=== PATIENT | female | born 1970 ===

== ENCOUNTER 2024-08-18 07:14 | Emergency (ER) | payer BC, SELFPAY ==
--- NOTE | ~2024-08-18 | CT_ITS ---
EXAMINATION: CT ABDOMEN AND PELVIS WITHOUT CONTRAST CLINICAL INFORMATION: Left flank pain COMPARISON: None available. TECHNIQUE: Multidetector volumetric imaging was performed from the superior aspect of the liver through the pubic symphysis. Sagittal and coronal reformatted images were obtained on the technologist's workstation. This CT examination was performed using dose optimization techniques as appropriate, variously including the following: *Automated exposure control *Adjustment of mA and/or kV according to patient size (this includes techniques or standardized protocols for targeted exams where dose is matched to indication/reason for exam; i.e. extremities or head) *Use of iterative reconstruction technique DLP: 535 mGy-cm FINDINGS: LUNG BASES: There is a minor infiltrate, at the left lung base, anterior left lower lobe near the inferior major fissure. It could be inflammatory. No pleural effusion. LIVER, GALLBLADDER, AND BILIARY TREE: There are a few too small to characterize foci scattered throughout the liver likely tiny cysts. IV contrast was not utilized. No suspicious masses of the liver. No intrahepatic biliary dilatation. 1 tiny gallstone in the gallbladder. No adjacent inflammatory change. PANCREAS: Unremarkable. SPLEEN: Unremarkable. ADRENAL GLANDS: Unremarkable. KIDNEYS AND URETERS: There is a 2 mm stone in the proximal left ureter causing mild left pelviectasis and hydronephrosis. There is an amalgamation of calcium in the dependent left renal pelvis at 8 mm. 1 mm stone right kidney without hydronephrosis. No suspicious mass or perinephric collection. BLADDER: Unremarkable. GASTROINTESTINAL TRACT: The small and large bowel are unremarkable. The appendix is unremarkable. ABDOMINAL WALL: Small fat-containing umbilical hernia. LYMPH NODES: Normal. VASCULAR: Unremarkable. PELVIC VISCERA: Uterus absent. No ascites or adnexal masses. OSSEOUS STRUCTURES: Unremarkable. CT/CT abdomen pelvis wo IV con IMPRESSION: Small stone proximal left ureter with resultant mild left hydronephrosis. Fleischner guidelines were followed. Electronically signed by: Tarik Liang MD 08/18/2024 10:09 AM EDT
[2024-08-18 07:18] VITALS: BP 132/32; PULSE 78; RESP 19; TEMP 36.6; O2SAT 98; BMI 26.6
[2024-08-18 07:34] LABS: MANUAL DIFF FLAG NO
[2024-08-18 07:36] LABS: Basophils Percent Auto 0.3 % (0-2); Eosinophils Absolute Auto 0.1 X10*3/uL (0.0-0.4); Eosinophils Percent Auto 0.3 % (0-4); Hematocrit 46.4 % (37.0-47.0); Hemoglobin 16.1 g/dl (12.0-16.0); Imm Gran Abs Auto 0.08 X10*3/uL (0.00-0.03); Imm Gran Pct Auto 0.5 % (0.0-0.4); Lymphocytes Absolute Auto 1.6 X10*3/uL (1.2-4.9); Lymphocytes Percent Auto 10.1 % (20-40); Mean Corpuscular HGB Conc 34.7 g/dl (31.0-35.0); Mean Corpuscular Hemoglobin 31.7 pg (27.0-33.0); Mean Corpuscular Volume 91.3 fL (80.0-98.0); Mean Platelet Volume 9.1 fL (9.4-12.3); Monocytes Absolute Auto 0.7 X10*3/uL (0.1-1.2); Monocytes Percent Auto 4.5 % (2-11); Neutrophils Absolute Auto 13.4 x10*3/uL (2.0-8.3); Neutrophils Percent Auto 84.3 % (45-73); Platelet Count 374 X10*3/uL (160-400); Red Blood Count 5.08 X10*6/uL (4.20-5.50); Red Cell Distribution Width 12.6 % (11.0-16.0); White Blood Count 15.9 X10*3/uL (4.8-10.8)
[2024-08-18 07:37] LABS: Appearance Urine Clear; Color Urine Yellow; Glucose Urine UA Negative (Negative); Leukocyte Esterase Urine Large (3+) (Negative); Nitrite Urine Positive (Negative); UMIC TRIGGER UACC YES; Urine Blood Small (1+) (Negative); Urine Ketones Negative (Negative); Urine Protein Negative (Neg-Trace)
[2024-08-18 07:39] LABS: UPreg QC Valid YES; Urine Pregnancy NEGATIVE (NEGATIVE)
[2024-08-18 07:47] LABS: Bacteria Urine 2+ (None Seen); Hyaline Casts Urine 0-2 /LPF (0-2); Squamous Epithelial Cell Urine 0-2 /HPF (0-2); UACC Culture Trigger YES; WBC Urine >50 /HPF (0-5)
[2024-08-18 07:54] LABS: Alanine Aminotransferase 13 U/L (0-31); Albumin Level 4.3 g/dL (3.5-5.0); Alkaline Phosphatase 104 U/L (39-117); Anion Gap 14 (12-20); Aspartate Amino Transferase 16 U/L (5-31); Bilirubin Direct 0.1 mg/dL (0.0-0.5); Bilirubin Total 0.5 mg/dL (0.0-1.0); Blood Urea Nitrogen 10 mg/dL (9-16); Calcium 9.8 mg/dL (8.4-10.2); Carbon Dioxide 27 mmol/L (22-29); Chloride 103 mmol/L (96-108); Creatinine Clr Calc Pharmacy 72.6; Estimated Glomerular Filt Rate > 60; Glucose Random 118 mg/dL (60-115); Lipase 21 U/L (8-78); Potassium 3.9 mmol/L (3.3-5.1); Sodium 140 mmol/L (135-145); Total Protein 7.7 g/dL (6.5-8.0)
--- NOTE | 2024-08-18 07:54 | ED.FEMALEGU ---
HPI - Female Genitourinary General Chief complaint: Urogenital-Female Stated complaint: nausea-abd pain Time Seen by Provider: 08/18/24 07:53 Source: patient and RN notes reviewed Mode of arrival: ambulatory Limitations: no limitations History of Present Illness ED Provider: Lexy Serna PA-C HPI Narrative: This is a 54-year-old female who presents emergency department with complaints of left-sided flank pain. Patient states that she has had ongoing intermittent problems on the left since December, has been seen by Urology, and was told that she needs a CT scan however patient reports that they did not order one. She endorses nausea, pain with urination, urinary frequency and urgency. She states that this pain is much different than previous. She is visibly uncomfortable and does not want to answer any other questions. Upon re-evaluation after receiving pain medication in the emergency department today, patient states that she has had ongoing left flank pain/problems since December 2023. She states she has had intermittent left-sided flank pain. She states that she has followed up with her primary care physician, where she would have urinalysis performed without any acute signs of infection. She states that there was a time that she had hematuria, as well as microscopic blood in her urine and was given referral to a urologist. Urologist had performed an ultrasound which revealed a kidney stone. The urologist who she saw on Friday through [facility] wanted to order a CT scan however they needed a prior authorization prior to performing this CT scan. She states that yesterday she went to the [facility], where she had one beer and shortly afterwards she developed severe left-sided flank pain. She states that the pain was sharp in nature and radiated into her right flank. She endorses some nausea and vomiting. She states that this pain is the same pain she has been experiencing for months however much worse. She reports that she has had a hysterectomy, no other belly surgeries. She also reports dysuria, urinary frequency and urgency. No fevers or chills. No chest pain. MD elicited complaint: dysuria, flank pain, urinary incontinence and difficulty urinating Pertinent past history: hysterectomy Onset (ago): month(s) Severity: severe Female Urogenital Radiation: L Flank Severity scale (1-10): >10 Quality of pain: cramping and sharp Consistency: constant and progressively worsening Vaginal discharge: none Vaginal bleeding: none Urinary symptoms: Dysuria, Urgency and Frequency Associated symptoms: denies other symptoms Treatment prior to arrival: none Patient : No Related Data Previous Rx's ?Medication ?Instructions ?Recorded cefpodoxime 200 mg tablet 200 mg PO Q12H 10 days #20 tabs 08/18/24 ketorolac 10 mg tablet 10 mg PO Q6H 3 days #12 tabs 08/18/24 ondansetron 4 mg disintegrating 4 mg PO Q6-8H PRN nausea and 08/18/24 tablet vomiting #12 tabs oxycodone 5 mg tablet 5 mg PO Q6H PRN pain #7 tabs 08/18/24 tamsulosin 0.4 mg capsule (Flomax) 0.4 mg PO DAILY 2 weeks #14 caps 08/18/24 Allergies Allergy/AdvReac Type Severity Reaction Status Date / Time erythromycin base Allergy Chest Pain Verified 08/18/24 07:20 Review of Systems Review of Systems: Yes all other systems are reviewed and are negative Constitutional: Constitutional: Reports as per [facility] Social History Social History Advance Directives: No Advance Directives Information Provided: No Do you have a plan to hurt others: No Plan Physical Exam Vital Signs: Vital Signs: Last Vital Signs Temp 98.5 F 08/18/24 13:51 Pulse 71 08/18/24 13:51 Resp 16 08/18/24 13:51 BP 98/49 L 08/18/24 13:51 Pulse Ox 97 08/18/24 13:51 O2 Del Method Room Air 08/18/24 13:51 BMI result Body Mass Index 26.6 Const: Other: Patient appears to be uncomfortable, grabbing at left flank General: cooperative Orientation/consciousness: patient oriented x3 Limitations: no limitations HEENT: Head: Yes normal to inspection, Yes normocephalic and Yes atraumatic Ears: hearing grossly normal bilaterally General nose exam: Normal external nose present Face and sinus: Yes normal facial exam Mouth: Normal oral and palatal mucosa present, oropharynx normal and moist mucous membranes Throat: Yes posterior oropharynx normal Eyes: General: appearance normal, both eyes and all related structures Eyelids: Yes eyelids normal Conjunctivae: conjunctivae normal Sclerae: sclerae normal Pupils: Equal, round and reactive pupils present EOM: EOMs intact bilaterally Neck: Neck: Yes normal visual inspection, Yes full ROM and Yes no lymphadenopathy Lymphatic: no lymphadenopathy noted Chest: Chest palpation & inspection: normal inspection of the chest Resp: Effort & Inspection: normal respiratory effort and able to speak in complete sentences Auscultation: clear to auscultation bilaterally, no crackles, no rales, no rhonchi and no wheezes Cardio: Rate: regular rate Rhythm: regular rhythm Heart sounds: S1 normal heart sound present and S2 normal heart sound present GI: Other: Abdomen is soft, with tenderness palpation in the left flank, no rebound or guarding. Inspection: Yes normal to inspection : Other: Positive CVA tenderness on the left Skin: General skin exam: no rashes or lesions noted Trauma: no lacerations or abrasions Wounds: no wounds Neuro: General: patient oriented x3 and moves all extremities Cranial nerves: Yes Equal, round and reactive pupils present Extrem: General: Yes normal to inspection Right upper extremity: normal to inspection Left upper extremity: normal to inspection Right lower extremity: normal to inspection Left lower extremity: normal to inspection Course Reevaluation(s) Reevaluation #1: Patient re-evaluated, feeling much better, nausea has since improved. Awaiting CT scan Time: 09:22 Reevaluation #2: CT scan returns, she does have a small stone proximal left ureter with resultant mild left hydronephrosis. There is also a malgamation of calcium in the dependent left renal pelvis at 8 mm. 1 mm stone right kidney without hydronephrosis. Spoke to Dr. Mohamud, who will review patient's case. Patient reporting worsening pain and nausea. Will medicate with Reglan, Benadryl, as well as start treatment for pyelonephritis with ceftriaxone [address] Mohamud recommendations. Time: 11:25 Reevaluation #3: Patient feeling much better after receiving medications. She would like to be discharged home. Dr. Mohamud recommending to treat for pyelonephritis with antibiotics and Flomax. Dr. Mohamud states that the nurse will triage Friday for symptoms. Discussed overall workup with patient and at bedside. Patient will be discharged on cefpodoxime 200 mg twice a day for 10 days. Also given Zofran, Toradol, Flomax, and oxycodone use for severe pain only. Stressed the urgency of returning if any new or worsening symptoms occur. She understands and agrees with plan. Patient stable for discharge. Time: 13:58 Medications Administered Discontinued Medications Generic Name Dose Route Start Last Admin Trade Name Neo PRN Reason Stop Dose Admin Acetaminophen 975 mg 08/18/24 10:58 08/18/24 13:47 Acetaminophen 325 Mg Tablet PO 08/18/24 10:59 Not Given ONCE ONE Diphenhydramine HCl 25 mg 08/18/24 11:23 08/18/24 12:26 Diphenhydramine Hcl 50 Mg/Ml Vial IVPUSH 08/18/24 11:24 25 mg ONCE ONE Administration Sodium Chloride 1,000 mls @ 999 mls/hr 08/18/24 08:03 08/18/24 09:37 Ns IV 08/18/24 09:03 Infused .Q1H1M ONE Infusion Sodium Chloride 1,000 mls @ 999 mls/hr 08/18/24 10:58 08/18/24 12:32 Ns IV 08/18/24 11:58 Infused .Q1H1M ONE Infusion Ceftriaxone Sodium 1 gm/ 50 mls @ 100 mls/hr 08/18/24 10:58 08/18/24 12:27 Sodium Chloride IV 08/18/24 11:27 Infused ONCE ONE Infusion Ketorolac Tromethamine 30 mg 08/18/24 08:03 08/18/24 08:25 Ketorolac Tromethamine 30 Mg/Ml Vial IVPUSH 08/18/24 08:04 30 mg ONCE ONE Administration Metoclopramide HCl 10 mg 08/18/24 11:23 08/18/24 12:26 Metoclopramide Hcl 10 Mg/2 Ml Vial IVPUSH 08/18/24 11:24 10 mg ONCE ONE Administration Ondansetron HCl 4 mg 08/18/24 08:02 08/18/24 08:25 Ondansetron Hcl 4 Mg/2 Ml Vial IVPUSH 08/18/24 08:03 4 mg ONCE ONE Administration Medical Decision Making Medical Decision Making MDM Narrative: This is a 54-year-old female who presents emergency department with complaints of left-sided flank pain which started several months ago and worsened last night. Endorsing nausea pain radiates into her left flank. Patient refusing to answer many questions, at bedside. She appears to be uncomfortable, grabbing at her left flank. The only information she had provided me was she has had problems since December, worsening since last night with urinary symptoms. Plan: Labs, UA, CT abdomen, IV fluids, Zofran, Toradol Differential Diagnosis Differential Diagnoses: The differential diagnosis associated with the presentation includes Obstructive uropathy, UTI, cystitis, pyelonephritis Admission/Observation Consideration of admission/observation: Escalation of care including admission/observation considered Consult Healthcare Provider Management of the patient was discussed with: Equipment Service Associate Dr. Mohamud Lab Data MDM Lab Attestation statement: I reviewed the patient's lab results. Labs revealing leukocytosis at 15.9, chemistry within normal limits, urine appears to be infected. 08/18/24 07:29 08/18/24 07:29 Labs: Lab Results 08/18/24 Range/Units 07:29 WBC 15.9 H (4.8-10.8) X10*3/uL RBC 5.08 (4.20-5.50) X10*6/uL Hgb 16.1 H (12.0-16.0) g/dl Hct 46.4 (37.0-47.0) % MCV 91.3 (80.0-98.0) fL MCH 31.7 (27.0-33.0) pg MCHC 34.7 (31.0-35.0) g/dl RDW 12.6 (11.0-16.0) % Plt Count 374 (160-400) X10*3/uL MPV 9.1 L (9.4-12.3) fL Immature Gran % (Auto) 0.5 H (0.0-0.4) % Neut % (Auto) 84.3 H (45-73) % Lymph % (Auto) 10.1 L (20-40) % [place] % (Auto) 4.5 (2-11) % Eos % (Auto) 0.3 (0-4) % Baso % (Auto) 0.3 (0-2) % Lymph # (Auto) 1.6 (1.2-4.9) X10*3/uL [place] # (Auto) 0.7 (0.1-1.2) X10*3/uL Eos # (Auto) 0.1 (0.0-0.4) X10*3/uL Baso # (Auto) 0.0 (0.0-0.2) X10*3/uL Abs Immat Gran (auto) 0.08 H (0.00-0.03) X10*3/uL Absolute Neuts (auto) 13.4 H (2.0-8.3) x10*3/uL Absolute Nucleated RBC 0.000 (0.0-0.012) X10*3/uL Nucleated RBC % (auto) 0.0 (0.0-0.2) /100WBC Sodium 140 (135-145) mmol/L Potassium 3.9 (3.3-5.1) mmol/L Chloride 103 (96-108) mmol/L Carbon Dioxide 27 (22-29) mmol/L Anion Gap 14 (12-20) BUN 10 (9-16) mg/dL Creatinine 0.82 (0.5-1.4) mg/dL Estim Creat Clear Calc 72.6 Estimated GFR > 60 Random Glucose 118 H (60-115) mg/dL Calcium 9.8 (8.4-10.2) mg/dL Total Bilirubin 0.5 (0.0-1.0) mg/dL Direct Bilirubin 0.1 (0.0-0.5) mg/dL AST 16 (5-31) U/L ALT 13 (0-31) U/L Alkaline Phosphatase 104 (39-117) U/L Total Protein 7.7 (6.5-8.0) g/dL Albumin 4.3 (3.5-5.0) g/dL Lipase 21 (8-78) U/L Urine Color Yellow Urine Appearance Clear Urine pH 7.0 (5.0-9.0) Ur Specific [place] 1.010 (1.005-1.025) Urine Protein Negative (Neg-Trace) mg/dL Urine Glucose (UA) Negative (Negative) mg/dL Urine Ketones Negative (Negative) mg/dL Urine Blood Small (1+) H (Negative) Urine Nitrite Positive H (Negative) Ur Leukocyte Esterase Large (3+) H (Negative) Urine RBC 3-5 H (0-2) /HPF Urine WBC >50 H (0-5) /HPF Ur Squamous Epith Cells 0-2 (0-2) /HPF Urine Bacteria 2+ (None Seen) Hyaline Casts 0-2 (0-2) /LPF Urine Test NEGATIVE (NEGATIVE) Radiology Impression Discussion of test interpretation with radiology: I have reviewed the radiologist's reading. Radiologist Impression: EXAMINATION: CT ABDOMEN AND PELVIS WITHOUT CONTRAST CLINICAL INFORMATION: Left flank pain COMPARISON: None available. TECHNIQUE: Multidetector volumetric imaging was performed from the superior aspect of the liver through the pubic symphysis. Sagittal and coronal reformatted images were obtained on the technologist's workstation. This CT examination was performed using dose optimization techniques as appropriate, variously including the following: *Automated exposure control *Adjustment of mA and/or kV according to patient size (this includes techniques or standardized protocols for targeted exams where dose is matched to indication/reason for exam; i.e. extremities or head) *Use of iterative reconstruction technique DLP: 535 mGy-cm FINDINGS: LUNG BASES: There is a minor infiltrate, at the left lung base, anterior left lower lobe near the inferior major fissure. It could be inflammatory. No pleural effusion. LIVER, GALLBLADDER, AND BILIARY TREE: There are a few too small to characterize foci scattered throughout the liver likely tiny cysts. IV contrast was not utilized. No suspicious masses of the liver. No intrahepatic biliary dilatation. 1 tiny gallstone in the gallbladder. No adjacent inflammatory change. PANCREAS: Unremarkable. SPLEEN: Unremarkable. ADRENAL GLANDS: Unremarkable. KIDNEYS AND URETERS: There is a 2 mm stone in the proximal left ureter causing mild left pelviectasis and hydronephrosis. There is an amalgamation of calcium in the dependent left renal pelvis at 8 mm. 1 mm stone right kidney without hydronephrosis. No suspicious mass or perinephric collection. BLADDER: Unremarkable. GASTROINTESTINAL TRACT: The small and large bowel are unremarkable. The appendix is unremarkable. ABDOMINAL WALL: Small fat-containing umbilical hernia. LYMPH NODES: Normal. VASCULAR: Unremarkable. PELVIC VISCERA: Uterus absent. No ascites or adnexal masses. OSSEOUS STRUCTURES: Unremarkable. CT/CT abdomen pelvis wo IV con IMPRESSION: Small stone proximal left ureter with resultant mild left hydronephrosis. Fleischner guidelines were followed. Electronically signed by: Tarik Liang MD 08/18/2024 10:09 AM EDT Dictated By: Tarik Liang MD Critical Care Time Critical Care Time Critical Care Time: Yes Total Critical Care Time: 35 Attestation: I have personally provided critical care time exclusive of time spent on separately billable procedures. Time includes review of lab data, radiology results, discussion with consultants, and monitoring for potential decompensation. Intervention performed as documented. Discharge Plan Discharge Clinical Impression: Pyelonephritis, Kidney stone Patient Disposition: Home, Self-Care Instructions: Kidney Infection (ED) Additional Instructions: You were seen in the emergency department today. You were found to have a kidney infection also known as pyelonephritis. You also have evidence of a kidney stone. Please take prescribed antibiotic and medications as directed. Cefpodoxime is a antibiotic, please start this tomorrow as you already received a dose today. Zofran (ondansetron) is a antinausea medication. Take this only as needed. Flomax is a medication that helps to pass a kidney stone. Take this once a day. Start this tomorrow Take Toradol as needed for pain. Do not mix any other NSAID medications if you are taking this medication. You may take Tylenol as needed. You may also take oxycodone, this is a narcotic pain medication, please only take as prescribed for severe pain only. Please be advised that this can cause drowsiness. This is also addictive medication therefore it is very important that you only take as needed for severe pain only. Drink plenty of fluids get plenty of rest. Follow-up with the urologist. The triage nurse should call you on Friday however you may call the office to set this up. See referral number. If any new or worsening symptoms occur including but not limited to worsening pain, fevers, chills, vomiting, please return for re-evaluation. Prescriptions: New cefpodoxime 200 mg tablet 200 mg PO Q12H 10 Days Qty: 20 0RF Rx Instructions: must administer with a meal/food tamsulosin [Flomax] 0.4 mg capsule 0.4 mg PO DAILY 14 Days Qty: 14 0RF ondansetron 4 mg tablet,disintegrating 4 mg PO Q6-8H PRN (Reason: nausea and vomiting) Qty: 12 0RF oxycodone 5 mg tablet 5 mg PO Q6H PRN (Reason: pain) Qty: 7 0RF Rx Instructions: Partial Fill upon patient request. ketorolac 10 mg tablet 10 mg PO Q6H 3 Days Qty: 12 0RF Referrals: [facility] [place] [facility] Services [Provider Group] Stand Alone Forms: Work/School Release Print Language: Bruneian
[2024-08-18] MEDS: ondansetron HCL 4 MG/2 ML VIAL IVPUSH (08:25)
[2024-08-18] MEDS: Ketorolac Tromethamine 30 MG/ML VIAL IVPUSH (08:25)
[2024-08-18] MEDS: 0.9 % Sodium Chloride 1,000 ML 999 ML IV ×2 (08:30→11:32)
--- NOTE | 2024-08-18 09:17 | PC.NURSE ---
IV established, medicated per the MAR. continues to ambulate independently to bathroom. reports some improvement in pain s/p medication administration. awaiting results from ct scan at this time.
[2024-08-18] MEDS: cefTRIAXone sodium 1 GM in 0.9 % Sodium Chloride 50 ML IV (11:33)
[2024-08-18] MEDS: diphenhydrAMINE HCL 50 MG/ML VIAL 25 MG IVPUSH (12:26)
[2024-08-18] MEDS: Metoclopramide HCl 10 MG/2 ML VIAL IVPUSH (12:26)
[2024-08-18 13:51] VITALS: BP 98/49; PULSE 71; RESP 16; TEMP 36.9; O2SAT 97
[2024-08-18] MEDS: Tamsulosin HCL 0.4 MG CAPSULE PO (14:08)
[2024-08-18 14:24] VITALS: BP 98/49; PULSE 71; RESP 16; TEMP 36.9; O2SAT 97
== END 2024-08-18 14:24 | disposition home or self-care (01) ==
PROVIDERS: Emergency Provider Student in an Organized Health Care Education/Training Program
DX: N20.2 Calculus of kidney with calculus of ureter (principal)
CPT/HCPCS: 36415; 74176; 80048; 80076; 81001; 81025; 83690; 85025; 87040; 87086; 87088; 87186; 96361; 96374; 96375; 99285; J0696; J1200; J1885; J2405; J2765

== ENCOUNTER 2024-08-26 10:07 | Outpatient (AMB) | payer BC, SELFPAY ==
--- NOTE | 2024-08-26 10:26 | A.OFFVIS_ITS ---
Intake Visit Reasons: ER follow up/ureteral stone Intake Note: Patient is present for ER F/U URETERAL STONE Urology Medication:TAMSULOSIN Antibiotic Allergy:NONE Blood Thinner:NONE Microphone Operator Required: No Allergies erythromycin base Allergy (Verified 08/26/24 10:27) Chest Pain HPI Comments Details: Maria D is a pleasant female patient. She is a patient of . She is seen for the following urologic conditions - nephrolithiasis Has been having intermittent pain left side Went to emergency room last week CT imaging shows proximal ureteric stone and cluster within left kidney No prior stone episode Does say she has had a prior episode proximally 6 months ago that was also painful to pass Continues with pain and discomfort in his had difficulty sleeping Laboratories with WBC 15.9, urine with positive nitrites This did respond to antibiotics as treatment for UTI Offered ureteroscopy next week She says could we please try and get this done this week as it has been causing her a great deal of pain and discomfort Review of Systems Const Denies chills and Denies fever(s) Card Reports no additional complaints and Denies syncope Resp Denies cough GI Denies abdominal pain and Denies heartburn Reports as per HPI and Denies change in libido Neuro Denies syncope Psych Denies change in libido Endo Denies change in libido Physical Exam Const General: cooperative, healthy appearing, comfortable and no acute distress Orientation/consciousness: patient oriented x3 HEENT Face and sinus: Yes normal facial exam Mouth: moist mucous membranes Neck Neck: Yes normal visual inspection, Yes full ROM and Yes trachea midline Chest Chest palpation & inspection: normal inspection of the chest Resp Effort & Inspection: normal respiratory effort, able to speak in complete sentences and no respiratory distress GI Inspection: Yes normal to inspection Back/Spine/Pelvis Cervical Spine: normal cervical lordosis Thoracic/Lumbar Spine: thoracic and lumbar spine normal to inspection Skin General skin exam: no rashes or lesions noted Neuro General: patient oriented x3, gait normal, tone normal and moves all extremities Extrem General: Yes normal to inspection and Yes capillary refill normal Assessment & Plan Assessment & Plan (1) Kidney stone: Code(s): N20.0 - Calculus of kidney Category: Medical Plan Ureteroscopy We discussed the nature of the decision and reasonable alternatives for performing ureteroscopy. Options such as medical therapy were discussed. Interventions include chemical dissolution, ESWL, ureteroscopy with laser lithotripsy and stent placement, PCNL. The relative uncertainties and benefits related to each alternate procedure were adequately discussed. General surgical risks including, but not limited to - pain, bleeding, infection, myocardial infarction, pulmonary embolus, deep vein thrombosis and cerebrovascular accident which may result in further hospitalization were discussed. Full disclosure of the procedure as well as all major risks, benefits and complications were discussed including but not limited to damage to the urethra, bladder and kidney infection, damage to the ureter, stent migration or malposition, scarring to the renal pelvis, remnant stone fragments, subsequent stone passage with need for secondary procedures. The overall secondary procedure rate is approximately 10-15%. The overall clearance rate is approximately 90-95%. Success of the procedure in the short-term does not necessarily guarantee that long-term success will be maintained. Suitable follow up will need to be maintained. The patient showed understanding of discussion and wishes to proceed with - cystoscopy, retrograde, ureteroscopy, possible lithotripsy/stone basketing and stent on the left side Patient Instructions: Imaging studies, laboratory and physical exam results were discussed and reviewed in detail. No major barriers to patient understanding were identified. An opportunity to ask questions regarding the treatment plan was provided. All questions were answered. The patient expressed understanding and agreement with the above treatment plan. The patient is aware they should contact our office by phone for worsening of their current condition or the appearance of new urologic symptoms. Compliance is encouraged with any medications and followup testing that is ordered. It is a privilege to participate in the urologic care of your patient. If you have any questions or concerns regarding treatment for the above conditions, or other urologic issues, please do not hesitate to contact me. The office telephone contact is [phone]. This note is constructed using voice recognition software. While every effort has been made to ensure accuracy technologist development errors may have been included. Yours sincerely, Dr Edwar Mohamud MD, [facility] - Urology Providers of Expert, Compassionate Care for the Genitourinary System Coding Level of Care Code New Pt Level 4 (94371) Diagnoses Kidney stone N20.0
== END 2024-08-26 10:58 | disposition home or self-care (01) ==
PROVIDERS: PCP Internal Medicine; Visit Provider Urology
DX: N20.0 Calculus of kidney (principal)
CPT/HCPCS: 99204

== ENCOUNTER → 2024-08-26 10:07 | Outpatient (BNVA) | payer BC, SELFPAY | PROVIDERS: PCP Internal Medicine; Visit Provider Urology ==

== ENCOUNTER 2024-08-27 13:46 | Day surgery (SDC) | payer BC, SELFPAY ==
[2024-08-27] VITALS (8 sets, daily range): BP systolic 115–130; BP diastolic 59–73; PULSE 62–68; RESP 14–16; TEMP 36.1–36.7; O2SAT 94–96; BMI 27.5
--- NOTE | 2024-08-27 13:54 | P.CONAN_ITS ---
FORMERLY [facility] Past Medical History Medical History (Updated 08/27/24 @ 14:14 by Ananya Vick RN) Seasonal allergies Family History Family History (Updated 08/27/24 @ 14:10 by Ananya Vick RN) Other Hx of breast reduction, elective Family history of problems with anesthesia: No Surgical History Surgical History (Updated 08/27/24 @ 14:09 by Ananya Vick RN) H/O: hysterectomy History of Problems with Anesthesia: No Social History Social History Are you a primary human services care specialist to a significant other at home: No Do you presently have visiting nurse or other home services: No Patient Tobacco Use Status: Current everyday Tobacco user Tobacco use type: Cigarette Cigarette Packs Per Day: 10 Cigarettes Per Day: 200.0 Meds Allergies Allergy/AdvReac Type Severity Reaction Status Date / Time erythromycin base Allergy Chest Pain Verified 08/27/24 14:01 Home Medications ?Medication ?Instructions ?Recorded ?Confirmed ?Last Taken ?Type estradiol 0.05 mg/24 hr semiweekly 1 patch topical 2XW 08/27/24 08/27/24 Unknown History transdermal patch (Lyllana) fluticasone propionate 50 intranasal 08/27/24 08/27/24 Unknown History mcg/actuation nasal spray,suspension Exam Airway Mallampati Class: II (top right cap) TM Dist: >3cm Neck ROM: Full Heart: rrr Lungs: cta Assessment and Plan Assessment Anesthesia Assessment: Anesthesia Plan Discussed and Chart Reviewed Final Anesthetic Review Family History of Problems with Anesthesia: No History of Problems with Anesthesia: No NPO: Yes ASA Class: II Final Preanesthetic Review: No Changes in Pt Med Stat, Meds/Allgs Chart Reviewed and Consent Obtained/Reviewed Patient Risk: Low Procedure Risk: Low Anesthetic Plan Anesthetic Plan: GA Disposition: Standard PACU
[2024-08-27] MEDS: Lactated Ringers 1,000 ML 50 ML IVCONT (14:39)
--- NOTE | 2024-08-27 16:26 | MHC.SHP ---
Pre-Procedural Eval Section A - 24 Hr Update-Section A only Date of Service: 08/27/24 The patient is an INPATIENT: No Changes since office visit: No Cold of Flu in the past 2 weeks, No New Medical Problems, No Changes in Medication and No Patient answered all questions The patient has been examined within 24 hours of the surgical procedure. The History & Physical has been completed within 30 days and I have reviewed it.: Yes Section B - Complete if H&P > 30 days Chief Complaint: Calculus of ureter Allergies: Allergies Allergy/AdvReac Type Severity Reaction Status Date / Time erythromycin base Allergy Chest Pain Verified 08/27/24 14:01 Plan Diagnosis/Plan: Unchanged (left ureteric stone procedure) I have reviewed the history and physical and performed a pertinent physical examination on my patient. No changes have occurred unless specified. Time Spent With Patient Time: Total time managing care of this patient today ____ minutes.
--- NOTE | 2024-08-27 17:12 | W.PM.OPN ---
Operative Note Operative Note Date of Service: 08/27/24 Narrative: PreOperative Diagnosis: Left proximal ureteric stone, left renal stones Post Operative Diagnosis: same Procedure: - cystoscopy, left retrograde - left dilatation of ureteric orifice under fluoroscopy - left ureteroscopy, laser lithotripsy of multiple stones, stone basketing - stones greater than 1.5 cm in length - left stent placement Surgeon: Dr Edwar Mohamud Anesthesia: General Indications for procedure: Recent presentation to emergency room. Left proximal ureteric stone, conglomerate of stones in left upper renal pelvis. She presents with persistent pain through the office. Recommendation for intervention. Procedure: After informed consent was verified patient was brought to the operating placed in supine position. Anesthesia was administered per protocol. Patient was placed in modified dorsal lithotomy position and prepped and draped in a sterile fashion. Safety pause time-out and side of surgery confirmed. Antibiotics confirmed. 22 Senegalese cystoscope was inserted per urethra. Bladder was normal in its entirety. Both ureteric orifices were in normal position. The Left ureteric orifice was cannulated and a retrograde examination was performed. filling defects seen at proximal left ureter. A Sensor guidewire was placed up to the level of the renal pelvis under fluoroscopy. The rigid cystoscope was removed and the inner cannula of ureteric access sheath was used under fluoroscopy to dilate the ureteric orifice. The ureteric access sheath was placed and the inner cannula with access wire removed. The digital flexible ureteral scope was placed. stone encountered in left proximal ureter. Using the 272 holmium laser fiber the stone was broken into small pieces. The scope was advanced into the renal pelvis. The scope was then advanced into the upper pole which was the location of the stones seen on imaging. Proximally 1.5 cm conglomeration of stones was found. Using the 272 laser this conglomeration was broken into small pieces using combination of hammer and dusting technique. The area was then irrigated. Using the open-ended catheter the area was irrigated. Using a 1.9 Senegalese ZeroTip basket stone fragments were removed. At the completion of the stone procedure a Sensor wire was placed back into the renal pelvis. A 6 Sen[place]alese by 22 cm double-J stent was placed into the renal pelvis and bladder under a combination of fluoroscopy and direct visualization. The symphisis pubis was used as a radiographic marker to release the stent and good coil was seen within the bladder confirming position The bladder was emptied. The patient tolerated the procedure well and was extubated in the operating room, and transferred in stable condition to the recovery area. Pathology: Stones Drains: stent as described
[2024-08-27] MEDS: Phenazopyridine HCL 100 MG TABLET PO (17:46)
[2024-08-27] MEDS: Ketorolac Tromethamine 15 MG/ML VIAL IVPUSH (17:46)
[2024-08-27] MEDS: Haloperidol Lactate 5 MG/ML VIAL 1 MG IVPUSH (17:50)
[2024-08-27] MEDS: droPERidol 5 MG/2 ML VIAL 0.625 MG IVPUSH (18:14)
[2024-09-03 04:18] LABS: Stone Source KIDNEY
== END 2024-08-27 18:43 | disposition home or self-care (01) ==
PROVIDERS: Visit Provider Urology
PROC: (CPT 52356; principal; 2024-08-27 16:00)
DX: N20.1 Calculus of ureter (principal); N20.0 Calculus of kidney; J30.2 Other seasonal allergic rhinitis; Z79.51 Long term (current) use of inhaled steroids; Z79.899 Other long term (current) drug therapy; Z88.1 Allergy status to other antibiotic agents; F17.210 Nicotine dependence, cigarettes, uncomplicated
CPT/HCPCS: 52356; 52352; 82365; 88300; C1758; C1769; C1894; C2617; J0131; J1100; J1630; J1790; J1885; J1956; J2003; J2250; J2405; J2704; J3010; Q9967

== ENCOUNTER → 2024-08-27 13:46 | Outpatient (BNV) | payer BC, SELFPAY | PROVIDERS: Visit Provider Urology | DX: N20.1 Calculus of ureter (principal); N20.0 Calculus of kidney | CPT/HCPCS: 52332; 52352; 74420 ==

== ENCOUNTER 2024-09-16 12:44 | Outpatient (AMB) | payer BC, SELFPAY ==
--- NOTE | 2024-09-16 13:08 | MHC.OFFVIS ---
Intake Visit Reasons: Stent removal Intake Note: Patient is present for Cystoscopy/Stent Removal Urology Med: Tamsulosin Antibiotic Allergy: Erythromycin Base Blood Thinner: None URO G Cystoscope Lot:[id number] EXP:03/04/2027 Allergies erythromycin base Allergy (Verified 08/27/24 14:01) Chest Pain HPI Comments Details: Maria D is a pleasant female patient. She is a patient of . She is seen for the following urologic conditions - nephrolithiasis Here for stent removal Mixed calcium stones Recommend decreased salt and increased water - was taking excess salt secondary to low blood pressure Six-month follow-up nurse-practitioner She really would like to avoid recurrence Start vitamin B6 50 mg Nephrolithiasis Prior left renal stones 09/12/2024 CT imaging shows proximal ureteric stone and cluster within left kidney Stone composition - 09/16 Calcium Oxalate Dihydrate (Weddellite) 15% Calcium Oxalate Monohydrate (Whewellite) 70% Carbonate Apatite (Dahllite) 15% PFSH Medical History (Updated 09/16/24 @ 13:57 by Edwar Mohamud MD) Seasonal allergies Surgical History (Updated 08/27/24 @ 14:09 by Ananya Vick RN) H/O: hysterectomy Family History (Updated 08/27/24 @ 14:10 by Ananya Vick RN) Other Hx of breast reduction, elective Social History Are you a primary caregivers non medical to a significant other at home: No Do you presently have visiting nurse or other home services: No Patient Tobacco Use Status: Current everyday Tobacco user Tobacco use type: Cigarette Review of Systems Const Denies chills and Denies fever(s) Card Reports no additional complaints and Denies syncope Resp Denies cough GI Denies abdominal pain and Denies heartburn Reports as per HPI and Denies change in libido Neuro Denies syncope Psych Denies change in libido Endo Denies change in libido Physical Exam Const General: cooperative, healthy appearing, comfortable and no acute distress Orientation/consciousness: patient oriented x3 HEENT Face and sinus: Yes normal facial exam Mouth: moist mucous membranes Neck Neck: Yes normal visual inspection, Yes full ROM and Yes trachea midline Chest Chest palpation & inspection: normal inspection of the chest Resp Effort & Inspection: normal respiratory effort, able to speak in complete sentences and no respiratory distress GI Inspection: Yes normal to inspection Back/Spine/Pelvis Cervical Spine: normal cervical lordosis Thoracic/Lumbar Spine: thoracic and lumbar spine normal to inspection Skin General skin exam: no rashes or lesions noted Neuro General: patient oriented x3, gait normal, tone normal and moves all extremities Extrem General: Yes normal to inspection and Yes capillary refill normal Office Procedures Cystoscopy Consent Discussed risk and benefit or proposed procedure with the patient. Information consent for procedure given to the patient. Discussed technical aspects, risks, benefits and alternatives in full. Addressed all of the patient's questions and concerns regarding the procedure. The patient demonstrated knowledge and understanding. They wish to proceed with this procedure. Preparation The patient was prepped in the usual manner. A bench assembler operator was present and in the room. Genitalia was prepped with betadine solution in a sterile manner. Lidocaine Jelly 2% was placed into the urethra and 16Fr flexible Olympus cystoscope was inserted into the meatus after adequate lubrication. Procedure A well lubricated 16 Tamazight cystoscope was placed No abnormality noted of urethra during placement Indwelling stent seen within bladder emerging from left ureteric orifices The stent was grasped with a 3 prong grasper and removed without difficulty The patient tolerated the procedure well [id number] with stent removal DISPOSABLE SCOPE URO-G FLEXIBLE SCOPE Procedure code (CPT) selection complete Office Meds lidocaine HCl 2 % mucosal jelly in applicator Performing Provider: Edwar Mohamud MD Performing Location: [facility] Administered by: Erich Pinon RN on 09/16/24 13:25 Dose Route Admin Location Dispensed Lot Number Expiration Date NDC Senior Clinical Sas Programmer 10 mL intra-urethral 10 mL nitrofurantoin monohydrate/macrocrystals 100 mg capsule Performing Provider: Edwar Mohamud MD Performing Location: [facility] Administered by: Erich Pinon RN on 09/16/24 13:25 Dose Route Admin Location Dispensed Lot Number Expiration Date NDC Senior Clinical Sas Programmer 100 mg PO 1 cap naproxen 500 mg tablet Performing Provider: Edwar Mohamud MD Performing Location: [facility] Administered by: Erich Pinon RN on 09/16/24 13:25 Dose Route Admin Location Dispensed Lot Number Expiration Date NDC Senior Clinical Sas Programmer 500 mg PO 1 tab Results AMB Urinalysis, Automated UA Leukoctes 0 Bisi/uL Last Edit by ANDREINA Khoury on 09/16/24 13:18 UA Nitrite Negative Last Edit by Gwendolyn Whiting, RMA on 09/16/24 13:18 UA Urobilinogen 0.2 mg/dL Last Edit by Gwendolyn Whiting, RMA on 09/16/24 13:18 UA Protein 0 mg/dL Last Edit by Gwendolyn Whiting, RMA on 09/16/24 13:18 UA pH 6.5 Last Edit by Gwendolyn Whiting, RMA on 09/16/24 13:18 UA Blood 200 Serge/uL Last Edit by Gwendolyn Whiting, RMA on 09/16/24 13:18 UA Specific [place] 1.010 Last Edit by Gwendolyn Whiting, RMA on 09/16/24 13:18 UA Ketone Negative Last Edit by Gwendolyn Whiting, RMA on 09/16/24 13:18 UA Bilirubin 0 mg/dL Last Edit by Gwendolyn Whiting, RMA on 09/16/24 13:18 UA Glucose 0 mg/dL Last Edit by Gwendolyn Whiting, RMA on 09/16/24 13:18 Results Reviewed Results Reviewed: Laboratory Last Values Urine pH (Auto) 6.5 09/16/24 13:10 Specific [place] (Auto) 1.010 09/16/24 13:10 Urine Protein (Auto) 0 mg/dL 09/16/24 13:10 Glucose (UA)(Auto) 0 mg/dL 09/16/24 13:10 Urine Ketones (Auto) Negative 09/16/24 13:10 Urine Blood (Auto) 200 Serge/uL 09/16/24 13:10 Urine Nitrite (Auto) Negative 09/16/24 13:10 Urine Bilirubin (Auto) 0 mg/dL 09/16/24 13:10 Urine Urobilinogen (Auto) 0.2 mg/dL 09/16/24 13:10 Leukocyte Esterase (Auto) 0 Bisi/uL 09/16/24 13:10 Assessment & Plan Assessment & Plan (1) Kidney stone: Code(s): N20.0 - Calculus of kidney Category: Medical Plan Three-month follow-up renal ultrasound Orders: Orders AMB Urinalysis Automated Today Z13.9 - Encounter for screening, unspecified AMB Cystoscopy Today N20.0 - Calculus of kidney Medications: New pyridoxine (vitamin B6) 50 mg PO DAILY 90 days 90 tabs 1RF N20.0 - Calculus of kidney Patient Instructions: Imaging studies, laboratory and physical exam results were discussed and reviewed in detail. No major barriers to patient understanding were identified. An opportunity to ask questions regarding the treatment plan was provided. All questions were answered. The patient expressed understanding and agreement with the above treatment plan. The patient is aware they should contact our office by phone for worsening of their current condition or the appearance of new urologic symptoms. Compliance is encouraged with any medications and followup testing that is ordered. It is a privilege to participate in the urologic care of your patient. If you have any questions or concerns regarding treatment for the above conditions, or other urologic issues, please do not hesitate to contact me. The office telephone contact is [phone]. This note is constructed using voice recognition software. While every effort has been made to ensure accuracy aws solution architect errors may have been included. Yours sincerely, Dr Edwar Mohamud MD, [facility] - Urology Providers of Expert, Compassionate Care for the Genitourinary System Coding Level of Care Code Est Pt Level 4 (46713) Diagnoses Kidney stone N20.0 CPT Codes Cystoscopy - CPT: 78745-[id number] with stent removal ([id number])
== END 2024-09-16 14:01 | disposition home or self-care (01) ==
PROVIDERS: Visit Provider Urology
DX: N20.0 Calculus of kidney (principal); Z96.0 Presence of urogenital implants
CPT/HCPCS: 52310; 99214

== ENCOUNTER → 2024-09-16 12:44 | Outpatient (BNVA) | payer BC, SELFPAY | PROVIDERS: Visit Provider Urology | DX: N20.0 Calculus of kidney (principal); Z96.0 Presence of urogenital implants | CPT/HCPCS: 52310; 81003 ==

== ENCOUNTER 2024-12-03 15:23 | Outpatient (REF) | payer BC, SELFPAY ==
--- NOTE | ~2024-12-03 | US_ITS ---
EXAMINATION: US KIDNEY BILATERAL HISTORY: N20.0 - Calculus of kidney TECHNIQUE: Real-time grayscale ultrasound imaging of the kidneys was performed and images were reviewed. COMPARISON: Correlation is made with a CT of the abdomen and pelvis without contrast dated 08/18/2024. FINDINGS: Right kidney: The right kidney measures 12.1 x 3.7 x 6.6 cm. Renal parenchymal echotexture and thickness are normal. There are no masses. There is no hydronephrosis or renal calculi. Left Kidney: The left kidney measures 10.5 x 5.8 x 5.2 cm. Renal parenchymal echotexture and thickness are normal. There are no masses. There is an 8 mm nonobstructing calculus at the lower pole. There is no hydronephrosis. US/US renal BI IMPRESSION: 8 mm nonobstructing left renal calculus. Otherwise unremarkable renal ultrasound. Electronically signed by: Mil Barreto MD 12/07/2024 07:24 AM MARTÍNEZ
--- OUTSIDE RECORDS SUMMARY | 2024-12-03 15:25 | XMS_ITS | Continuity of Care Document ---
Author Organization [place] [facility],, FLORENCIA VARGAS MD Address [address] [facility] [address] [place] [address] Care Team Providers Care Customer Service Trainer Name Role Phone MARGOT CHARLES Primary Care Provide r Assessment No assessment recorded. Plan of Treatment Reminders Order Date Submit Date Provider Last Modified By Organization Details Last Modified Time Details Appointments ANNUAL EXAM 2025 08:00A M Florencia Vargas MD Not available Not available Not available Lab cytology report, thin prep, smear or scraping, cervical or vaginal 2024 025 ELYSIAN FIELDS [facility], [address] [place], [address], 11/29/2024 08:47:26 hemoglobi n, gastroint estinal, stool 2024 025 [email or web address] 1 In-Office Order, Internal Use Only DO Not Attach Compendium DO Not Attach Compendium, Do Not Delete/merge, [id number] 11/29/2024 08:47:16 Referral None recorded. Procedures None recorded. Surgeries None recorded. Imaging MAMMO, screening , digital, bilateral - Breast Aspiratio n and/or Biopsy if needed 2024 025 [facility], [address], [address], [place], [address], 11/29/2024 16:17:40 Medication Orders estradiol 0.05 mg/24 hr weekly transderm al patch 2024 025 ELYSIAN FIELDS [id number], [address] [place], [address], 11/29/2024 08:47:18 Patient TargetsNo targets recorded. Patient Instructions Encounter Date Encounter Id Patient Instructions Last Modified By Organization Details Last Modified Time 11/29/2024 [id number] learning about healthy weight [email or web address] Not available 11/29/2024 08:47:16 She is here as a new patient for annual exam. She had a hysterectomy in 2008 and then a BSO with lysis of adhesions on 2009. She has been on the patch ever since. She has no reason to be on twice a week patch, she would prefer weekly as she forgets to change it. She has been off her patch for 2 weeks as she ran out, and she is having hot flashes and night sweats and would like to restart. She appears to be doing well. We discussed having her continue to take hormone replacement therapy. We discussed the need to take a progestin if a uterus is present, and the rationale behind that. We discussed the stated risks of one in 10,000 of development of a blood clot/DVT/PE that could be life threatening. We discussed the Women's Health Initiative study and the findings. We discused the PEPPI study as well. She is aware that there are conflicting reports in the medical literature concerning the risks and benefits of HRT. We disussed that women are advised by ACOG to take HRT in the lowest dose necessary, and for the shortest time necessary, to control their symptoms. After a long discussion of the potential risks and benefits of HRT she elects to continue HRT. All questions were answered. Rx for HRT is called in to the pharmacy. Call if any vaginal bleeding occurs upon initiation of HRT, or at any time postmenopausally. Not available 11/29/2024 09:33:11 Reason for Referral None Reported. Results Created Date Observation Date Name Description Value Unit Range Abnormal Flag Note LastModifiedBy Organization Detail LastModifiedTime 11/29/1911/29/2024 hemog lobin , gastr ointe jaspreet l, stool Occult Blood negati ve Not Available In-Office Order Internal Use Only DO Not Attach Compendium DO Not Attach Compendium, Do Not Delete/merge, [id number] 11/29/2024 08:28:20 11/29/19 25 11/29/2024 MAMMO , scree aguila, digit al, bilat eral No observ ation record ed. [facility] [address] [place], [address], 11/30/2024 08:00:36 Result Notes None recorded. Problems Name Problem SNOMED Code Status Onset Date Resolution Date Notes Provider Name and Address Organization Details Recorded Time Menopausal syndrome 180259031 Active 025 Florencia Vargas MD [address], [place], [address], [place] - [facility], 08:45:38 Problem Notes None recorded. Procedures Surgical History Date Name Laterality Status Provider Name and Address Organization Details Recorded Time 08/24/20 24 kidney stone analysis completed Iris Stern in [facility], 11/29/2024 08:23:16 07/25/20 10 laparoscopic bilateral salpingo-oophore ctomy completed Florencia Vargas MD [address], [place], [address], [place] [facility], 11/29/2024 08:07:25 10/24/20 09 hysterectomy completed Floerncia Vargas MD [address], [place], [address], [place] [facility], 11/29/2024 08:08:46 11/24/19 09 Breast Implants completed Iris Stern in [facility], 11/29/2024 08:24:25 Imaging Results None recorded. Procedure Notes None recorded. Medical Equipment None Reported. Allergies Allergen ID Allergen Name Allergen Category Reaction Reaction Severity Criticality Documentation Date Start Date Code Code System Note Provider Name and Address Organization Details Recorded Time 51557 Bactrim medicatio n rash Not available Not available 11/29/2024 82898 9 RxNorm Iris GabriellayTRISH smith in [facility], 08:52:12 [address]3875 erythromy willam medicatio n rash Not available Not available 11/29/2024 4053 RxNorm Iris MeczywTRISH branch in [facility], 08:52:33 Medications Name Sig Start Date Stop Date Status Note LastModified by Organization Details LastModified Time amoxicillin 500 mg capsule TAKE ONE CAPSULE BY MOUTH EVERY 8 HOURS UNTIL FINISHED 11/29 completed Not Available Not Available Not Available cefpodoxime 200 mg tablet TAKE ONE TABLET BY MOUTH EVERY 12 HOURS FOR 10 DAYS MUST ADMINISTE R WITH A MEAL /FOOD 11/29 completed Not Available Not Available Not Available fluconazole 150 mg tablet TAKE ONE TABLET BY MOUTH EVERY DAY FOR 1 DOSE 11/29 completed Not Available Not Available Not Available sulfamethox azole 400 mg-trimetho prim 80 mg tablet TAKE ONE TABLET BY MOUTH EVERY DAY active Not Available Not Available No t Available metronidazo le 0.75 % (37.5 mg/5 gram) vaginal gel INSERT 1 APPLICATO RFUL VAGINALLY ONCE DAILY AT BEDTIME FOR 5 DAYS 11/29 completed Not Available Not Available Not Available prednisone 20 mg tablet TAKE ONE TABLET BY MOUTH EVERY DAY FOR 5 DAYS 11/29 completed Not Available Not Available Not Available estradiol 0.05 mg/24 hr weekly transdermal patch Apply 1 patch every week by transderm al route for 84 days. 2024 active Not Available Not Available Not Avai lable ciprofloxac in 250 mg tablet TAKE 1 TABLET BY MOUTH ONCE EVERY 12 HOURS 11/29 completed Not Available Not Available Not Available tramadol 50 mg tablet TAKE ONE TABLET BY MOUTH EVERY 6 HOURS NEEDED FOR PAIN FOR UP TO 7 DAYS 11/29 completed Not Available Not Available Not Available ketorolac 10 mg tablet TAKE ONE TABLET BY MOUTH EVERY 6 HOURS FOR 3 DAYS 11/29 completed Not Available Not Available Not Available lorazepam 0.5 mg tablet TAKE ONE TABLET BY MOUTH EVERY DAY AT BEDTIME NEEDED FOR FOR ANXIETY active Not Available Not Available No t Available tamsulosin 0.4 mg capsule TAKE ONE CAPSULE BY MOUTH EVERY DAY 11/29 completed Not Available Not Available Not Available phenazopyri dine 100 mg tablet TAKE ONE TABLET BY MOUTH THREE TIMES A DAY NEEDED FOR SPASM FOR 4 DAYS 11/29 completed Not Available Not Available Not Available benzonatate 100 mg capsule TAKE TWO CAPSULES BY MOUTH THREE TIMES A DAY NEEDED FOR COUGH FOR 7 DAYS 11/29 completed Not Available Not Available Not Available Tobrex 0.3 % eye ointment INSTILL THIN RIBBON IN THE LEFT EYE THREE TIMES A DAY active Not Available Not Available No t Available pyridoxine (vitamin B6) 50 mg tablet TAKE ONE TABLET BY MOUTH EVERY DAY 11/29 completed Not Available Not Available Not Available clindamycin 2 % vaginal cream INSERT ONE APPLICATO RFUL VAGINALLY DAILY AT BEDTIME FOR 7 DAYS 11/29 completed Not Available Not Available Not Available clobetasol 0.05 % topical ointment APPLY A THIN LAYER TO AFFECTED AREA S) TWO TIMES A DAY FOR NO LONGER THAN 14 DAYS 11/29 completed Not Available Not Available Not Available ondansetron 4 mg disintegrat ing tablet DISSOLVE ONE TABLET BY MOUTH EVERY 6-8 HOURS NEEDED FOR NAUSEA AND VOMITING 11/29 completed Not Available Not Available Not Available fluticasone propionate 50 mcg/actuati on nasal spray,suspe nsion INSTILL 2 SPRAYS IN EACH NOSTRIL EVERY DAY FOR 14 DAYS active Not Available Not Available No t Available naproxen 500 mg tablet TAKE ONE TABLET BY MOUTH TWICE A DAY NEEDED FOR PAIN FOR 7 DAYS active Not Available Not Available No t Available amoxicillin 875 mg-potassiu m clavulanate 125 mg tablet TAKE ONE TABLET BY MOUTH TWICE A DAY FOR 10 DAYS 11/29 completed Not Available Not Available Not Available oxycodone 5 mg tablet TAKE ONE TABLET BY MOUTH EVERY 8 HOURS NEEDED FOR PAIN 11/29 completed Not Available Not Available Not Available nitrofurant oin monohydrate /macrocryst als 100 mg capsule TAKE ONE CAPSULE BY MOUTH EVERY 12 HOURS WITH FOOD FOR 5 DAYS 11/29 completed Not Available Not Available Not Available Lyllana 0.05 mg/24 hr transdermal patch APPLY 1 PATCH TO SKIN TWICE WEEKLY active Not Available Not Available No t Available Vitals Date Recorded Body height Body mass index (BMI) Body weight Body temperature Heart rate Systolic blood pressure Diastolic blood pressure Provider Name and Address Organization Details Last Updated DateTime 5 160.02 cm 27.1 kg/m2 47249.3 5 g 98.1 [degF] 76 /min 119 mm[Hg] 66 mm[Hg] Iris Draper [place] - [facility], 5 08:15:13 Social History Question Answer Notes LastModified by Organizat ion Details LastModified Time Tobacco Smoking Status Current Every Day Smoker Iris milton [place] - [facility], 11/29/2024 08:21:31 What Is Your Level Of Alcohol Consumption? Occasional Rare Information not available 11/29/2024 How Many Years Have You Consumed Alcohol? 34 Information not available 11/29/2024 What Is Your Level Of Caffeine Consumption? Moderate Information not available 11/29/2024 In The 14 Days Before Symptom Onset, Have You Had Close Contact With A Laboratory-confir med COVID-19 While That Case Was Ill? No Information not available 11/29/2024 In The 14 Days Before Symptom Onset, Have You Had Close Contact With A Person Who Is Under Investigation For COVID-19 While That Person Was Ill? No Information not available 11/29/2024 Have You Been To An Area Known To Be High Risk For COVID-19? No Information not available 11/29/2024 Are You Currently Employed? Yes Information not available 11/29/2024 What Is The Highest Grade Or Level Of School You Have Completed Or The Highest Degree You Have Received? [id number] Information not available 11/29/2024 Who Is Your Employer? 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 Information not available 11/29/2024 Are There Any Guns Present In Your Home? Yes Information not available 11/29/2024 To Which Gender Do You Self-identify? Female Information not available 11/29/2024 What Was The Date Of Your Most Recent Tobacco Screening? 11/29/2024 Information not available 11/29/2024 What Is Your Relationship Status? Information not available 11/29/2024 Are You Sexually Active? No Information not available 11/29/2024 At What Age Did You Start Smoking Tobacco? 20 Information not available 11/29/2024 How Much Tobacco Do You Smoke? 0.5 PPD Information not available 11/29/2024 Do You Feel Stressed (tense, Restless, Nervous, Or Anxious, Or Unable To Sleep At Night)? [id number] Information not available 11/29/2024 Do You Use Any Illicit Or Recreational Drugs? No Information not available 11/29/2024 How Many Years Have You Smoked Tobacco? 30 Information not available 11/29/2024 Do You Or Have You Ever Used Any Other Forms Of Tobacco Or Nicotine? No Information not available 11/29/2024 How Many Days In The Past Year Have You Consumed 4 Or More Drinks? 0 Information no t available 11/29/2024 Sex: Female Functional Status Question Answer Note LastModified by Organization D etails LastModified Time What is your exercise level? Moderate Information not available 11/29/2024 Mental Status None recorded. Family History Relationship Description Onset Age of this Age Resolved Age Notes LastModified by Organization Details LastModified Time Father Heart disease [email or web address] Not available 2024 08:19:13 Mother Malignant tumor of lung [email or web address] Not available 2024 08:19:24 Sister Problem stones ... [email or web address] Not available 11/29/2024 08:19:44 Medical History Condition Response Anesthesia complications N High Blood Pressure N Candidate for MyRisk panel N Autoimmune Condition N Kidney or Bladder Problems Y Thyroid Problems N Depression N Lung Disease N GI Problems N Defects or Inherited Disease N Anemia N History of Ovarian Cancer N History of Breast Cancer N LOWELL exposure N BRCA testing in past N Osteopenia N Psychiatric Illness N Anxiety Disorder Y Diabetes N Arthritis N Headaches or Migraines N Infertility N Asthma N History of Cancer N Endometriosis N Hepatitis N Heart Disease N Hypertension N Osteoporosis N Gynecological History Statement/Question Response If Post Menopausal, Age at Menopause 37 Age at Menarche 13 Most Recent Mammogram Age at First Child 19 Most Recent Bone Density Obstetrics History GPAL:G 2 P 1 0 1 1 Type Value Full Term 1 Induced 1 Living 1 Total 2 Immunizations Vaccine Type Date Status Note Provider Nam e and Address Organization Details Recorded Time Influenza, split virus, quadrivalent, preservative 9 completed Iris Meczywor null, [place] - [facility], 11/29/2024 08:15:45 COVID-19, mRNA, LNP-S, PF, 30 mcg/0.3 mL dose 1 completed Iris Meczywor null, [place] - [facility], 11/29/2024 08:15:45 COVID-19, mRNA, LNP-S, PF, 30 mcg/0.3 mL dose 1 completed Iris Meczywor null, [place] - [facility], 11/29/2024 08:15:45 COVID-19, mRNA, LNP-S, PF, 30 mcg/0.3 mL dose 1 completed Iris Meczywor null, [place] - [facility], 11/29/2024 08:15:45 Tdap 1 completed Iris Meczywor null, [place] - [facility], 11/29/2024 08:15:45 Influenza, split virus, quadrivalent, PF 0 completed Iris Meczywor null, [place] [facility], 11/29/2024 08:15:45 Influenza, split virus, quadrivalent, PF 1 completed Iris Meczywor null, [place] - [facility], 11/29/2024 08:15:45 Past Encounters Encounter ID Performer Location Encounter Start Date Encounter Closed Date Diagnosis/Indication Diagnosis SNOMED-CT Code Diagnosis ICD10 Code Diagnosis Note [id number] MD FLORENCIA Woodall MD [address] [facility] [address] [place] [address] 11/29/2024 08:08:24 11/29/2024 15:38:53 Specialized medical examination 55625351 Z01.419 Screening for malignant neoplasm of rectum 669900456 Z12.12 Screening mammography 24 410794 Z12.31 Menopausal syndrome 1237 10970 N95.1 Health Concerns Section Related Observation LastModified by Organization Detai ls LastModified Time None Recorded Concern Status LastModified by Organization Details LastModified Time None Recorded Payers Encounter Date Sequence Insurance Name Policy Number Policy Cao Covered Member ID Cao Member ID Guarantor Name 11/29/2024 1 [facility] [id number] Maria D Gusman [id number] Maria D Gusman Notes Date Note Type Note Provider Name and Address Organization Details Recorded Time 11/29/2024 text/html She is here as a new patient for annual exam. She had a hysterectomy in 2008 and then a BSO with lysis of adhesions on 2009. She has been on the patch ever since. She has no reason to be on twice a week patch, she would prefer weekly as she forgets to change it. She has been off her patch for 2 weeks as she ran out, and she is having hot flashes and night sweats and would like to restart. Florencia Vargas MD [address] [place] [address],[address], [place], [address], [place] - [facility], 11/29/2024 09:33:32 OBGyn Episode No OBEpisode recorded.
== END 2024-12-03 15:24 | disposition home or self-care (01) ==
LOC: HO.US 15:23
PROVIDERS: PCP Registered Nurse; Visit Provider Urology
DX: N20.0 Calculus of kidney (principal)
CPT/HCPCS: 76775

== ENCOUNTER → 2024-12-03 15:24 | Outpatient (BNV) | payer BC, SELFPAY | PROVIDERS: PCP Registered Nurse; Visit Provider Radiology Diagnostic Radiology | DX: N20.0 Calculus of kidney (principal) | CPT/HCPCS: 76775 ==

== ENCOUNTER 2024-12-16 15:48 | Outpatient (AMB) | payer BC, SELFPAY ==
--- NOTE | 2024-12-16 15:49 | A.OFFVIS_ITS ---
Intake Visit Reasons: Three-month follow-up renal ultrasound Intake Note: Patient presents today for follow up on: kidney stone and ultrasound results * Imaging Completed: 12/03/24 Urology Medication:none Antibiotic Allergy:none Blood Thinner:none Force Variation Equipment Tender Required: No Allergies erythromycin base Allergy (Verified 12/16/24 16:28) Chest Pain Medication List - Last Reconciled 12/16/24 by VISHNU Vázquez estradiol (Lyllana) 1 patch topical 2XW fluticasone propionate 50 mcg/actuation intranasal pyridoxine (vitamin B6) 50 mg PO DAILY 90 days HPI Comments Details: Maria D is a pleasant 54 year old female patient of Dr.Hayfron- [place]. She has a past medical history of seasonal allergies. She presents to the office today for follow-up of her nephrolithiasis. In discussion with the patient today she reports noting ongoing left-sided flank pain. Recent renal imaging results reviewed with the patient today. 12/18 bilateral kidney with no hydronephrosis. Right kidney with an 8 mm nonobstructing calculus at the lower pole. Otherwise unremarkable renal ultrasound. We discussed at length further intervention to include lithotripsy verses surveillance monitoring risks and benefits of these interventions were discussed. She otherwise denies urinary urgency, urinary frequency, incontinence, nocturia, hematuria, dysuria, foul smelling urine, changes to urinary stream, fever, and or chills. She is happy with her current voiding parameters. Of note patient underwent surgical procedure with Dr. Mohamud cystoscopy, left retrograde, left dilatation of ureteric orifice under fluoroscopy, left ureteroscopy, laser lithotripsy of multiple stones, stone basketing, stones greater than 1.5 cm in length, left stent placement 09/16. Followed by an in office cystoscopy with left ureteral stent removal 09/16. Stone analysis noted mixed calcium stones. We discussed recommendation to decrease salt and increase water intake. She reports compliance with vitamin B6 as prescribed. She discusses having significantly decreased her consumption of soda. She otherwise offers no other issues or concerns at this time. Previous office note: Nephrolithiasis Prior left renal stones 09/12/2024 CT imaging shows proximal ureteric stone and cluster within left kidney Stone composition - 09/16 Calcium Oxalate Dihydrate (Weddellite) 15% Calcium Oxalate Monohydrate (Whewellite) 70% Carbonate Apatite (Dahllite) 15% PFSH Medical History Seasonal allergies Surgical History (Updated 08/27/24 @ 14:09 by Ananya Vick RN) H/O: hysterectomy Family History (Updated 08/27/24 @ 14:10 by Ananya Vick RN) Other Hx of breast reduction, elective Social History Are you a primary restorative care technician to a significant other at home: No Do you presently have visiting nurse or other home services: No Patient Tobacco Use Status: Current everyday Tobacco user Tobacco use type: Cigarette Review of Systems Const All systems reviewed & are unremarkable except as noted in HPI and below Physical Exam Const General: cooperative, healthy appearing, comfortable, no acute distress, well developed, alert and awake Orientation/consciousness: patient oriented x3 Limitations: no limitations HEENT Head: Yes normal to inspection, Yes normocephalic and Yes atraumatic Ears: hearing grossly normal bilaterally Eyes General: appearance normal, both eyes and all related structures Neck Neck: Yes normal visual inspection and Yes trachea midline Chest Chest palpation & inspection: normal inspection of the chest Resp Effort & Inspection: normal respiratory effort and able to speak in complete sen tences Cardio Rate: regular rate GI Inspection: Yes normal to inspection General: Yes no CVA tenderness Back/Spine/Pelvis Back: no CVA tenderness Skin General skin exam: no rashes or lesions noted Neuro General: patient oriented x3 Extrem General: Yes normal to inspection Psych Appearance: grossly normal and well kempt Mental Status: mental status grossly normal Speech and movement: Normal speech and movement present and Clear speech present Affect: normal affect Attitude: cooperative Thought process: Normal thought process present Thought content: Normal thought content present Insight: Fair insight present (Psych) Judgement: Fair judgement present (Psych) Results AMB Urinalysis, Automated UA Leukoctes 0 Bisi/uL Last Edit by Valentine Sommers on 12/16/24 16:30 UA Nitrite Negative Last Edit by Valentine Sommers on 12/16/24 16:30 UA Urobilinogen 0.2 mg/dL Last Edit by Valentine Sommers on 12/16/24 16:30 UA Protein 0 mg/dL Last Edit by Valentine Sommers on 12/16/24 16:30 UA pH 6.0 Last Edit by Valentine Sommers on 12/16/24 16:30 UA Blood 80 Serge/uL Last Edit by Valentine Sommers on 12/16/24 16:30 UA Specific [place] 1.010 Last Edit by Valentine Sommers on 12/16/24 16:30 UA Ketone Negative Last Edit by Valentine Sommers on 12/16/24 16:30 UA Bilirubin 0 mg/dL Last Edit by Valentine Sommers on 12/16/24 16:30 UA Glucose 0 mg/dL Last Edit by Valentine Sommers on 12/16/24 16:30 Results Reviewed Results Reviewed: Date of Service: 12/03/24 Procedure(s): US renal BI FINDINGS: Right kidney: The right kidney measures 12.1 x 3.7 x 6.6 cm. Renal parenchymal echotexture and thickness are normal. There are no masses. There is no hydronephrosis or renal calculi. Left Kidney: The left kidney measures 10.5 x 5.8 x 5.2 cm. Renal parenchymal echotexture and thickness are normal. There are no masses. There is an 8 mm nonobstructing calculus at the lower pole. There is no hydronephrosis. IMPRESSION: 8 mm nonobstructing left renal calculus. Otherwise unremarkable renal ultrasound. Assessment & Plan Assessment & Plan (1) Kidney stone: Code(s): N20.0 - Calculus of kidney Category: Medical (2) Flank pain: Code(s): R10.9 - Unspecified abdominal pain Category: Medical Plan: Plan Extracorporeal Shock Wave Lithotripsy We discussed the nature of the decision and reasonable alternatives for performing the above surgery. Interventions include chemical dissolution, ESWL, ureteroscopy with laser lithotripsy and stent placement, PCNL. ? Options such as medical therapy were discussed. The relative uncertainties and benefits related to each alternate procedure were adequately discussed. General surgical risks including, but not limited to, pain, bleeding, infection, myocardial infarction, pulmonary embolus, deep vein thrombosis and cerebrovascular accident which may result in further hospitalization were discussed.? Full disclosure of the procedure as well as all major risks, benefits and complications were discussed including but not limited to risks of bleeding, injury to the kidney with hematoma or armaan-hematoma, failure to fragments stone, potential for ureteric obstruction from stone passage and need for secondary procedures.? There is a small long-term risk of hypertension and a question danae of diabetes.? Success rate of fragmentation and passage is approximately 70- 75%.? This is compared to the risks and benefits for ureteroscopy which has a higher success rate but is a more invasive procedure. The success rate of the procedure was discussed. Success of the procedure in the short-term does not necessarily guarantee that long-term success will be maintained. Suitable follow up will need to be maintained. The patient showed understanding of the discussion as well as the typical recovery time, and the outpatient nature of this procedure. Opportunity was given for questions. Repeat-back protocol used to confirm understanding. They wish to proceed with left ESWL Plan In office urinalysis results reviewed with the patient today; as noted above; will send for urine culture. Recent renal imaging results with the patient today; as noted above. We discussed at length potential causes of nephrolithiasis. Continue vitamin B6. We discussed further intervention to include lithotripsy versus surveillance monitoring; risks and benefits of these interventions were discussed. All questions were answered. Will schedule for left-sided ESWL Follow-up per doctor's orders; or sooner with any issues, questions and or concerns. Orders: Orders Urine Culture Today Z13.9 - Encounter for screening, unspecified AMB Urinalysis Automated Today Z13.9 - Encounter for screening, unspecified Patient Instructions: The patient had an opportunity to ask questions regarding the treatment plan. All questions were answered. Physical exam, labs, and imaging were discussed and reviewed in detail. As well as risks, benefits, and discussion of treatment choices. No major barriers to understanding were identified. The patient expressed understanding and agreement with the above treatment plan. The patient was made aware they should contact our office by phone for worsening of their current condition, the appearance of new symptoms, or with any questions or concerns. Compliance is encouraged with any medications and follow up testing that is ordered. It is a privilege to be allowed the opportunity to participate in? your urological care.? Again, if you have any questions or concerns If you have any questions or concerns please do not hesitate to contact me. The office is [phone]. This note is constructed using voice recognition software. While every effort has been made to ensure accuracy journeyman apprentice electricians errors may have been included. Yours sincerely, VISHNU Vázquez Coding Level of Care Code Est Pt Level 4 (59037) Diagnoses Kidney stone N20.0 Flank pain R10.9
--- OUTSIDE RECORDS SUMMARY | 2024-12-16 18:41 | XMS_ITS | Continuity of Care Document ---
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 Plan of Treatment Reminders Order Date Submit Date Provider Last Modified By Organization Details Last Modified Time Details Appointments SPECIAL PROCEDURE 2024 10:00A Nishi Vargas MD Not available Not available Not available ANNUAL EXAM 2025 08:00A M Florencia Vargas MD Not available Not available Not available Lab cytology report, thin prep, smear or scraping, cervical or vaginal 2024 025 [place] [facility], [address], [place], [address], 12/04/2024 20:19:49 hemoglobi n, gastroint estinal, stool 2024 025 [email or web address] 1 In-Office Order, Internal Use Only DO Not Attach Compendium DO Not Attach Compendium, Do Not Delete/merge, [id number] 11/29/2024 08:47:16 Referral None recorded. Procedures None recorded. Surgeries None recorded. Imaging MAMMO, screening , digital, bilateral - Breast Aspiratio n and/or Biopsy if needed 2024 025 [facility], [address], [address], [place], [address], 11/29/2024 16:17:40 Medication Orders estradiol 0.05 mg/24 hr weekly transderm al patch 2024 025 [place] [id number], [address] [place], [address], 11/29/2024 08:47:18 Patient TargetsNo targets recorded. Patient Instructions Encounter Date Encounter Id Patient Instructions Last Modified By Organization Details Last Modified Time 11/29/2024 [id number] learning about healthy weight [email or web address] Not available 11/29/2024 08:47:16 She is here [...] Note LastModifiedBy Organization Detail LastModifiedTime 11/29/1911/29/2024 hemog lobpartha , parul johnstone jaspreet l, stool Occult Blood negati ve Not Available In-Office Order Internal Use Only DO Not Attach Compendium DO Not Attach Compendium, Do Not Delete/merge, [id number] 11/29/2024 08:28:20 11/29/1911/29/2024 MAMMO , scree aguila, digit al, bilat eral No observ ation record ed. [facility] [place], [address], 11/30/2024 08:00:36 Result Notes None recorded. Problems Name Problem SNOMED Code Status Onset Date Resolution Date Notes Provider Name and Address Organization Details Recorded Time Menopausal syndrome 506542234 Active 025 Florencia Vargas MD [address], [place], [address], [place] [facility], 08:45:38 Problem Notes None recorded. Procedures Surgical History Date Name Laterality Status Provider Name and Address Organization Details Recorded Time 08/24/20 24 kidney stone analysis completed Iris Draper [place] - [facility], 11/29/2024 08:23:16 07/25/20 10 laparoscopic bilateral salpingo-oophore ctomy completed Florencia Vargas MD [address], [place], [address], [place] [facility], 11/29/2024 08:07:25 10/24/20 09 hysterectomy completed Florencia Vargas MD [address], [place], [address], [place] [facility], 11/29/2024 08:08:46 11/24/19 09 Breast Implants completed Iris Draper [place] - [facility], 11/29/2024 08:24:25 Imaging Results None recorded. Procedure Notes None recorded. Medical Equipment None Reported. Allergies Allergen ID Allergen Name Allergen Category Reaction Reaction Severity Criticality Documentation Date Start Date Code Code System Note Provider Name and Address Organization Details Recorded Time 18242 Bactrim medicatio n rash Not available Not available 11/29/2024 50197 9 RxNorm Iris Bonny milton [place] - [facility], 08:52:12 39246 erythromy willam medicatio n rash Not available Not available 11/29/2024 4053 RxNorm Iris Bonny milton [place] [facility], 5 08:52:33 Medications Name Sig Start Date Stop [...] estradiol 0.05 mg/24 hr weekly transdermal patch APPLY ONE PATCH TO SKIN EVERY WEEK active Not Available Not Available No t Available ciprofloxac in 250 mg tablet TAKE 1 [...] Updated DateTime 5 160.02 cm 27.1 kg/m2 03606.3 5 g 98.1 [degF] 76 /min 119 [...] Or The Highest Degree You Have Received? [id number] Information not available 11/29/2024 Who Is Your [...] Anxious, Or Unable To Sleep At Night)? [id number] Information not available 11/29/2024 Do You Use [...] Iris Meczywor null, [place] - [facility], 11/29/2024 08:15:45 COVID-19, mRNA, LNP-S, PF, 30 mcg/0.3 mL dose 1 completed Iris Meczywor null, [place] [facility], 11/29/2024 08:15:45 COVID-19, mRNA, LNP-S, PF, 30 mcg/0.3 mL dose 1 completed Iris Meczywor null, [place] [facility], 11/29/2024 08:15:45 COVID-19, mRNA, LNP-S, PF, 30 mcg/0.3 mL dose 1 completed Iris Meczywor null, [place] [facility], 11/29/2024 08:15:45 Tdap 1 completed Iris Meczywor null, [place] [facility], 11/29/2024 08:15:45 Influenza, split virus, quadrivalent, PF 0 completed Iris Meczywor null, [place] [facility], 11/29/2024 08:15:45 Influenza, split virus, quadrivalent, PF 1 completed Iris Meczywor null, [place] [facility], 11/29/2024 08:15:45 Past Encounters Encounter ID Performer Location Encounter Start Date Encounter Closed Date Diagnosis/Indication Diagnosis SNOMED-CT Code Diagnosis ICD10 Code Diagnosis Note [id number] MD FLORENCIA Woodall MD [address] [facility], [address] [place] [address] 11/29/2024 08:08:24 11/29/2024 15:38:53 Specialized medical examination 73009433 Z01.419 Screening for malignant neoplasm of rectum 292034810 Z12.12 Screening mammography 24 583360 Z12.31 Menopausal syndrome 1237 73910 N95.1 Health Concerns Section Related Observation LastModified by Organization Detai ls LastModified Time None Recorded Concern Status LastModified by Organization Details LastModified Time None Recorded Payers Encounter Date Sequence Insurance Name Policy Number Policy Cao Covered Member ID Cao Member ID Guarantor Name 11/29/2024 1 LISA-TRISH: O [facility] [id number] Maria D Gusman [id number] Maria D Gusman Notes Date Note [...] would like to restart. Florencia Vargas MD [address] [place] [address],[address], [facility] [address], [place] [facility], 11/29/2024 09:33:32 OBGyn Episode No OBEpisode recorded.
== END 2024-12-16 16:25 | disposition home or self-care (01) ==
PROVIDERS: Visit Provider Nurse Practitioner Family
DX: N20.0 Calculus of kidney (principal); R10.9 Unspecified abdominal pain; Z13.9 Encounter for screening, unspecified
CPT/HCPCS: 99214

== ENCOUNTER 2024-12-16 15:48 | Outpatient (REF) | payer BC, SELFPAY ==
--- OUTSIDE RECORDS SUMMARY | 2024-12-16 19:00 | XMS_ITS | Data Portability ---
Author Organization [place] - [facility],, FLORENCIA VARGAS MD Address [address] [address] Care Team Providers Care Vp Respiratory Name Role Phone ТАТЬЯНАJUSTUS MARGOT Primary Care Provide r Assessment No [...] or scraping, cervical or vaginal 2024 025 KILLEEN [facility], [address], [place], [address], 12/04/2024 20:19:49 hemoglobi n, gastroint estinal, stool 2024 025 smacmillan 1 In-Office Order, Internal Use Only DO Not Attach Compendium DO Not Attach Compendium, Do Not Delete/merge, [id number] 11/29/2024 08:47:16 Referral None recorded. Procedures None recorded. Surgeries None recorded. Imaging MAMMO, screening , digital, bilateral - Breast Aspiratio n and/or Biopsy if needed 2024 025 [facility], [address], [address], [place], [address], 11/29/2024 16:17:40 Medication Orders estradiol 0.05 mg/24 hr weekly transderm al patch 2024 025 KILLEEN [facility], [address] [place], [address], 11/29/2024 08:47:18 Patient TargetsNo targets recorded. Patient Instructions Encounter Date Encounter Id Patient Instructions Last Modified By Organization Details Last Modified Time 11/29/2024 [id number] learning about healthy weight [email or web address] Not available [...] Abnormal Flag Note LastModifiedBy Organization Detail LastModifiedTime 11/29/1912/04/2024 IGP, RFX APTIM A HPV ASCU diagnosis: Commen t abnormal EPITH ELIAL CELL ABNOR MALIT Y. LOW GRADE SQUAM OUS INTRA EPITH ELIAL LESIO N (LSIL ). Not Available [address], [address], 12/04/2024 20:19:49 11/29/19 25 12/04/2024 IGP, RFX APTIM A HPV ASCU specimen adequacy: Deja winkler Satis facto ry for evalu ation . Not Available [address], [address], 12/04/2024 20:19:49 11/29/19 25 12/04/2024 IGP, RFX APTIM A HPV ASCU clinician provided ICD10: Deja winkler Z01.4 19 Not Available [address], [address], 12/04/2024 20:19:49 11/29/19 25 12/04/2024 IGP, RFX APTIM A HPV ASCU performed by: Deja Skelton , Cytot echmarion winkler (ASCP ) Not Available [address], [address], 12/04/2024 20:19:49 11/29/19 25 12/04/2024 IGP, RFX APTIM A HPV ASCU electronical ly signed by: Deja Heredia MD, Patho logis t Not Available [address], [address], 12/04/2024 20:19:49 11/29/19 25 12/04/2024 IGP, RFX APTIM A HPV ASCU . . Not Available [address], [address], 12/04/2024 20:19:49 11/29/19 25 12/04/2024 IGP, RFX APTIM A HPV ASCU pathologist provided ICD10: Deja winkler R87.6 12 Not Available [address], [address], 12/04/2024 20:19:49 11/29/19 25 12/04/2024 IGP, RFX APTIM A HPV ASCU note: Commen t The Pap smear is a scree aguila test desig clayton to aid in the detec tion of josefina ligna nt and malig nant condi tions of the uteri ne cervi x. It is not a diagn ostic proce dure and shoul d not be used as the sole means of detec ting cervi eneida cance r. Both false -posi tive and false -nega tive repor ts do occur . Not Available [address], [address], 12/04/2024 20:19:49 11/29/19 25 12/04/2024 IGP, RFX APTIM A HPV ASCU test methodology: Commen t This liqui d based ThinP rep(R ) pap test was scree clayton with the use of an image guide kaden figueredo. Not Available [address], [address], 12/04/2024 20:19:49 11/29/19 25 12/04/2024 IGP, RFX APTIM A HPV ASCU . Commen t The HPV DNA refle x crite thi were not met with this speci men resul t there fore, no HPV testi ng was perfo rmed. Not Available [address], [address], 12/04/2024 20:19:49 11/29/19 25 11/29/2024 hemog lobin , gastr ointe jaspreet l, stool Occult Blood negati ve Not Available In-Office Order Internal Use Only DO Not Attach Compendium DO Not Attach Compendium, Do Not Delete/merge, [id number] 11/29/2024 08:28:20 11/29/19 25 11/29/2024 MAMMO , scree aguila, digit al, bilat eral No observ ation record ed. [facility] [address] [place], [address], 11/30/2024 08:00:36 Result Notes None recorded. Problems Name Problem SNOMED Code Status Onset Date Resolution Date Notes Provider Name and Address Organization Details Recorded Time Menopausal syndrome 265051017 Active 025 Florencia Vargas MD [address], [place], [address], [place] [facility], 08:45:38 Problem Notes None recorded. Procedures Surgical History Date Name Laterality Status Provider Name and Address Organization Details Recorded Time 08/24/20 24 kidney stone analysis completed Iris Stren in [facility], 11/29/2024 08:23:16 07/25/20 10 laparoscopic bilateral salpingo-oophore ctomy completed Florencia Vargas MD [address], [place], [address], [place] [facility], 11/29/2024 08:07:25 10/24/20 09 hysterectomy completed Florencia Vargas MD [address] [facility],[address], [place], [address], [place] [facility], 11/29/2024 08:08:46 11/24/19 09 Breast Implants completed Iris Stern in [facility], 11/29/2024 08:24:25 Imaging Results Imaging Date Name Status LastModified by Organiz ation Details LastModified Time 11/29/2024 MAMMO, screening, digital, bilateral completed [facility] [address], [place], [address], 11/30/2024 08:00:36 Procedure Notes None recorded. Medical Equipment None Reported. Allergies Allergen ID Allergen Name Allergen Category Reaction Reaction Severity Criticality Documentation Date Start Date Code Code System Note Provider Name and Address Organization Details Recorded Time 35744 Bactrim medicatio n rash Not available Not available 11/29/2024 22592 9 RxNorm [place] in [facility], 08:52:12 [address]328 erythromy willam medicatio n rash Not available Not available 11/29/2024 4053 RxNorm Iris Meczywor null, [place] [facility], 08:52:33 Medications Name Sig Start Date Stop [...] Updated DateTime 5 160.02 cm 27.1 kg/m2 68663.3 5 g 98.1 [degF] 76 /min 119 [...] Or The Highest Degree You Have Received? [id number] Information not available 11/29/2024 Who Is Your [...] Anxious, Or Unable To Sleep At Night)? [id number] Information not available 11/29/2024 Do You Use [...] for MyRisk panel N Autoimmune Condition N Thyroid Problems N Kidney or Bladder Problems Y GI Problems N Lung Disease N Depression N Defects or Inherited Disease N History of Ovarian Cancer N Anemia N History of Breast Cancer N LOWELL [...] Iris Meczywor null, [place] [facility], 11/29/2024 08:15:45 COVID-19, mRNA, LNP-S, PF, 30 mcg/0.3 mL dose 1 completed Iris Meczywor null, [place] [facility], 11/29/2024 08:15:45 COVID-19, mRNA, LNP-S, PF, 30 mcg/0.3 mL dose 1 completed Iris Meczywor null, [place] [facility], 11/29/2024 08:15:45 COVID-19, mRNA, LNP-S, PF, 30 mcg/0.3 mL dose 1 completed Iris Meczywor null, [place] [facility], 11/29/2024 08:15:45 Tdap 1 completed Iris Meczywor null, [place] [facility], 11/29/2024 08:15:45 Influenza, split virus, quadrivalent, PF 0 completed Iris Meczywor null, [place] [facility], 11/29/2024 08:15:45 Influenza, split virus, quadrivalent, PF 1 completed Iris Meczywor null, [place] [facility], 11/29/2024 08:15:45 Past Encounters Encounter ID Performer Location Encounter Start Date Encounter Closed Date Diagnosis/Indication Diagnosis SNOMED-CT Code Diagnosis ICD10 Code Diagnosis Note [id number] MD FLORENCIA Woodall MD [address] [facility] [place] [address] [place] [address] 11/29/2024 08:08:24 11/29/2024 15:38:53 Specialized medical examination 29464200 Z01.419 Screening for malignant neoplasm of rectum 456781913 Z12.12 Screening mammography 24 812862 Z12.31 Menopausal syndrome 1237 67079 N95.1 Health Concerns Section Related Observation LastModified by Organization Detai ls LastModified Time None Recorded Concern Status LastModified by Organization Details LastModified Time None Recorded Advance Directives Directive None Recorded Payers Encounter Date Sequence Insurance Name Policy Number Policy Cao Covered Member ID Cao Member ID Guarantor Name 11/29/2024 1 [facility] [place] [id number] Maria D Gusman [id number] Maria D Gusman Notes Date Note [...] would like to restart. Florencia Vargas MD [address] [place] [address],[address], [place] [address], [place] [facility], 11/29/2024 09:33:32 OBGyn Episode No OBEpisode recorded.
== END 2024-12-16 15:49 | disposition home or self-care (01) ==
LOC: HO.LNP 15:48
PROVIDERS: Visit Provider Nurse Practitioner Family
DX: Z13.9 Encounter for screening, unspecified (principal); N20.0 Calculus of kidney; R10.9 Unspecified abdominal pain
CPT/HCPCS: 81003; 87086

== ENCOUNTER 2025-01-12 06:30 | Day surgery (SDC) | payer BC, SELFPAY ==
[2025-01-07 09:06] VITALS: BMI 27.5
--- NOTE | ~2025-01-12 | XR_ITS ---
CLINICAL HISTORY: left kidney stone 1 view abdomen Comparison: None Findings: No pneumoperitoneum or pneumatosis. Multiple pelvic phleboliths. No discrete stones overlie the kidneys or expected course of the ureters. No acute fractures. IMPRESSION: No discrete renal stone identified. Numerous pelvic phleboliths. If there is concern for renal colic or obstructive uropathy consider CT. This document has been electronically signed by: Eugenie Hubbard MD on 01/12/2025 07:31:07
[2025-01-12 06:59] VITALS: BP 109/57; PULSE 69; RESP 15; TEMP 36.5; O2SAT 95
[2025-01-12] MEDS: Lactated Ringers 1,000 ML 50 ML IVCONT (07:08)
--- NOTE | 2025-01-12 07:24 | P.HPSUR_ITS ---
Pre-Procedural Eval Section A - 24 Hr Update-Section A only Date of Service: 01/12/25 The patient is an INPATIENT: No Changes since office visit: No Cold of Flu in the past 2 weeks, No New Medical Problems, No Changes in Medication and No Patient answered all questions The patient has been examined within 24 hours of the surgical procedure. The History & Physical has been completed within 30 days and I have reviewed it.: No Section B - Complete if H&P > 30 days Chief Complaint: Calculus of kidney Details of Present Illness: 8mm left stone Relevant Social History: Tobacco Use Present Medications: see Short Stay Collaborative assessment Medical History: No relevant PMH History of Previous Operations: Relevant previous surgery/procedure and date(s) Allergies: Allergies Allergy/AdvReac Type Severity Reaction Status Date / Time erythromycin base Allergy Chest Pain Verified 01/12/25 06:47 Review of Systems Sugical H&P ROS: Negative: Constitution, Cardiovascular, Respiratory, Neur ological, Psychiatric, Hem-Onc, Allergic/Immunologic, Gastrointestinal, Genitourinary, Musculoskeletal, Integumentary, Endocrine and Eyes/Ears/Nose/Throat Exam Surgical H&P Exam: Normal: HEENT, Normal: Heart, Normal: Lungs, Normal: Extremities, Normal: Abdomen, Normal: Skin and Normal: Neurological Plan Diagnosis/Plan: Unchanged (left eswl) I have reviewed the history and physical and performed a pertinent physical examination on my patient. No changes have occurred unless specified. Time Spent With Patient Time: Total time managing care of this patient today ____ minutes.
[2025-01-12] MEDS: Scopolamine 1.5 MG PATCH.TD.3 EAR-BEHIND (07:28)
[2025-01-12] MEDS: Acetaminophen 1,000 MG/100 ML PIGGYBACK 400 MG IV (07:30)
--- NOTE | 2025-01-12 08:18 | HO.ANESPROP2 ---
HPI - Anesthesia Eval Consult details Narrative: for left ESWL PMFSH Active Problems Active Problems: All Active Problems Flank pain (Acute) Kidney stone (Chronic) Past Medical History Medical History (Updated 01/12/25 @ 06:48 by Yeimi ePdraza RN) Drug-induced nausea and vomiting Seasonal allergies Family History Family History (Updated 08/27/24 @ 14:10 by Ananya Vick RN) Other Hx of breast reduction, elective Family history of problems with anesthesia: No Surgical History Surgical History (Updated 01/12/25 @ 06:53 by Yeimi Pedraza RN) Hx of cystoscopy Hx of breast implants, bilateral Hx of bilateral breast reduction surgery H/O: hysterectomy History of Problems with Anesthesia: No Social History Social History Are you a primary career discovery teacher to a significant other at home: No Do you presently have visiting nurse or other home services: No Patient Tobacco Use Status: Current everyday Tobacco user Tobacco use type: Cigarette Cigarettes Per Day: 10 Use of substances other than those prescribed or required for medical reasons: No Are you DNR?: No Advance Directives: No Advance Directives Information Provided: Yes Meds Allergies Allergy/AdvReac Type Severity Reaction Status Date / Time erythromycin base Allergy Chest Pain Verified 01/12/25 06:47 Active Medications: Current Medications Lactated Ringer's (Lr) 1,000 mls @ 50 mls/hr IVCONT .Q20H [facility] Last Admin: 01/12/25 07:08 Dose: 50 mls/hr Lactated Ringer's (Lr) 1,000 mls @ 999 mls/hr IV .Q1H1M [facility] Stop: 01/12/25 08:30 Home Medications ?Medication ?Instructions ?Recorded ?Confirmed ?Last Taken ?Type estradiol 0.05 mg/24 hr semiweekly 1 patch topical 2XW 08/27/24 08/27/24 Unknown History transdermal patch (Lyllana) fluticasone propionate 50 intranasal 08/27/24 08/27/24 Unknown History mcg/actuation nasal spray,suspension psyllium husk 0.4 gram capsule 0.4 g PO DAILY 01/12/25 01/12/25 Unknown History (Metamucil) Exam Height,Weight and Vital Signs: Height 5 ft 3 in Weight 70.3 kg Last Vital Signs Temp 97.7 F 01/12/25 06:59 Pulse 69 01/12/25 06:59 Resp 15 01/12/25 06:59 BP 109/57 L 01/12/25 06:59 Pulse Ox 95 01/12/25 06:59 O2 Del Method Room Air 01/12/25 06:59 Airway Mallampati Class: I TM Dist: >3cm Neck ROM: Full Loose/Missing/Broken Teeth: No Heart: ok Lungs: ok Assessment and Plan Assessment Anesthesia Assessment: Anesthesia Plan Discussed and Chart Reviewed Final Anesthetic Review Family History of Problems with Anesthesia: No History of Problems with Anesthesia: No NPO: Yes ASA Class: II Final Preanesthetic Review: No Changes in Pt Med Stat, Meds/Allgs Chart Reviewed, Consent Obtained/Reviewed and Anes Risks/Benef Reviewed Patient Risk: Low Procedure Risk: Low Anesthetic Plan Anesthetic Plan: Agree w/ Assess. and Plan and TIVA Disposition: Standard PACU
--- NOTE | 2025-01-12 08:34 | P.OP_ITS ---
Operative Note Operative Note Date of Service: 01/12/25 Narrative: PreOperative Diagnosis: left Renal stones Post Operative Diagnosis: left Renal stones Procedure: left ESWL - at [facility] Surgeon: Dr Edwar Mohamud Anesthesia: mac/sedation Indications for procedure: The patient understands ESWL may be a staged procedure and subsequent interve ntion may be required based on imaging after ESWL. Quoted stone clearance rates for a solitary procedure are in the 70-80% range based primarily on stone location. They also understand there is a risk of bleeding to the kidney, infection, damage to adjacent organs, and stone migration following the procedure. - Imaging - left 8mm renal stone Procedure optimization has been performed with IV acetaminophen given in the holding area and 1 L of lactated Ringer's to be given in order to optimize the fluid-stone interface. 20 mg of IV Lasix will be given in the last 5 minutes of the procedure to optimize stone clearance. Procedure: After informed consent was verified the patient was brought to the operating room and placed in a supine position. Anesthesia was performed per protocol. Safety pause time-out was performed. Imaging was displayed in the room and laterality confirmed. ESWL was performed. The 1st 500 shocks were performed at 60 hertz. These were performed with increasing power. Once maximum power was reached the rate was increased to 180 hertz. A total of 2500 shocks were given. Targeted imaging with ultrasound/fluoroscopy showed stone smudging suggestive of disintegration. The patient tolerated the procedure well and was transferred to the recovery area upon completion. Post procedure imaging will be organized. There was no evidence for flank discoloration.
[2025-01-12 08:56] VITALS: BP 125/74; PULSE 70; RESP 16; TEMP 36.6; O2SAT 91
[2025-01-12 09:01] VITALS: BP 109/43; PULSE 56; RESP 16; O2SAT 92
[2025-01-12 09:06] VITALS: BP 110/63; PULSE 54; RESP 16; O2SAT 92
[2025-01-12 09:11] VITALS: BP 110/68; PULSE 58; RESP 16; O2SAT 92
[2025-01-12] MEDS: Ketorolac Tromethamine 15 MG/ML VIAL IVPUSH (09:20)
[2025-01-12 09:26] VITALS: BP 124/73; PULSE 60; RESP 16; TEMP 36.3; O2SAT 95
== END 2025-01-12 09:48 | disposition home or self-care (01) ==
PROVIDERS: PCP Registered Nurse; Visit Provider Urology
PROC: (CPT 50590; principal; 2025-01-12 08:20)
DX: N20.0 Calculus of kidney (principal); R10.9 Unspecified abdominal pain; Z87.442 Personal history of urinary calculi; J30.2 Other seasonal allergic rhinitis; Z79.51 Long term (current) use of inhaled steroids; Z79.899 Other long term (current) drug therapy; Z88.1 Allergy status to other antibiotic agents; F17.210 Nicotine dependence, cigarettes, uncomplicated; Z98.890 Other specified postprocedural states
CPT/HCPCS: 50590; 74018; J0131; J1885; J2003; J2250; J2405; J2704; J3010

== ENCOUNTER → 2025-01-12 06:30 | Outpatient (BNV) | payer BC, SELFPAY | PROVIDERS: PCP Registered Nurse; Visit Provider Urology | DX: N20.0 Calculus of kidney (principal) | CPT/HCPCS: 50590 ==

== ENCOUNTER → 2025-01-12 06:33 | Outpatient (BNV) | payer BC, SELFPAY | PROVIDERS: PCP Registered Nurse; Visit Provider Radiology Diagnostic Radiology | DX: I86.2 Pelvic varices (principal) | CPT/HCPCS: 74018 ==

== ENCOUNTER 2025-02-01 15:01 | Outpatient (REF) | payer BC, SELFPAY ==
--- NOTE | ~2025-02-01 | US_ITS ---
EXAMINATION: US KIDNEY BILATERAL HISTORY: N20.0 - Calculus of kidney TECHNIQUE: Real-time grayscale ultrasound imaging of the kidneys was performed and images were reviewed. COMPARISON: Comparison is made with the prior examination dated 12/03/2024. FINDINGS: Right kidney: The right kidney measures 12.0 x 3.8 x 5.2 cm. There is mild renal cortical thinning with increased echotexture of the calyces. There are no masses. There is no hydronephrosis or renal calculi. Left Kidney: The left kidney measures 10.9 x 5.8 x 6.0 cm. There is mild renal cortical thinning and increased echotexture of the calyces. There are no masses. There is a 3 mm nonobstructing calculus at the lower pole. There is no hydronephrosis. US/US renal BI IMPRESSION: Mild renal cortical thinning and increased echotexture of the calyces. 3 mm nonobstructing calculus at the lower pole of the left kidney. Electronically signed by: Mil Barreto MD 02/02/2025 07:07 AM EDT
--- OUTSIDE RECORDS SUMMARY | 2025-02-01 18:20 | XMS_ITS | Data Portability ---
Author Organization [place] - [facility],, FLORENCIA VARGAS MD Address [address] [facility] [address] [place] [address] Care Team Providers Care Back Line Cook Name Role Phone ARACELI MARGOT Primary Care Provide r Assessment No assessment recorded. Plan of Treatment Reminders Order Date Submit Date Provider Last Modified By Organization Details Last Modified Time Details Appointments SPECIAL PROCEDURE 2024 09:00A Nishi Vargas MD Not available Not available Not available ANNUAL EXAM 2025 08:00A Nishi Vargas MD Not available Not available Not available Lab cytology report, thin prep, smear or scraping, cervical or vaginal 2024 025 [facility] (Centralized Electronic Ordering - All Locations), Patient Can Go To The Location Of Their Choice, [id number] 12/04/2024 20:19:49 hemoglobi n, gastroint estinal, stool 2024 025 smacmillan 1 In-Office Order, Internal Use Only DO Not Attach Compendium DO Not Attach Compendium, Do Not Delete/merge, [id number] 11/29/2024 08:47:16 Referral None recorded. Procedures None recorded. Surgeries None recorded. Imaging MAMMO, screening , digital, bilateral - Breast Aspiratio n and/or Biopsy if needed 2024 025 [facility], [address], [address], [place], [address], 11/29/2024 16:17:40 Medication Orders estradiol 0.05 mg/24 hr weekly transderm al patch 2024 025 [id number], [address] [place], [address], 11/29/2024 08:47:18 Patient TargetsNo targets recorded. Patient Instructions Encounter Date Encounter Id Patient Instructions Last Modified By Organization Details Last Modified Time 11/29/2024 [id number] learning about healthy weight [email or web address] Not available [...] ELIAL LESIO N (LSIL ). Not Available [facility] [address] [place], [address], 12/04/2024 20:19:49 11/29/19 25 12/04/2024 IGP, RFX APTIM A HPV ASCU specimen adequacy: Deja winkler Satis facto ry for evalu ation . Not Available [address], [address], 12/04/2024 20:19:49 11/29/19 25 12/04/2024 IGP, RFX APTIM A HPV ASCU clinician provided ICD10: Deja winkler Z01.4 19 Not Available [address], [address], 12/04/2024 20:19:49 11/29/19 25 12/04/2024 IGP, RFX APTIM A HPV ASCU performed by: Deja Skelton , Cytot echno logis t (ASCP ) Not Available [address], [address], 12/04/2024 20:19:49 11/29/19 25 12/04/2024 IGP, RFX APTIM A HPV ASCU electronical ly signed by: Deja Heredia MD, Patho logis t Not Available [address], [address], 12/04/2024 20:19:49 11/29/19 25 12/04/2024 IGP, RFX APTIM A HPV ASCU . . Not Available [address], [address], 12/04/2024 20:19:49 11/29/19 25 12/04/2024 IGP, RFX APTIM A HPV ASCU pathologist provided ICD10: Deja winkler R87.6 12 Not Available [address], [address], 12/04/2024 20:19:49 11/29/19 25 12/04/2024 IGP, RFX [...] repor ts do occur . Not Available [address], [address], 12/04/2024 20:19:49 11/29/19 25 12/04/2024 IGP, RFX APTIM A HPV ASCU test methodology: Commen t This liqui d based ThinP rep(R ) pap test was scree clayton with the use of an image guide kaden figueredo. Not Available [address], [address], 12/04/2024 20:19:49 11/29/19 25 12/04/2024 IGP, RFX APTIM A HPV ASCU . Commen t The HPV DNA refle x crite thi were not met with this speci men resul t there fore, no HPV testi ng was perfo rmed. Not Available [address], [address], 12/04/2024 20:19:49 11/29/19 25 11/29/2024 hemog lobin , gastr ointe jaspreet l, stool Occult Blood negati ve Not Available In-Office Order Internal Use Only DO Not Attach Compendium DO Not Attach Compendium, Do Not Delete/merge, [id number] 11/29/2024 08:28:20 11/29/19 25 11/29/2024 MAMMO , scree aguila, digit al, bilat eral No observ ation record ed. [facility] [address], [place], [address], 11/30/2024 08:00:36 Result Notes None recorded. Problems Name Problem SNOMED Code Status Onset Date Resolution Date Notes Provider Name and Address Organization Details Recorded Time Menopausal syndrome 424354516 Active 025 Florencia Vargas MD [address], [place], [address], [place] - [facility], 08:45:38 Problem Notes None recorded. Procedures Surgical History Date Name Laterality Status Provider Name and Address Organization Details Recorded Time 08/24/20 24 kidney stone analysis completed Iris Stern in [facility], 11/29/2024 08:23:16 07/25/20 10 laparoscopic bilateral salpingo-oophore ctomy completed Florencia Vargas MD [address], [place], [address], [place] [facility], 11/29/2024 08:07:25 10/24/20 09 hysterectomy completed Florencia Vargas MD [address] [facility],[address], [place], [address], [place] [facility], 11/29/2024 08:08:46 11/24/19 09 Breast Implants completed Iris Stern in [facility], 11/29/2024 08:24:25 Imaging Results Imaging Date Name Status LastModified by Organiz ation Details LastModified Time 11/29/2024 MAMMO, screening, digital, bilateral completed [facility] [address] [facility], [place], [address], 11/30/2024 08:00:36 Procedure Notes None recorded. Medical Equipment None Reported. Allergies Allergen ID Allergen Name Allergen Category Reaction Reaction Severity Criticality Documentation Date Start Date Code Code System Note Provider Name and Address Organization Details Recorded Time 84485 Bactrim medicatio n rash Not available Not available 11/29/2024 20253 9 RxNorm [place] in [facility], 08:52:12 65549 erythromy willam medicatio n rash Not available Not available 11/29/2024 4053 RxNorm Iris Meczywor null, [place] [facility], 08:52:33 Medications Name Sig Start Date Stop Date Status Note LastModified by Organization Details LastModified Time amoxicillin 500 mg capsule TAKE ONE CAPSULE BY MOUTH EVERY 8 HOURS UNTIL FINISHED 11/29 completed Not Available Not Available Not Available nystatin 100,000 unit/mL oral suspension SWISH 5 ML IN MOUTH AND SWALLOW FOUR TIMES A DAY FOR 7 DAYS active Not Available Not Available No t Available cefpodoxime 200 mg tablet TAKE ONE [...] Updated DateTime 5 160.02 cm 27.1 kg/m2 08020.3 5 g 98.1 [degF] 76 /min 119 mm[Hg] 66 mm[Hg] Iris Meczywor [place] - [facility], 08:15:13 Social History Question Answer Notes LastModified by Organizat ion Details LastModified Time Tobacco Smoking Status Current Every Day Smoker Iris [place] in [facility], 11/29/2024 08:21:31 What Is Your Level Of [...] Or The Highest Degree You Have Received? [id number] Information not available 11/29/2024 Who Is Your [...] Anxious, Or Unable To Sleep At Night)? [id number] Information not available 11/29/2024 Do You Use [...] Iris Meczywor null, [place] - [facility], 11/29/2024 08:15:45 COVID-19, mRNA, LNP-S, PF, 30 mcg/0.3 mL dose 1 completed Iris Meczywor null, [place] - [facility], 11/29/2024 08:15:45 COVID-19, mRNA, LNP-S, PF, 30 mcg/0.3 mL dose 1 completed Iris Meczywor null, [place] - [facility], 11/29/2024 08:15:45 COVID-19, mRNA, LNP-S, PF, 30 mcg/0.3 mL dose 1 completed Iris Meczywor null, [place] [facility], 11/29/2024 08:15:45 Tdap 1 completed Iris Meczywor null, [place] [facility], 11/29/2024 08:15:45 Influenza, split virus, quadrivalent, PF 0 completed Iris Meczywor null, [place] [facility], 11/29/2024 08:15:45 Influenza, split virus, quadrivalent, PF 1 completed Iris Meczywor null, [place] [facility], 11/29/2024 08:15:45 Past Encounters Encounter ID Performer Location Encounter Start Date Encounter Closed Date Diagnosis/Indication Diagnosis SNOMED-CT Code Diagnosis ICD10 Code Diagnosis Note [id number] MD FLORENCIA Woodall MD [address] [facility] [facility] [address] 11/29/2024 08:08:24 11/29/2024 15:38:53 Specialized medical examination 88965804 Z01.419 Screening for malignant neoplasm of rectum 607160618 Z12.12 Screening mammography 24 646458 Z12.31 Menopausal syndrome 1237 35829 N95.1 Health Concerns Section Related Observation LastModified by Organization Detai ls LastModified Time None Recorded Concern Status LastModified by Organization Details LastModified Time None Recorded Advance Directives Directive None Recorded Payers Encounter Date Sequence Insurance Name Policy Number Policy Cao Covered Member ID Cao Member ID Guarantor Name 11/29/2024 1 [place] [facility] [place] [id number] Maria D Gusman [id number] Maria D Gusman Notes Date Note [...] would like to restart. Florencia Vargas MD [address] [facility],[address], [place], [address], [place] [facility], 11/29/2024 09:33:32 OBGyn Episode No OBEpisode recorded.
--- OUTSIDE RECORDS SUMMARY | 2025-02-01 18:20 | XMS_ITS | Clinical Summary ---
Author Organization [address] Address [address] [place] [phone] Phone Care Team Providers Care Tread Tuber Machine Operator Name Role Phone Yeimi Montez MD Primary Care Prov ider Allergies Active Allergy Reactions Criticality Noted Date Comments Erythromycin Wheezing 07/10/2009 Sulfamethoxazole-Trimethopri m 12/14/2014 Bactrim Other Reaction(s): Hives/Urticaria, Rash/Dermatitis Medications albuterol HFA (PROAIR HFA ; PROVENTIL HFA ; VENTOLIN HFA) 90 mcg/actuation inhaler Inhale 2 Puffs into the lungs every 4 hours as needed for Cough or Wheezing. 05/16/2023 Active ciprofloxacin (CIPRO) 250 mg tablet 2 Times Daily. 03/26/2024 Active estradioL (VIVELLE-DOT) 0.0375 mg/[address] 1 Patch onto the skin continuous. 05/15/2023 Active hydrocortisone (ANUSOL-HC) 2.5 % rectal cream Use up to 5 times daily 02/24/2020 Active LORazepam (ATIVAN) 0.5 mg tablet Take 1 Tablet by mouth at bedtime as needed for Anxiety. 01/07/2024 Active naproxen (NAPROSYN) 500 mg tablet Take 1 Tablet by mouth 2 times daily (with meals). 04/30/2024 Active nicotine (NICODERM CQ) 14 mg/[address] 1 Patch onto the skin every 24 hours for 30 days. 05/16/2023 Active pyridoxine (B-6) 50 mg tablet TAKE ONE TABLET BY MOUTH EVERY DAY 09/16/2024 Active tamsulosin (FLOMAX) 0.4 mg 24 hr capsule Take 1 Capsule by mouth daily for 360 days. Take 30 mins after same meal every day. 07/16/2024 Active traMADoL (ULTRAM) 50 mg tablet Take 1 Tablet by mouth every 6 hours as needed for Pain for up to 7 days. 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 Stress test pending Tobacco use disorder 08/02/2011 Degenerative arthritis of cervical spine 011 Neck pain 02/26/2011 Radiculitis, cervical 02/26/2011 Encounters Date Type Department Care Team Description 12/16/2024 Telephone Adult Medicine [address] [phone] Yeimi Montez MD Vaginitis/Bacterial Vaginosis from Last 3 Months Immunizations Name Administration Dates Next Due Influenza Quadravalent, MDCK , 0.5ml, with preservative (Flucelvax) 6mo and older 08/14/2020,11/23/2019 Influenza, Unspecified 11/23/2019 Pfizer SARS-CoV-2 COVID-19, mRNA, LNP-S, preservative free 10/12/2021 Tdap Tetanus diptheria acell ular pertussis (Boostrix; Adacel) 7yo and older 04/23/2011 Surgical History Surgery Date Site/Laterality Comments TUBAL LIGATION PROCEDURE: HISTORICAL TUBAL LIGATION BREAST BIOPSY 2016 Left PROCEDURE: BX BREAST; PERC NEEDLE CORE W/IMAG GUID; COMMENT: left side bx neg BREAST SURGERY 2017 Bilateral PROCEDURE: ID UNLISTED PROCEDURE BREAST; COMMENT: implants BREAST REDUCTION 2019 Bilateral PROCEDURE: ID BREAST REDUCTION; COMMENT: implants removed Medical History Medical History Date Comments Environmental allergies DX:Envir onmental allergies Asthma DX:Asthma Depression DX:Depression Chest pain 08/02/2011 DX:Chest pain Tobacco use disorder 08/02/2011 DX:Tobacco use disorder Family History Medical History Relation Name Comments Lung cancer Mother Breast cancer Neg Hx Relation Name Status Comments Father Alive Mother Alive Sister Alive Social History Tobacco Use Types Packs/Day Years Used Date Smoking Tobacco: Every Day Cigarettes Smokeless Tobacco: Never Alcohol Use Standard Drinks/Week Comments Yes 2 (1 standard drink = 0.6 oz pur e alcohol) Comments Unknown Sex and Gender Information Value Date Recorded Sex Assigned at Not on file Legal Sex Female 3:27 AM EST Gender Identity Not on file Sexual Orientation Not on file Obstetrics History Last Filed Vital Signs Vital Sign Reading Time Taken Comments Blood Pressure 108/62 09/20/2024 1:53 PM EDT Pulse 72 09/20/2024 1:53 PM EDT Temperature - - Respiratory Rate - - Oxygen Saturation - - Inhaled Oxygen Concentration - - Weight 70 kg (154 lb 6.4 oz) 09/20/2024 1:53 PM EDT Height 160 cm (5' 3 ) 09/20/2024 1:53 PM EDT Body Mass Index 27.35 09/20/2024 1:53 PM EDT Plan of Treatment Upcoming Encounters Date Type Department Care Team (Late st Contact Info) Description 03/15/2025 3:00 PM EDT Office Visit Adult Medicine - [place] [address] [place] [address] Yeimi Montez MD [address], [place] 04/12/2025 3:15 PM EDT Office Visit Urogynecology [address] [address] Reyna Guillen MD [address] [place] [address] Health Maintenance Due Date Last Done Comments Hepatitis B Vaccines (1 of 3 - 19+ 3-dose series) 1989 Pneumococcal Vaccine: 50+ Years (1 of 2 - PCV) 1989 Pneumococcal Vaccine: Pediatrics (0 to 5 Years) and At-Risk Patients (6 to 64 Years) (1 of 2 - PCV) 1989 Zoster Vaccines (1 of 2) 2020 DTaP,Tdap,and Td Vaccines (2 - Td or Tdap) 04/23/2021 04/23/2011 Cholesterol Screening (Lipid Panel) 11/02/2022 04/30/2016 Depression Screening 11/02/2022 HIV Screening 11/02/2022 Lung Cancer Screening (Low Dose CT) 11/02/2022 Social Influencers of Health Screening 11/02/2022 COVID-19 Vaccine ( season) 2024 10/12/2021, 02/21/2021, 01/31/2021 Influenza Vaccine (#1) 2024 0, 11/23/2019, 11/23/2019 Breast Cancer Screening 05/13/2025 05/13/20 23, 05/08/2022, 05/03/2021, Additional history exists Cervical Cancer Screening: Pap Smear 01/07/2027 01/07/2024 Colorectal Cancer Screening: Colonoscopy 08/23/2032 08/23/2022 Hepatitis C Screening Completed 01/07/2024 HIB Vaccines Aged Out No longer eligi ble based on patient's age to complete this topic HPV Vaccines Aged Out No longer eligi ble based on patient's age to complete this topic Hepatitis A Vaccines Aged Out No long er eligible based on patient's age to complete this topic IPV Vaccines Aged Out No longer eligi ble based on patient's age to complete this topic MMR Vaccines Aged Out No longer eligi ble based on patient's age to complete this topic Meningococcal ACWY Vaccine Aged Out N o longer eligible based on patient's age to complete this topic Meningococcal B Vacine Aged Out No lo nger eligible based on patient's age to complete this topic RSV Immunization Patients Under 20 months Aged Out No longer eligible based on patient's age to complete this topic Varicella Vaccines Aged Out No longer eligible based on patient's age to complete this topic Procedures Procedure Name Priority Date/Time Associated Diagnosis Comments HEPATITIS C SCREENING Routine 01/07/2024 PAP SMEAR Routine 01/07/2024 DIAGNOSTIC MAMMOGRAPHY INCLUDING CAD BILATERAL Routine 05/13/2023 3:16 PM EDT Encounter for screening mammogram for malignant neoplasm of breast COLONOSCOPY Routine 08/23/2022 LIPID PANEL Routine 04/30/2016 from Last 3 Months or Most Recently Relevant to Health Maintenance Results * Hepatitis C Screening (01/07/2024) Hepatitis C Screening Refused, Abstracted Historical Provider HEALTH MAINTENANCE Final Result * Pap Smear (01/07/2024) Pap smear No Interpretation , Abstracted Historical Provider MD HEALTH MAINTENANCE Final Result * DIAGNOSTIC MAMMOGRAPHY INCLUDING CAD BILATERAL (05/13/2023 3:16 PM EDT) Anatomical Region Laterality Modality Mammography 05/08/2022 3:06 PM EDT Narrative 05/13/2023 5:11 PM EDT This is a summary report. The complete report is available in the patient's medical record. If you cannot access the medical record, please contact the sending organization for a detailed fax or copy. Bilateral mammogram. History mass in the left upper lobe slightly medial breast on provide this exam. ??Status post breast reduction surgery. Full field digital Tomosynthesis mammograms were obtained as well as spot compression views of the left breast in CC, MLO projections and for straight lateral view of the left breast. Compared with prior studies. ??Reviewed with CAD. Again noted are sequela of the breast reduction surgery with some stable coarse bilateral calcifications as well as some lipid cyst/fat necrosis in the left breast located in the retroareolar area and medial breast mid 3rd depth. ??Additionally there is a small asymmetric opacity in the left upper outer breast which was not present previously. ??It persists on the additional spot compression views. Limited ultrasound of the left breast. Evaluation of the area pointed by the patient in the upper medial breast corresponds to lipid cysts. ??No other cystic or solid masses were identified. ??Evaluation of the upper outer posterior left breast revealed no cystic or solid masses or focal acoustic shadowing. CONCLUSIONS: Palpable abnormality in the left breast superior and medial to the nipple most likely due to presence of lipid cysts. ??Small asymmetric density persisting on the additional views without ultrasonographic correlation. ??Findings were explained to the patient. ??She was given an option of breast MRI for stereotactic core biopsy of this asymmetric opacity. ??Patient injected the stereotactic core biopsy. ??She will be contacted by our staff for scheduling. BIRADS 4, suspicious abnormality. Procedure Note Meghan Hall MD - 12/30/2023 This is a summary report. The complete report is available in thepatient's medical record. If you cannot access the medical record, pleasecontact the sending organization for a detailed fax or copy. Bilateral mammogram. History mass in the left upper lobe slightly medial breast on provide thisexam. Status post breast reduction surgery. Full field digital Tomosynthesis mammograms were obtained as well as spotcompression views of the left breast in CC, MLO projections and forstraight lateral view of the left breast. Compared with prior studies. Reviewed with CAD. Again noted are sequela of the breast reduction surgery with some stablecoarse bilateral calcifications as well as some lipid cyst/fat necrosis inthe left breast located in the retroareolar area and medial breast mid 3rddepth. Additionally there is a small asymmetric opacity in the left upperouter breast which was not present previously. It persists on theadditional spot compression views. Limited ultrasound of the left breast. Evaluation of the area pointed by the patient in the upper medial breastcorresponds to lipid cysts. No other cystic or solid masses wereidentified. Evaluation of the upper outer posterior left breast revealedno cystic or solid masses or focal acoustic shadowing. CONCLUSIONS: Palpable abnormality in the left breast superior and medialto the nipple most likely due to presence of lipid cysts. Smallasymmetric density persisting on the additional views withoutultrasonographic correlation. Findings were explained to the patient.She was given an option of breast MRI for stereotactic core biopsy of thisasymmetric opacity. Patient injected the stereotactic core biopsy. Shewill be contacted by our staff for scheduling. BIRADS 4, suspicious abnormality. Result [facility] Trinity Ohara MD IMG BI PROCEDURES Final Result * Colonoscopy (08/23/2022) Colonoscopy No Interpretation , Abstracted Anatomical Region Laterality Modality Other Historical Provider HEALTH MAINTENANCE Final Result * (ABNORMAL) Lipid panel (04/30/2016) LDL/HDL Ratio 4 0 - 4 Triglycerides 184(A) 0 - 150 mg/dL Cholesterol 168 0 - 200 mg/dL HDL 40 >=40 mg/dL LDL Cholesterol 92 0 - 100 mg/dL Blood Venous blood specimen / Unknown Result [facility] Historical Provider LAB BLOOD ORDERABLES Saranya l Result from Last 3 Months or Most Recently Relevant to Health Maintenance Care Teams Tread Tuber Machine Operator Relationship Specialty Start Date End Date Yeimi Montez MD PCP - General 07/10/09
== END 2025-02-01 15:02 | disposition home or self-care (01) ==
LOC: HO.US 15:01
PROVIDERS: PCP Registered Nurse; Visit Provider Urology
DX: N20.0 Calculus of kidney (principal)
CPT/HCPCS: 76775

== ENCOUNTER → 2025-02-01 15:03 | Outpatient (BNV) | payer BC, SELFPAY | PROVIDERS: PCP Registered Nurse; Visit Provider Radiology Diagnostic Radiology | DX: N20.0 Calculus of kidney (principal) | CPT/HCPCS: 76775 ==

== ENCOUNTER 2025-02-25 14:55 | Outpatient (AMB) | payer BC, SELFPAY ==
--- NOTE | 2025-02-25 15:10 | A.OFFVIS_ITS ---
Intake Visit Reasons: ESWL, follow up/US Intake Note: Patient presents today for follow up/ESWL/US Urology Medication:Vitamin B6, Tamsulosin, Estradiol Antibiotic Allergy:none Blood Thinner:none Registrar College Or University Required: No Allergies erythromycin base Allergy (Verified 02/25/25 15:11) Chest Pain HPI Comments Details: Maria D is a pleasant female patient. She is a patient of . She is seen for the following urologic conditions - nephrolithiasis Mixed calcium stones Recommend decreased salt and increased water - was taking excess salt secondary to low blood pressure Vitamin B6 50 mg Imaging 3 mm left Six-month follow-up Nephrolithiasis Prior left renal stones 09/12/2024 CT imaging shows proximal ureteric stone and cluster within left kidney Stone composition - 09/16 Calcium Oxalate Dihydrate (Weddellite) 15% Calcium Oxalate Monohydrate (Whewellite) 70% Carbonate Apatite (Dahllite) 15% PFSH Medical History Drug-induced nausea and vomiting Seasonal allergies Surgical History Hx of cystoscopy Hx of breast implants, bilateral Hx of bilateral breast reduction surgery H/O: hysterectomy Family History Other Hx of breast reduction, elective Social History Are you a primary career and guidance counselor to a significant other at home: No Do you presently have visiting nurse or other home services: No Patient Tobacco Use Status: Current everyday Tobacco user Tobacco use type: Cigarette Cigarettes Per Day: 10 Review of Systems Const Denies chills and Denies fever(s) Card Reports no additional complaints and Denies syncope Resp Denies cough GI Denies abdominal pain and Denies heartburn Reports as per HPI and Denies change in libido Neuro Denies syncope Psych Denies change in libido Endo Denies change in libido Physical Exam Const General: cooperative, healthy appearing, comfortable and no acute distress Orientation/consciousness: patient oriented x3 HEENT Face and sinus: Yes normal facial exam Mouth: moist mucous membranes Neck Neck: Yes normal visual inspection, Yes full ROM and Yes trachea midline Chest Chest palpation & inspection: normal inspection of the chest Resp Effort & Inspection: normal respiratory effort, able to speak in complete sentences and no respiratory distress GI Inspection: Yes normal to inspection Back/Spine/Pelvis Cervical Spine: normal cervical lordosis Thoracic/Lumbar Spine: thoracic and lumbar spine normal to inspection Skin General skin exam: no rashes or lesions noted Neuro General: patient oriented x3, gait normal, tone normal and moves all extremities Extrem General: Yes normal to inspection and Yes capillary refill normal Assessment & Plan Assessment & Plan (1) Kidney stone: Code(s): N20.0 - Calculus of kidney Category: Medical Plan Six-month follow-up Orders: Orders US renal BI 6 Months N20.0 - Calculus of kidney Basic Metabolic Panel 6 Months N20.0 - Calculus of kidney Uric Acid 6 Months N20.0 - Calculus of kidney Calcium 6 Months N20.0 - Calculus of kidney Phosphorus 6 Months N20.0 - Calculus of kidney Vitamin D 25-OH Total 6 Months N20.0 - Calculus of kidney Magnesium 6 Months N20.0 - Calculus of kidney Parathyroid Hormone Intact 6 Months N20.0 - Calculus of kidney Patient Instructions: This note is constructed using voice recognition software. While every effort has been made to ensure accuracy cloth cutter errors may have been included. Imaging studies, laboratory and physical exam results were discussed and reviewed in detail. No major barriers to patient understanding were identified. An opportunity to ask questions regarding the treatment plan was provided. All questions were answered. The patient expressed understanding and agreement with the above treatment plan. The patient is aware they should contact our office by phone for worsening of their current condition or the appearance of new urologic symptoms. Compliance is encouraged with any medications and followup testing that is ordered. It is a privilege to participate in the urologic care of your patient. If you have any questions or concerns regarding treatment for the above conditions, or other urologic issues, please do not hesitate to contact me. The office telephone contact is [phone]. Sincerely, Dr Edwar Mohamud MD, [facility] - Urology Compassionate Specialist Care for the Genitourinary System Coding Level of Care Code Est Pt Level 3 (27890) Complex EM visit Add On G2211 Diagnoses Kidney stone N20.0
--- OUTSIDE RECORDS SUMMARY | 2025-02-25 16:22 | XMS_ITS | Encounter Summary ---
Author Organization [facility] Address [address] [place] [address] Care Team Providers Care Director University Name Role Phone Donna Montez MD Primary Care Provider [phone] [phone] Community, Pcp Unavailable Unavailable Reason for Referral * EXTERNAL (Priority) - Authorized/Booked Specialty Diagnoses / Procedures Referred By Rick winkler Referred To Contact Urology Procedures REFERRAL TO UROLOGY Donna Montez MD [address] [place], [place] [address] Referral ID Status Reason Start Date Expiration Date V isits Requested Visits Authorized [id number] Authorized/B ooked 08/11/2024 08/11/2025 6 6 Encounter Details Date Type Department Care Team Description 07/13/2024 Orders Only Adult Medicine - [place] [address] [place] [address] Donna Montez MD [address] [place] [address] Social History Tobacco Use Types Packs/Day Years Used Date Smoking Tobacco: Every Day Cigarettes 1 20 Smokeless Tobacco: Never Comments:07/07/2024 trying to quit using nicoderm Alcohol Use Standard Drinks/Week Comments Yes 2 (1 standard drink = 0.6 oz pur e alcohol) Sex Assigned at Date Recorded Not on file Job Start Date Occupation Industry Not on file Not on file Not on file documented as of this encounter Plan of Treatment Not on file documented as of this encounter Visit Diagnoses Not on filedocumented in this encounter Care Teams Director University Relationship Specialty Start Date End Date Donna Montez, [address] [place] [address] PCP - General 07/10/09 Community, Pcp 07/10/09 documented as of this encounter
--- OUTSIDE RECORDS SUMMARY | 2025-02-25 16:22 | XMS_ITS | Clinical Summary ---
Author Organization [address] Address [address] [place] [phone] Phone Care Team Providers Care Employee Benefits Specialist Name Role Phone Yeimi Montez MD Primary [...] Care Team Description 12/16/2024 Telephone Adult Medicine [place] [address] [place] [address] Yeimi Montez MD Vaginitis/Bacterial Vaginosis from [...] bx neg BREAST SURGERY 2017 Bilateral PROCEDURE: WI UNLISTED PROCEDURE BREAST; COMMENT: implants BREAST REDUCTION 2019 Bilateral PROCEDURE: WI BREAST REDUCTION; COMMENT: implants removed Medical History [...] PM EDT Office Visit Adult Medicine - [place] [address] [place] [address] Yeimi Montez MD [address] [place] [address] 04/12/2025 3:15 PM EDT Office Visit Urogynecology [address] [address] Reyna Guillen MD [address] [place] [address] Health Maintenance Due Date Last Done Comments [...] Screening (01/07/2024) Hepatitis C Screening Refused, Abstracted [facility] Provider HEALTH MAINTENANCE Final Result * Pap Smear (01/07/2024) Pap smear No Interpretation , Abstracted [facility] Provider MD [facility] Final Result * DIAGNOSTIC MAMMOGRAPHY INCLUDING CAD [...] staff for scheduling. BIRADS 4, suspicious abnormality. Trinity Ohara MD IMG BI PROCEDURES Final [...] mg/dL Blood Venous blood specimen / Unknown Historical Provider LAB BLOOD ORDERABLES Saranya l Result from Last 3 Months or Most Recently Relevant to Health Maintenance Insurance [facility] Care Teams Employee Benefits Specialist Relationship Specialty Start Date End Date Yeimi Montez MD PCP - General 07/10/09
--- OUTSIDE RECORDS SUMMARY | 2025-02-25 16:22 | XMS_ITS | Encounter Summary ---
Author Organization [facility] Address [address] [place] [address] Care Team Providers Care Whipper Beater Name Role Phone Donna Montez MD Primary Care Provider [phone] [phone] Community, Pcp Unavailable Unavailable Reason for Visit * Reason Onset Date Comments refill request 09/06/2016 Encounter Details Date Type Department Care Team Description 09/06/2016 Refill Adult Medicine - [place] [address] [place] [address] Donna Montez MD [address] [place] [address] refill request Social History Tobacco Use Types Packs/Day Years Used Date Smoking Tobacco: Every Day Cigarettes 0.5 20 Smokeless Tobacco: Never Alcohol Use Standard Drinks/Week Comments Not Asked 0 (1 standard drink = 0.6 oz pur e alcohol) Sex Assigned at Date Recorded Not on file Job Start Date Occupation Industry Not on file Not on file Not on file documented as of this encounter Miscellaneous Notes * Telephone Encounter - Cesilia Barrera M.A. - 09/09/2016 2:02 PM EDT Pt needs appointment * Telephone Encounter - Donna Montez MD - 09/06/2016 4:44 PM EDT Because she is asking for a medication that is controlled * Telephone Encounter - Kyara Rodriguez - 09/06/2016 4:40 PM EDT Spoke with patient, patient saw Nishi Young on 08/28/2016 for depression due to family and marital issues: patient does not understand why she would have to come back in for an appt after just being here: please advise * Telephone Encounter - Radha Acosta L.P.N. - 09/06/2016 4:15 PM EDT Please schedule appt, can see pcp or PA * Telephone Encounter - Donna Montez MD - 09/06/2016 10:14 AM EDT Unable to fill needs appt * Telephone Encounter - Radha Acosta L.P.N. - 09/06/2016 9:27 AM EDT Last filled 08/28/15 at with Jamie young * Telephone Encounter - Niki Nichols - 09/06/2016 9:14 AM EDT Patient would like script to be: E-PRESCRIBED/FAXED TO PHARMACY WHEN WAS THE PATIENT'S LAST APPOINTMENT IN ADULT MEDICINE? 08.28.16 WHEN WAS THE LAST TIME THE PATIENT SAW THEIR PCP? 06/06/16 Does patient have an upcoming appointment? Pt not due until 06/07/17. Pt states she only takes RX at night FYI to Jamie Young. Pt is aware that he is out of office. (THE MEDICATION REQUESTED IS ON THE MED LIST ABOVE) All of the medications requested were on the CURRENT MEDS list Did you check the Pharmacy information above?: YES Patient wants: 30 -day supply Is this a mail order prescription request ? NO Patients current insurance carrier is: Payor: [employer]shi[place]/[employer] FFS / Plan: Aniboom $30 MARCUS [id number] / ProductType: An[employer]oom PRE-PAID documented in this encounter Plan of Treatment Not on file documented as of this encounter Visit Diagnoses Diagnosis Marital disruption involving estrangement Other family disruption Family disruption due to of family member Anxiety Anxiety state, unspecified Other insomnia documented in this encounter Care Teams Whipper Beater Relationship Specialty Start Date End Date Donna Montez MD [address] [place] [address] PCP - General 07/10/09 Community, Pcp 07/10/09 documented as of this encounter
--- OUTSIDE RECORDS SUMMARY | 2025-02-25 16:22 | XMS_ITS | Encounter Summary ---
Author Organization [facility] Address [address] [place] [address] Care Team Providers Care Casket Inspector Name Role Phone Donna Montez MD Primary Care Provider [phone] [phone] Community, Pcp Unavailable Unavailable Reason for Visit * Reason Onset Date Comments Faxed Refill 02/15/2020 Encounter Details Date Type Department Care Team Description 02/15/2020 Refill Adult Medicine - [place] [address] [place] [address] Donna Montez, [address] [place] [address] Faxed Refill Social History Tobacco Use Types Packs/Day Years Used Date Smoking Tobacco: Every Day Cigarettes 1 20 Smokeless Tobacco: Never Alcohol Use Standard Drinks/Week Comments No 0 (1 standard drink = 0.6 oz pur e alcohol) Sex Assigned at Date Recorded Not on file Job Start Date Occupation Industry Not on file Not on file Not on file documented as of this encounter Miscellaneous Notes * Telephone Encounter - Junie Sepulveda - 02/15/2020 9:27 AM EDT Patient would like script to be: E-PRESCRIBED/FAXED TO PHARMACY WHEN WAS THE PATIENT'S LAST APPOINTMENT IN ADULT MEDICINE? 01/06/2020 WHEN WAS THE LAST TIME THE PATIENT SAW THEIR PCP? Does patient have an upcoming appointment? No-patient refused appointment, will call back to book appointment (THE MEDICATION REQUESTED IS ON THE MED LIST ABOVE) All of the medications requested were on the CURRENT MEDS list Did you check the Pharmacy information above?: YES Patient wants: 30 -day supply Is this a mail order prescription request ? NO If the refill is from a FAXED refill request what is the RX # listed on the fax? N/A Patients current insurance carrier is: Payor: NEHEMIAH/[employer] FFS / Plan: [employer] $30 [employer] [id number] / ProductType: [employer] PRE-PAID documented in this encounter Plan of Treatment Not on file documented as of this encounter Visit Diagnoses Not on filedocumented in this encounter Care Teams Casket Inspector Relationship Specialty Start Date End Date Donna Montez, [address] [place] [address] PCP - General 07/10/09 Community, Pcp 07/10/09 documented as of this encounter
--- OUTSIDE RECORDS SUMMARY | 2025-02-25 16:22 | XMS_ITS | Encounter Summary ---
Author Organization [facility] Address [address] [place] [address] Care Team Providers Care Computer Security Coordinator Name Role Phone Donna Montez MD Primary Care Provider [phone] [phone] Community, Pcp Unavailable Unavailable Encounter Details Date Type Department Care Team Description 06/07/2024 Telephone Medicine/Pediatrics - [address] [phone] Maricarmen Sweet PA-C [address] [place] [address] Social History Tobacco Use Types Packs/Day Years [...] encounter Miscellaneous Notes * Telephone Encounter - Marii Kearney M.A. - 06/07/2024 11:24 AM EDT Spoke to patient, she told me she scheduled her 6 month follow up mammogram for a date in October.She said she scheduled this at her mammogram she had 2 weeks ago. She is all set. * Telephone Encounter - Maricarmen Sweet PA-C - 06/07/2024 11:16 AM EDT PLEASE call patient and advise that we received her mammogram results. Appears they want to do a 6 month follow up mammogram - please make sure patient is scheduled for this with [facility]. documented in this encounter Plan of Treatment Not on file documented as of this encounter Visit Diagnoses Not on filedocumented in this encounter Care Teams Computer Security Coordinator Relationship Specialty Start Date End Date Donna Montez MD [address] [place] [address] PCP - General 07/10/09 Community, Pcp 07/10/09 documented as of this encounter
--- OUTSIDE RECORDS SUMMARY | 2025-02-25 16:22 | XMS_ITS | Encounter Summary ---
Author Organization [facility] Address [address] [place] [address] Care Team Providers Care Car Worker Name Role Phone Donna Montez MD Primary Care Provider [phone] [phone] Community, Pcp Unavailable Unavailable Encounter Details Date Type Department Care Team Description 07/16/2024 Telephone Adult Medicine - [place] [address] [place] [address] Donna Montez MD [address] [place] [address] Social History Tobacco Use Types Packs/Day Years [...] on filedocumented in this encounter Care Teams Car Worker Relationship Specialty Start Date End Date Donna Montez MD [address] [place] [address] PCP - General 07/10/09 Community, Pcp 07/10/09 documented as of this encounter
--- OUTSIDE RECORDS SUMMARY | 2025-02-25 16:22 | XMS_ITS | Encounter Summary ---
Author Organization [facility] Address [address] [place] [address] Care Team Providers Care Toy Parts Former Supervisor Name Role Phone Donna Montez MD Primary Care Provider [phone] [phone] Community, Pcp Unavailable Unavailable Reason for Visit * Reason Onset Date Comments Prior Authorization 03/08/2022 Flunisolide 25 MCG/ACT (0.025%) Solution Encounter Details Date Type Department Care Team Description 03/08/2022 Telephone Adult Medicine - [place] [address] [place] [address] Donna Montez MD [address] [place] [address] Prior Authorization (Flunisolide 25 MCG/ACT (0.025%) Solution) Social History Tobacco Use Types Packs/Day Years Used Date Smoking Tobacco: Every Day Cigarettes 1 20 Smokeless Tobacco: Never Alcohol Use Standard Drinks/Week Comments Yes 2 (1 standard drink = 0.6 oz pur e alcohol) Sex Assigned at Date Recorded Not on file Job Start Date Occupation Industry Not on file Not on file Not on file COVID-19 Exposure Response Date Recorded In the last 10 days, have yo u been in contact with someone who was confirmed or suspected to have Coronavirus/COVID-19? No / Unsure 03/08/2022 10:50 AM EDT documented as of this encounter Miscellaneous Notes * Telephone Encounter - Donna Montez MD - 03/08/2022 2:24 PM EDT Yes the Flonase can be changed we will try Beconase when I put in for the Beconase it said not on formulary but I have already given her Astelin I will use that instead. * Telephone Encounter - Tessy Bella M.A. - 03/08/2022 1:33 PM EDT Beconase aq, qnasl, mometasone furoate are preferred Could the flunisolide be changed, if not I will need reason for prior auth [place] to p [phone] Prior Auth pool Tessy Bella M.A. Regional Prior Authorizations Ext [id number] Fax: [phone] [place] [phone] Prior Auth pool * Telephone Encounter - Junie Sepulveda - 03/08/2022 12:31 PM EDT Prior Authorization for Medication-do not complete and send this encounter unless you have the fax from the pharmacy. Is this a Cover My Meds request: Yes -- [place] Code [id number] Name of Medication Flunisolide 25 MCG/ACT (0.025%) Solution Dose of Medication 0.025% What is the RX # from the faxed refill? How does patient take this med? Sig - Route: Take 1 Puff by mouth 2 times daily. - Oral What Pharmacy did the fax come from: [facility] fax #: [phone] [employer] Party Information from fax: What Prescription Plan does the patient have? NA BIN/PCN if applicable: Cardholder ID:[id number] Person Code: Relationship Code: Help desk phone: documented in this encounter Plan of Treatment Not on file documented as of this encounter Visit Diagnoses Not on filedocumented in this encounter Care Teams Toy Parts Former Supervisor Relationship Specialty Start Date End Date Donna Montez MD [facility] [place] [address] PCP - General 07/10/09 Community, Pcp 07/10/09 documented as of this encounter
--- OUTSIDE RECORDS SUMMARY | 2025-02-25 16:22 | XMS_ITS | Clinical Summary ---
Author Organization [facility] Address [address] [place] [address] Care Team Providers Care Paper Wood Cutter Name Role Phone Donna Montez MD Primary Care Provider [phone] [phone] Community, Pcp Unavailable Unavailable Allergies Active Allergy Reactions Severity Noted Date Comments Sulfamethoxazole W/Trimethoprim Hives/Ur ticaria,Rash/Pierce matitis 12/14/2014 Erythromycin SOB, Wheezing 07/10/2009 Medications Medication Sig Dispensed Refills Start Date End Date Status hydrocortisone (ANUSOL-HC) 2.5 % rectal cream Use up to 5 times daily 30 g 0 02/24/2020 Active estradiol (VIVELLE-DOT) 0.0375 MG/24HR Place 1 Patch onto the skin continuous. 0 05/15/2023 Active ALBUTEROL SULFATE 108 (90 Base) MCG/ACT Aero Soln Inhale 2 Puffs into the lungs every 4 hours as needed for Cough or Wheezing. 8.5 g 1 05/16/2023 Active nicotine (NICODERM CQ) 14 MG/24HR Place 1 Patch onto the skin every 24 hours for 30 days. 28 Patch 0 05/16/2023 Active lorazepam (ATIVAN) 0.5 MG tablet Take 1 Tablet by mouth at bedtime as needed for Anxiety. 30 Tablet 0 01/07/2024 Active ciprofloxacin (CIPRO) 250 MG tabletIndications:D ysuria 2 Times Daily. 0 03/26/2024 Active naproxen (NAPROSYN) 500 MG tablet Take 1 Tablet by mouth 2 times daily (with meals). 60 Tablet 1 04/30/2024 Active fluticasone 50 MCG/ACT nasal spray INSTILL 2 SPRAYS INTO EACH NOSTRIL DAILY FOR 14 DAYS 32 g 0 05/21/2024 Active tamsulosin (Flomax) 0.4 MG 24 hr capsule Take 1 Capsule by mouth daily for 360 days. Take 30 mins after same meal every day. 15 Capsule 0 07/16/2024 07/11/2025 Active tramadol (ULTRAM) 50 MG tablet Take 1 Tablet by mouth every 6 hours as needed for Pain for up to 7 days. 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 Stress test pending Tobacco use disorder 08/02/2011 Degenerative arthritis of cervical spine 03/12/2011 Radiculitis, cervical 02/26/2011 Neck pain 02/26/2011 Environmental allergies Depression Immunizations Name Administration Dates Next Due COVID-19 (Cool Containers) Pt Reported 10/12/2021, 021,01/31/2021 Influenza Flu (PT Reported) 11/23/2019 Influenza Vaccine-quadrivalent 4 Years Plus 07/26,11/23/2019 Tdap 04/23/2011 Family History Medical History Relation Name Comments CA Lung Mother CA Breast Negative Hx Relation Name Status Comments Father Alive [...] file Not on file Not on file Last Filed Vital Signs Vital Sign Reading Time Taken Comments Blood Pressure 108/62 09/20/2024 1:53 PM EDT Pulse 72 09/20/2024 1:53 PM EDT Temperature 36.9 ??C (98.4 ??F) 07/07/2024 3:32 PM ED T Respiratory Rate 16 09/20/2024 1:53 PM EDT Oxygen Saturation 98% 10/31/2023 1:28 PM EST Inhaled Oxygen Concentration - - Weight 70 kg (154 lb 6.4 oz) 09/20/2024 1:53 PM EDT Height 160 cm (5' 3 ) 09/20/2024 1:53 PM EDT Body Mass Index 27.35 09/20/2024 1:53 PM EDT Plan of Treatment Health Maintenance Due Date Last Done Comments SHINGLES VACCINE (1 of 2) 2020 DTAP/TDAP/TD (2 - Td or Tdap) 04/23/2021 04/23/2011 Covid-19 Vaccine ( season) 2024 10/12/2021, 02/21/2021, 01/31/2021 BMI CHECK/ADVISE 11/24/2024 01/07/2024, (Completed), 05/18/2021 (Completed), Additional history exists MAMMOGRAM 05/26/2025 05/26/2024, 01/2024 (External Completion), 05/19/2023, Additional history exists INFLUENZA (Season Ended) 2025 020, 11/23/2019, 11/23/2019 (External Completion of Vaccination per patient), Additional history exists COLON CANCER SCREENING 08/23/2025 08/23/2022 BASELINE HEALTH EXAM 40-64 01/07/202601/07, 01/07/2024 (Completed), 05/18/2021, Additional history exists CHOLESTEROL SCREENING 05/18/2026 05/18/2021 , 05/18/2021, 04/30/2016, Additional history exists TOBACCO CHECK/ADVISE 09/20/2026 09/20/2024, 07/16/2024, 07/13/2024, Additional history exists CERVICAL CANCER SCREENING 01/07/20272023 (External Completion), 12/25/2018 (External Completion), 11/24/2014 (External Completion), Additional history exists PNEUMOCOCCAL VACCINE FOR HIGH RISK PATIENTS (#1) 2035 HEPATITIS C SCREENING Addressed 01/07/2024 (Refused ) Overridden with the intention of not completing the topic Care Teams Paper Wood Cutter Relationship Specialty Start Date End Date Donna Montez MD [address] [place] [address] PCP - General 07/10/09 Community, Pcp 07/10/09
--- OUTSIDE RECORDS SUMMARY | 2025-02-25 16:22 | XMS_ITS | Encounter Summary ---
Author Organization [facility] Address [address] [place] [address] Care Team Providers Care Track Patrol Name Role Phone Donna Montez MD Primary Care Provider [phone] [phone] Community, Pcp Unavailable Unavailable Encounter Details Date Type Department Care Team Description 07/16/2024 Refill Adult Medicine - [place] [address] [place] [address] Donna Montez MD [address] [place] [address] Social History Tobacco Use Types Packs/Day Years [...] on filedocumented in this encounter Care Teams Track Patrol Relationship Specialty Start Date End Date Donna Montez MD [address] [place] [address] PCP - General 07/10/09 Community, Pcp 07/10/09 documented as of this encounter
--- OUTSIDE RECORDS SUMMARY | 2025-02-25 16:22 | XMS_ITS | Encounter Summary ---
Author Organization [facility] Address [address] [place] [address] Care Team Providers Care Turn Laster Name Role Phone Donna Montez MD Primary Care Provider [phone] [phone] Community, Pcp Unavailable Unavailable Reason for Visit * Reason Onset Date Comments Medication 08/20/2022 Encounter Details Date Type Department Care Team Description 08/20/2022 Refill Gastroenterology [address] [place] [phone] Rodney Ryan MD [address] [place] [address] Medication Social History Tobacco Use Types Packs/Day Years [...] on filedocumented in this encounter Care Teams Turn Laster Relationship Specialty Start Date End Date Donna Montez MD [address] [place] [address] PCP - General 07/10/09 Community, Pcp 07/10/09 documented as of this encounter
--- OUTSIDE RECORDS SUMMARY | 2025-02-25 16:22 | XMS_ITS | Encounter Summary ---
Author Organization [facility] Address [address] [place] [address] Care Team Providers Care Machining Manager Name Role Phone Donna Montez MD Primary Care Provider +1 -[phone] Community, Pcp Unavailable Unavailable Reason for Visit * Reason Onset Date Comments TEST RESULTS 01/16/2012 Encounter Details Date Type Department Care Team Description 01/16/2012 Telephone Adult Medicine - [place] [address] [place] [address] Donna Montez, [address] [place] [address] TEST RESULTS Social History Tobacco Use Types Packs/Day Years Used Date Smoking Tobacco: Every Day Cigarettes 0.5 Alcohol Use Standard Drinks/Week Comments Not Asked 0 (1 standard drink = 0.6 oz pur e alcohol) Sex Assigned at Date Recorded Not on file Job Start Date Occupation Industry Not on file Not on file Not on file documented as of this encounter Miscellaneous Notes * Telephone Encounter - Joyce Orozco L.P.N. - 01/17/2012 2:12 PM EST Forwarded to PCP, Dr andrew no longer working for [employer] * Telephone Encounter - Teri Culver - 01/16/2012 3:00 PM EST Inform patient: ANY URGENT OR ABNORMAL RESULTS WIILL RESULT IN A CALL BACK TO THE PATIENT TICO. Type of test: :ultrasound of abdomen Date test was performed: 01/10/2012 Where was the test performed: [facility] Who ordered this test?: Dr. Andrew Is the doctor here today?: NO Can the message wait until the doctor returns?: NO IF PATIENT'S PCP IS NOT IN INSTRUCT PATIENT THAT THEY WILL RECEIVE A CALL BACK WHEN THE PCP IS IN THE OFFICE NEXT. documented in this encounter Plan of Treatment Not on file documented as of this encounter Visit Diagnoses Not on filedocumented in this encounter Care Teams Machining Manager Relationship Specialty Start Date End Date Donna Montez MD [facility] [place][note 2] [place] [address] PCP - General 07/10/09 Community, Pcp 07/10/09 documented as of this encounter
--- OUTSIDE RECORDS SUMMARY | 2025-02-25 16:22 | XMS_ITS | Encounter Summary ---
Author Organization [facility] Address [address] [place] [address] Care Team Providers Care Instructor Wastewater Treatment Plant Name Role Phone Donna Montez MD Primary Care Provider [phone] [phone] Community, Pcp Unavailable Unavailable Reason for Visit * Reason Onset Date Comments Faxed Order 06/02/2024 Mammogram ( [facility]) Encounter Details Date Type Department Care Team Description 06/02/2024 Telephone Adult Medicine - [place] [address] [place] [address] Donna Montez MD [address] [place] [address] Faxed Order (Mammogram ( [facility])) Social History Tobacco Use Types Packs/Day Years [...] encounter Miscellaneous Notes * Telephone Encounter - Selina Stack M.A. - 06/02/2024 2:36 PM EDT Faxed, filed and confirmed. * Telephone Encounter - Junie Sepulveda - 06/02/2024 8:01 AM EDT . PLEASE CLOSE ( SIGN ENCOUNTER) MESSAGE WHEN ORDER HAS BEEN FAXED Faxed order Left and Right Diagnostic Mammogram received from [facility], requesting signature from provider. Please sign and fax back to [phone]. Faxed order in PCP's folder ( orange) at check out. documented in this encounter Plan of Treatment Not on file documented as of this encounter Visit Diagnoses Not on filedocumented in this encounter Care Teams Instructor Wastewater Treatment Plant Relationship Specialty Start Date End Date Donna Montez, [address] [place] [address] PCP - General 07/10/09 [facility], Pcp 07/10/09 documented as of this encounter
--- OUTSIDE RECORDS SUMMARY | 2025-02-25 16:22 | XMS_ITS | Encounter Summary ---
Author Organization [facility] Address [address] [place] [address] Care Team Providers Care Foot Miter Operator Name Role Phone Donna Montez MD Primary Care Provider +1 -[phone] Community, Pcp Unavailable Unavailable Encounter Details Date Type Department Care Team Description 12/30/2012 Hospital Medical Records [address] [place] [address] Migel Ortiz DO Social History Tobacco Use Types Packs/Day Years [...] on filedocumented in this encounter Care Teams Foot Miter Operator Relationship Specialty Start Date End Date Donna Montez MD [address] [place] [address] PCP - General 07/10/09 Community, Pcp 07/10/09 documented as of this encounter
--- OUTSIDE RECORDS SUMMARY | 2025-02-25 16:22 | XMS_ITS | Encounter Summary ---
Author Organization [facility] Address [address] [place] [address] Care Team Providers Care Die Assembler Name Role Phone Donna Montez MD Primary Care Provider [phone] [phone] Community, Pcp Unavailable Unavailable Reason for Visit * Reason Onset Date Comments Special Procedure 06/04/2021 Encounter Details Date Type Department Care Team Description 06/04/2021 Telephone Gastroenterology [address] [place] [address] Rodney Ryan MD [address] [place] [address] Special Procedure Social History Tobacco Use Types Packs/Day Years [...] Exposure Response Date Recorded In the last month, have you been in contact with someone who was confirmed or suspected to have Coronavirus / COVID-19? No / Unsure 05/18/2021 4:32 PM EDT documented as of this encounter Plan of Treatment Not on file documented as of this encounter Visit Diagnoses Not on filedocumented in this encounter Care Teams Die Assembler Relationship Specialty Start Date End Date Donna Montez MD [address] [place] [address] PCP - General 07/10/09 Community, Pcp 07/10/09 documented as of this encounter
--- OUTSIDE RECORDS SUMMARY | 2025-02-25 16:22 | XMS_ITS | Encounter Summary ---
Author Organization [facility] Address [address] [place] [address] Care Team Providers Care Logistics Loss Prevention Manager Name Role Phone Donna Montez MD Primary Care Provider [phone] [phone] Community, Pcp Unavailable Unavailable Reason for Visit * Reason Onset Date Comments Ear Pain 12/12/2015 Encounter Details Date Type Department Care Team Description 12/12/2015 Telephone Adult Medicine - [place] [address] [place] [address] Donna Montez, [address] [place] [address] Ear Pain Social History Tobacco Use Types Packs/Day Years Used Date Smoking Tobacco: Every Day Cigarettes 0.5 Smokeless Tobacco: Never Alcohol Use Standard Drinks/Week Comments Not Asked 0 (1 standard drink = 0.6 oz pur e alcohol) Sex Assigned at Date Recorded Not on file Job Start Date Occupation Industry Not on file Not on file Not on file documented as of this encounter Miscellaneous Notes * Telephone Encounter - Kaleb Delong LPN - 12/12/2015 9:23 AM EST Appointment scheduled with Ross Young on 12/13/15 pt was seen at [facility] on 12/03/15 , please obtain records * Telephone Encounter - Niki Nichols - 12/12/2015 8:53 AM EST Pt was seen in Urgent care in [facility] on 12/03/15. States that the MD that assessed her stated that she had fluid in her ears and told her if this did not get better to call her PCP and obtaina referral to ENT. Pt states that her ears are still blocked, states that she has trouble hearing, and states that she is dizzy. Please advise. documented in this encounter Plan of Treatment Not on file documented as of this encounter Visit Diagnoses Not on filedocumented in this encounter Care Teams Logistics Loss Prevention Manager Relationship Specialty Start Date End Date Donna Montez, [address] [place] [address] PCP - General 07/10/09 Community, Pcp 07/10/09 documented as of this encounter
--- OUTSIDE RECORDS SUMMARY | 2025-02-25 16:22 | XMS_ITS | Encounter Summary ---
Author Organization [facility] Address [address] [place] [address] Care Team Providers Care Bit And Shank Department Supervisor Name Role Phone Donna Montez MD Primary Care Provider [phone] -[phone] Community, Pcp Unavailable Unavailable Encounter Details Date Type Department Care Team Description 07/16/2024 Pt. Non Urgent Medic al Question Adult Medicine - [address] [address] Donna Montez MD [address] [place] [address] Social History Tobacco Use Types Packs/Day Years [...] on filedocumented in this encounter Care Teams Bit And Shank Department Supervisor Relationship Specialty Start Date End Date Donna Montez MD [address] [place] [address] PCP - General 07/10/09 Community, Pcp 07/10/09 documented as of this encounter
--- OUTSIDE RECORDS SUMMARY | 2025-02-25 16:22 | XMS_ITS | Encounter Summary ---
Author Organization [facility] Address [address] [place] [address] Care Team Providers Care Coding Compliance Manager Name Role Phone Donna Montez MD Primary Care Provider [phone] -[phone] Community, Pcp Unavailable Unavailable Reason for Visit * Reason Onset Date Comments Medication 08/13/2022 Encounter Details Date Type Department Care Team Description 08/13/2022 Refill Gastroenterology [address] [place] [phone] Rodney Ryan MD [address] [place] [address] Medication Social History Tobacco Use Types Packs/Day [...] on filedocumented in this encounter Care Teams Coding Compliance Manager Relationship Specialty Start Date End Date Donna Montez MD [address] [place] [address] PCP - General 07/10/09 Community, Pcp 07/10/09 documented as of this encounter
--- OUTSIDE RECORDS SUMMARY | 2025-02-25 16:22 | XMS_ITS | Data Portability ---
Author Organization [place] [facility],, FLORENCIA VARGAS MD Address [address] [facility] [address] [place] [address] Care Team Providers Care Restaurant Management Internship Name Role Phone ARACELI MARGOT Primary Care Provide r Assessment No assessment recorded. Plan of Treatment Reminders Order Date Submit Date Provider Last Modified By Organization Details Last Modified Time Details Appointments SPECIAL PROCEDURE 2024 09:00A Nishi Vargas MD Not available Not available Not available ANNUAL EXAM 2025 08:00A Nisih Vargas MD Not available Not available Not available Lab cytology report, thin prep, smear or scraping, cervical or vaginal 2024 025 [place] [facility] (Centralized Electronic Ordering - All Locations), Patient Can Go To The Location Of Their Choice, [id number] 12/04/2024 20:19:49 hemoglobi n, gastroint estinal, stool 2024 025 [place] 1 In-Office Order, Internal Use Only DO Not Attach Compendium DO Not Attach Compendium, Do Not Delete/merge, [id number] 11/29/2024 08:47:16 Referral None recorded. Procedures None recorded. Surgeries None recorded. Imaging MAMMO, screening , digital, bilateral - Breast Aspiratio n and/or Biopsy if needed 2024 025 [facility], [address], [address], [place], [address], 11/29/2024 16:17:40 Medication Orders estradiol 0.05 mg/24 hr weekly transderm al patch 2024 025 [id number], [address] [place], [address], 11/29/2024 08:47:18 Patient TargetsNo targets recorded. Patient Instructions Encounter Date Encounter Id Patient Instructions Last Modified By Organization Details Last Modified Time 11/29/2024 [id number] learning about healthy weight [email or web address] Not available [...] ELIAL LESIO N (LSIL ). Not Available [facility] [address] [place], [address], 12/04/2024 20:19:49 11/29/19 25 12/04/2024 IGP, RFX APTIM A HPV ASCU specimen adequacy: Deja winkler Satis facto ry for evalu ation . Not Available [address], [address], 12/04/2024 20:19:49 11/29/19 25 12/04/2024 IGP, RFX APTIM A HPV ASCU clinician provided ICD10: Deja winkler Z01.4 19 Not Available [address], [address], 12/04/2024 20:19:49 11/29/19 25 12/04/2024 IGP, RFX APTIM A HPV ASCU performed by: Deja Skelton , Cytot echno logis t (ASCP ) Not Available [address], [address], 12/04/2024 20:19:49 11/29/19 25 12/04/2024 IGP, RFX APTIM A HPV ASCU electronical ly signed by: Deja Heredia MD, Patho logis t Not Available [address], [address], 12/04/2024 20:19:49 11/29/19 25 12/04/2024 IGP, RFX APTIM A HPV ASCU . . Not Available [address], [address], 12/04/2024 20:19:49 11/29/19 25 12/04/2024 IGP, RFX APTIM A HPV ASCU pathologist provided ICD10: Deja winkler R87.6 12 Not Available [address], [address], 12/04/2024 20:19:49 11/29/19 25 12/04/2024 IGP, RFX [...] repor ts do occur . Not Available [address], [address], 12/04/2024 20:19:49 11/29/19 25 12/04/2024 IGP, RFX APTIM A HPV ASCU test methodology: Commen t This liqui d based ThinP rep(R ) pap test was scree clayton with the use of an image guide kaden figueredo. Not Available [address], [address], 12/04/2024 20:19:49 11/29/19 25 12/04/2024 IGP, RFX APTIM A HPV ASCU . Commen t The HPV DNA refle x crite thi were not met with this speci men resul t there fore, no HPV testi ng was perfo rmed. Not Available [address], [address], 12/04/2024 20:19:49 11/29/19 25 11/29/2024 hemog lobin , gastr ointe jaspreet l, stool Occult Blood negati ve Not Available In-Office Order Internal Use Only DO Not Attach Compendium DO Not Attach Compendium, Do Not Delete/merge, [id number] 11/29/2024 08:28:20 11/29/19 25 11/29/2024 MAMMO , scree aguila, digit al, bilat eral No observ ation record ed. [facility] [address], [place], [address], 11/30/2024 08:00:36 Result Notes None recorded. Problems Name Problem SNOMED Code Status Onset Date Resolution Date Notes Provider Name and Address Organization Details Recorded Time Menopausal syndrome 428831367 Active 025 Florencia Vargas MD [address], [place], [address], [place] [facility], 08:45:38 Problem Notes None recorded. Procedures Surgical History Date Name Laterality Status Provider Name and Address Organization Details Recorded Time 08/24/20 24 kidney stone analysis completed Iris Stern in [facility], 11/29/2024 08:23:16 07/25/20 10 laparoscopic bilateral salpingo-oophore ctomy completed Florencia Vargas MD [address], [place], [address], [place] [facility], 11/29/2024 08:07:25 10/24/20 09 hysterectomy completed Florencia Vargas MD [address] [facility],[address], [place], [address], [place] [facility], 11/29/2024 08:08:46 11/24/19 09 Breast Implants completed Iris Stern in [facility], 11/29/2024 08:24:25 Imaging Results Imaging Date Name Status LastModified by Organiz ation Details LastModified Time 11/29/2024 MAMMO, screening, digital, bilateral completed [facility] [address] [facility] [place], [address], 11/30/2024 08:00:36 Procedure Notes None recorded. Medical Equipment None Reported. Allergies Allergen ID Allergen Name Allergen Category Reaction Reaction Severity Criticality Documentation Date Start Date Code Code System Note Provider Name and Address Organization Details Recorded Time 83758 Bactrim medicatio n rash Not available Not available 11/29/2024 45947 9 RxNorm [place] in [facility], 08:52:12 [address] erythromy willam medicatio n rash Not available [...] Updated DateTime 5 160.02 cm 27.1 kg/m2 23723.3 5 g 98.1 [degF] 76 /min 119 mm[Hg] 66 mm[Hg] Iris Meczywor [place] [facility], 08:15:13 Social History Question Answer Notes LastModified by Organizat ion Details LastModified Time Tobacco Smoking Status Current Every Day Smoker Iris [place] in [facility], 11/29/2024 08:21:31 What Is Your Level Of [...] Or The Highest Degree You Have Received? [id number] Information not available 11/29/2024 Who Is Your [...] Anxious, Or Unable To Sleep At Night)? GS5840-9 Information not available 11/29/2024 Do You Use [...] Problems N Defects or Inherited Disease N History [...] Iris Meczywor null, [place] [facility], 11/29/2024 08:15:45 COVID-19, mRNA, LNP-S, PF, 30 mcg/0.3 mL dose 1 completed Iris Meczywor null, [place] [facility], 11/29/2024 08:15:45 COVID-19, mRNA, LNP-S, PF, 30 mcg/0.3 mL dose 1 completed Iris Meczywor null, [place] [facility], 11/29/2024 08:15:45 COVID-19, mRNA, LNP-S, PF, 30 mcg/0.3 mL dose 1 completed Iris Meczywor null, [place] [facility], 11/29/2024 08:15:45 Tdap 1 completed Iris Meczywor null, [place] [facility], 11/29/2024 08:15:45 Influenza, split virus, quadrivalent, PF 0 completed Iris Meczywor null, [place] [facility], 11/29/2024 08:15:45 Influenza, split virus, quadrivalent, PF 1 completed Irsi Meczywor null, [place] [facility], 11/29/2024 08:15:45 Past Encounters Encounter ID Performer Location Encounter Start Date Encounter Closed Date Diagnosis/Indication Diagnosis SNOMED-CT Code Diagnosis ICD10 Code Diagnosis Note [id number] MD FLORENCIA Woodall MD [address] [facility], [address] [facility] [address] 11/29/2024 08:08:24 11/29/2024 15:38:53 Specialized medical examination 56215757 Z01.419 Screening for malignant neoplasm of rectum 363850923 Z12.12 Screening mammography 24 331491 Z12.31 Menopausal syndrome 1237 [address] N95.1 Health Concerns Section Related Observation LastModified by Organization Detai ls LastModified Time None Recorded Concern Status LastModified by Organization Details LastModified Time None Recorded Advance Directives Directive None Recorded Payers Encounter Date Sequence Insurance Name Policy Number Policy Cao Covered Member ID Cao Member ID Guarantor Name 11/29/2024 1 [place] [facility] [place] [place] [id number] Maria D Gusman [id number] Maria D Gusman Notes Date Note [...] like to restart. Florencia Vargas MD [address] [facility],[address], [place], [address], [place] [facility], 11/29/2024 09:33:32 OBGyn Episode No OBEpisode recorded.
--- OUTSIDE RECORDS SUMMARY | 2025-02-25 16:22 | XMS_ITS | Encounter Summary ---
Author Organization [facility] Address [address] [place] [address] Care Team Providers Care Inspector Balance Truing Name Role Phone Donna Montez MD Primary Care Provider +1 -[phone] Community, Pcp Unavailable Unavailable Encounter Details Date Type Department Care Team Description 08/09/2023 Orders Only Medical Records [address] [place] [address] Abstract, Provider Social History Tobacco Use Types Packs/Day Years [...] on file documented as of this encounter Procedures Procedure Name Priority Date/Time Associated Diagnosis Comments OUTSIDE MAMMO Routine 05/19/2023 documented in this encounter Results * OUTSIDE MAMMO (05/19/2023) Provider Abstract RADIOLOGY documented in this encounter Visit Diagnoses Not on filedocumented in this encounter Care Teams Inspector Balance Truing Relationship Specialty Start Date End Date Donna Montez MD [address] [place] [address] PCP - General 07/10/09 Community, Pcp 07/10/09 documented as of this encounter
--- OUTSIDE RECORDS SUMMARY | 2025-02-25 16:22 | XMS_ITS | Encounter Summary ---
Author Organization [facility] Address [address] [place] [address] Care Team Providers Care Tool Procurement Coordinator Name Role Phone Donna Montez MD Primary Care Provider +1 -[phone] Community, Pcp Unavailable Unavailable Encounter Details Date Type Department Care Team Description 03/31/2015 Orders Only Medicine/Pediatrics - [address] [phone] Giovanni Holm PA-C Diarrhea (Primary Dx) Social History Tobacco Use Types Packs/Day Years [...] on file documented as of this encounter Results * (ABNORMAL) COMPREHENSIVE METABOLIC PANEL (04/01/2015 12:22 PM EDT) [facility] GLUCOSE 109(H) 70 - 100 mg/dL 04/01/2015 12:57 PM EDT [facility] Comment: Reference range applicable to fasting specimens only Based on recommendations from the ADA and AACE, the fasting glucose reference range has been changed to 70-100 mg/dL. ??This change is effective April 09, 2010 BUN 12 5 - 25 mg/dL 04/01/2015 12:57 PM T [facility] CREAT 0.7 0.7 - 1.5 mg/dL 04/01/2015 12:57 PM [facility] BUN/CREAT RATIO 17.1 6.0 - 20.0 04/01/2015 12:57 PM [facility] GFR > 60 >60 04/01/2015 12:57 PM [facility] Comment: If patient is -Gibralt[place], multiply result by 1.21 Chronic Kidney Disease: < 60 ml/min/1.73 square meters Kidney Failure: < 15 ml/min/1.73 square meters Sodium 142 133 - 145 mEq/L 04/01/2015 12:57 PM [facility] Potassium 3.8 3.5 - 5.2 mEq/L 04/01/2015 12:57 PM [facility] Chloride 99 96 - 108 mEq/L 04/01/2015 12:57 PM [facility] CO2 27.5 21.0 - 32.0 mEq/L 04/01/2015 12:57 PM [facility] CALCIUM 9.6 8.5 - 10.5 mg/dL 04/01/2015 12:57 PM [facility] TOTAL PROTEIN 7.0 6.0 - 8.3 gm/dL 04/01/2015 12:57 PM [facility] Albumin 4.4 3.2 - 5.6 gm/dL 04/01/2015 12:57 PM [facility] GLOBULIN 2.6 1.9 - 4.4 gm/dL 04/01/2015 12:57 PM [facility] A/G RATIO 1.7 1.1 - 2.3 04/01/2015 12:57 PM [facility] BILI,TOTAL 0.4 0.0 - 1.2 mg/dL 04/01/2015 12:57 PM [facility] AST (SGOT) 16 10 - 42 U/L 04/01/2015 12:57 PM [facility] ALT( SGPT) 11 10 - 60 U/L 04/01/2015 12:57 PM [facility] ALK PHOS 87 42 - 121 U/L 04/01/2015 12:57 PM [facility] 04/01/2015 12:2 2 PM EDT 04/01/2015 12:23 PM EDT Giovanni Holm PA-C [facility] [address] documented in this encounter Visit Diagnoses Diagnosis Diarrhea- Primary documented in this encounter Care Teams Tool Procurement Coordinator Relationship Specialty Start Date End Date Donna Montez MD [address] [place] [address] PCP - General 07/10/09 Community, Pcp 07/10/09 documented as of this encounter
--- OUTSIDE RECORDS SUMMARY | 2025-02-25 16:23 | XMS_ITS | Encounter Summary ---
Author Organization [facility] Address [address] [place] [address] Care Team Providers Care Hydrogen Operator Name Role Phone Donna Montez MD Primary Care Provider [phone] -[phone] Community, Pcp Unavailable Unavailable Reason for Visit * Reason Onset Date Comments Medication 08/09/2022 Encounter Details Date Type Department Care Team Description 08/09/2022 Refill Gastroenterology [address] [place] [phone] Rodney Ryan MD [address] [place] [address] Medication Social History Tobacco Use Types Packs/Day [...] on filedocumented in this encounter Care Teams Hydrogen Operator Relationship Specialty Start Date End Date Donna Montez MD [address] [place] [address] PCP - General 07/10/09 Community, Pcp 07/10/09 documented as of this encounter
== END 2025-02-25 16:25 | disposition home or self-care (01) ==
LOC: HO.HUSH 14:55
PROVIDERS: Visit Provider Urology
DX: N20.0 Calculus of kidney (principal)
CPT/HCPCS: 99024

== ENCOUNTER → 2025-02-25 14:55 | Outpatient (BNVA) | payer BC, SELFPAY | PROVIDERS: Visit Provider Urology ==

== ENCOUNTER 2025-08-11 | Outpatient (REF) | payer BC, SELFPAY ==
--- NOTE | ~2025-08-11 | US_ITS ---
EXAMINATION: US KIDNEY BILATERAL HISTORY: N20.0 - Calculus of kidney TECHNIQUE: Real-time grayscale ultrasound imaging of the kidneys was performed and images were reviewed. COMPARISON: Comparison is made with the prior examination dated 02/01/2025. FINDINGS: Right kidney: The right kidney measures 11.9 x 4.1 x 4.5 cm. Renal parenchymal thickness is normal. There is increased echotexture of the calyces without change. There are no masses. There is no hydronephrosis or renal calculi. Left Kidney: The left kidney measures 10.8 x 6.2 x 4.5 cm. Renal parenchymal thickness is normal. Again seen is increased echotexture of the calyces. There is a 3 mm nonobstructing calculus at the lower pole without change. There is no hydronephrosis or renal calculi. US/US renal BI IMPRESSION: 3 mm nonobstructing left lower pole renal calculus without change. Echogenic calyces bilaterally. Electronically signed by: Mil Barreto MD 08/12/2025 07:00 AM EDT
[2025-08-11 17:38] LABS: Anion Gap 10 (12-20); Blood Urea Nitrogen 12 mg/dL (9-16); Calcium 9.7 mg/dL (8.4-10.2); Carbon Dioxide 30 mmol/L (22-29); Chloride 106 mmol/L (96-108); Estimated Glomerular Filt Rate > 60; Magnesium 2.1 mg/dL (1.6-2.6); Potassium 3.4 mmol/L (3.3-5.1); Sodium 143 mmol/L (135-145); Uric Acid 4.4 mg/dL (2.4-5.7)
[2025-08-11 18:37] LABS: Parathyroid Hormone Intact 44.3 pg/mL (8.7-77.1)
--- OUTSIDE RECORDS SUMMARY | 2025-09-05 10:08 | XMS_ITS | Clinical Summary ---
Author Organization [address] Address [address] [place] [phone] Phone Care Team Providers Care Installers Mechanical Name Role Phone Yeimi Montez MD Primary [...] 6mo and older 08/14/2020,11/23/2019 Influenza, Unspecified 11/23/2019 Codekko SARS-CoV-2 COVID-19, mRNA, LNP-S, preservative free 10/12/2021 Tdap Tetanus diptheria acell ular pertussis (Boostrix; Adacel) 7yo and older 04/23/2011 Surgical History Surgery Date Site/Laterality Comments TUBAL LIGATION PROCEDURE: HISTORICAL TUBAL LIGATION BREAST BIOPSY 2016 Left PROCEDURE: BX BREAST; PERC NEEDLE CORE W/IMAG GUID; COMMENT: left side bx neg BREAST SURGERY 2016 Bilateral PROCEDURE: [place] UNLISTED PROCEDURE BREAST; COMMENT: implants BREAST REDUCTION 2018 Bilateral PROCEDURE: [place] BREAST REDUCTION; COMMENT: implants removed Medical History [...] AM EDT Office Visit Adult Medicine [address] [phone] Yeimi Montez MD [address] [place] [address] 09/28/2025 3:15 PM EST Office Visit Urogynecology [address] [phone] Reyna Guillen MD [address] [place] [address] 03/16/2026 9:00 AM EDT Office Visit Adult Medicine [address] [phone] Yeimi Montez MD [address] [place], [place] Health Maintenance Due Date Last Done [...] Signed Date: 04/21/2025 05:42 ET Workstation ID: [id number] Transcribed By: Self Edit Transcribed Date: 04/21/2025 [...] Signed Date: 04/21/2025 05:42 ET Workstation ID: [id number] Transcribed By: Self Edit Transcribed Date: 04/21/2025 05:30 ET Alphonse Falcon MD IM CT PROCEDURES Final Result * (ABNORMAL) Lipid panel with reflex to direct LDL (03/18/2025 9:07 AM EDT) Cholesterol 202(H) 0 - 200 mg/dL LAB CHEMISTRY METHOD [facility] Triglycerides 153(H) 0 - 150 mg/dL LAB CHEMISTRY METHOD 03/18/2025 1:04 PM [facility] HDL 47 >=40 mg/dL LAB CHEMISTRY METHOD 03/18/2025 1:04 PM [facility] LDL Calculated 124(H) 0 - 100 mg/dL LAB CHEMISTRY METHOD 03/18/2025 1:04 PM [facility] VLDL Cholesterol Raphael 30.6 mg/dL LAB CHEMISTRY METHOD 03/18/2025 1:04 PM [facility] Non HDL Chol. (LDL+VLDL) 155(H) <145 mg/dL LAB CHEMISTRY METHOD 03/18/2025 1:04 PM [facility] Chol/HDL Ratio 4.3 0.0 - 4.4 LAB CHEMISTRY METHOD 03/18/2025 1:04 PM [facility] Blood Venous blood specimen / Unknown Venipuncture / Unknown 03/18/2025 9:07 AM EDT 03/18/2025 9:07 AM EDT Yeimi Montez MD LAB BLOOD ORDERABL ES Final Result [facility]) [facility] [address] [place] [address], * Hepatitis C Screening (01/07/2024) Hepatitis C Screening Refused, Abstracted Historical Provider MD HEALTH MAINTENANCE Final Result * Pap Smear (01/07/2024) Pap smear No Interpretation , Abstracted Historical Provider HEALTH [facility] Final Result * DIAGNOSTIC MAMMOGRAPHY INCLUDING CAD [...] Most Recently Relevant to Health Maintenance Insurance [facility] Care Teams Installers Mechanical Relationship Specialty Start Date End Date Yeimi Montez MD [address] [place] [id number] PCP - General 07/10/09
== END 2025-08-11 00:01 | disposition home or self-care (01) ==
LOC: HO.US
PROVIDERS: PCP Internal Medicine; Visit Provider Urology
DX: N20.0 Calculus of kidney (principal)
CPT/HCPCS: 36415; 76775; 80048; 82306; 83735; 83970; 84100; 84550

== ENCOUNTER → 2025-08-11 14:39 | Outpatient (BNV) | payer BC, SELFPAY | PROVIDERS: PCP Internal Medicine; Visit Provider Radiology Diagnostic Radiology | DX: N20.0 Calculus of kidney (principal) | CPT/HCPCS: 76775 ==

== ENCOUNTER 2025-08-26 15:07 | Outpatient (AMB) | payer BC, SELFPAY ==
--- NOTE | 2025-08-26 15:07 | A.OFFVIS_ITS ---
Intake Visit Reasons: 6m/US/labs Intake Note: Patient presents today for 6 mo follow up Labs done 08/11/25 Imaging: Ultrasound done 08/11/25 Urology Medication:Vitamin B6, Tamsulosin, Estradiol Antibiotic Allergy:none Blood Thinner:none Biology Professor Required: No Accompanied by: Self / Same As Patient Allergies erythromycin base Allergy (Verified 08/26/25 15:08) Chest Pain HPI Comments Details: Maria D is a pleasant female patient. She is a patient of . She is seen for the following urologic conditions - nephrolithiasis Follow-up Mixed calcium stones Prior Recommend decreased salt and increased water - was taking excess salt secondary to low blood pressure Vitamin B6 50 mg Discussed stone imaging 12 month follow-up Nephrolithiasis Prior left renal stones 09/12/2024 Imaging - 09/16 CT imaging shows proximal ureteric stone and cluster within left kidney - 09/17 renal ultrasound small stone left side Stone composition - 09/16 Calcium Oxalate Dihydrate (Weddellite) 15% Calcium Oxalate Monohydrate ([place]ite) 70% Carbonate Apatite (Dahllite) 15% PFSH Medical History Drug-induced nausea and vomiting Seasonal allergies Surgical History Hx of cystoscopy Hx of breast implants, bilateral Hx of bilateral breast reduction surgery H/O: hysterectomy Family History Other Hx of breast reduction, elective Social History Are you a primary career transition specialist to a significant other at home: No Do you presently have visiting nurse or other home services: No Patient Tobacco Use Status: Current everyday Tobacco user Tobacco use type: Cigarette Cigarettes Per Day: 10 Review of Systems Const Denies chills and Denies fever(s) Card Reports no additional complaints and Denies syncope Resp Denies cough GI Denies abdominal pain and Denies heartburn Reports as per HPI and Denies change in libido Neuro Denies syncope Psych Denies change in libido Endo Denies change in libido Physical Exam Const General: cooperative, healthy appearing, comfortable and no acute distress Orientation/consciousness: patient oriented x3 HEENT Face and sinus: Yes normal facial exam Mouth: moist mucous membranes Neck Neck: Yes normal visual inspection, Yes full ROM and Yes trachea midline Chest Chest palpation & inspection: normal inspection of the chest Resp Effort & Inspection: normal respiratory effort, able to speak in complete sentences and no respiratory distress GI Inspection: Yes normal to inspection Back/Spine/Pelvis Cervical Spine: normal cervical lordosis Thoracic/Lumbar Spine: thoracic and lumbar spine normal to inspection Skin General skin exam: no rashes or lesions noted Neuro General: patient oriented x3, gait normal, tone normal and moves all extremities Extrem General: Yes normal to inspection and Yes capillary refill normal Assessment & Plan Assessment & Plan (1) Kidney stone: Code(s): N20.0 - Calculus of kidney Category: Medical Plan Twelve month follow-up Orders: Orders US renal BI 12 Months N20.0 - Calculus of kidney Kidney Stone Today R10.9 - Unspecified abdominal pain Medications: New prednisone 20 mg PO DAILY 5 tabs 0RF 5 days N20.0 - Calculus of kidney tamsulosin 0.4 mg PO DAILY 14 caps 1RF 14 days N20.0 - Calculus of kidney Refilled pyridoxine (vitamin B6) 50 mg PO DAILY 90 tabs 3RF 90 days N20.0 - Calculus of kidney Discontinued naproxen Discontinued Reason: Doctor's Order 500 mg PO BID 7 days PRN 14 tabs 0RF pain tamsulosin Discontinued Reason: Doctor's Order 0.4 mg PO BEDTIME 14 days 14 caps 0RF Patient Instructions: This note is constructed using voice recognition software. While every effort has been made to ensure accuracy compound filler errors may have been included. Imaging studies, laboratory and physical exam results were discussed and reviewed in detail. No major barriers to patient understanding were identified. An opportunity to ask questions regarding the treatment plan was provided. All questions were answered. The patient expressed understanding and agreement with the above treatment plan. The patient is aware they should contact our office by phone for worsening of their current condition or the appearance of new urologic symptoms. Compliance is encouraged with any medications and followup testing that is ordered. It is a privilege to participate in the urologic care of your patient. If you have any questions or concerns regarding treatment for the above conditions, or other urologic issues, please do not hesitate to contact me. The office telephone contact is [phone]. Sincerely, Dr Edwar Mohamud MD, [facility] - Urology Compassionate Specialist Care for the Genitourinary System Coding Level of Care Code Est Pt Level 3 (67461) Complex EM visit Add On G2211 Diagnoses Kidney stone N20.0
--- OUTSIDE RECORDS SUMMARY | 2025-08-26 15:12 | XMS_ITS | Data Portability ---
Author Organization [place] - [facility],, FLORENCIA BAPTISTE MD Address [address] [address] Care Team Providers Care Merchandise Complaint Adjuster Name Role Phone JESSICAJASONMARGOT FRANK Primary Care Provide r Assessment No assessment recorded. Plan of Treatment Reminders Order Date Submit Date Provider Last Modified By Organization Details Last Modified Time Details Appointments ANNUAL EXAM 2025 08:00A M Florencia Baptiste MD Not available Not available Not available Lab urinalysi s, dipstick 2024 025 smacmillan 1 In-Office Order, Internal Use Only DO Not Attach Compendium DO Not Attach Compendium, Do Not Delete/merge, [id number] 03/03/2025 09:23:48 culture, urine 2024 025 [facility] [address] [place], [address], 03/05/2025 00:05:25 biopsy, cervical 2024 025 [facility] (Centralized Electronic Ordering - All Locations), Patient Can Go To The Location Of Their Choice, [id number] 03/10/2025 07:14:41 cytology report, thin prep, smear or scraping, cervical or vaginal 2024 025 JASEN [facility] (Centralized Electronic Ordering - All Locations), Patient Can Go To The Location Of Their Choice, [id number] 12/04/2024 20:19:49 hemoglobi n, gastroint estinal, stool 2024 025 smacmillan 1 In-Office Order, Internal Use Only DO Not Attach Compendium DO Not Attach Compendium, Do Not Delete/merge, [id number] 11/29/2024 08:47:16 Referral None recorded. Procedures colposcop y with biopsy and endocervi eneida curettage (PROC) 2024 025 DEPEW In-Office Order, Internal Use Only DO Not Attach Compendium DO Not Attach Compendium, Do Not Delete/merge, [id number] 03/03/2025 12:00:38 Surgeries None recorded. Imaging MAMMO, screening , digital, bilateral - Breast Aspiratio n and/or Biopsy if needed 2024 025 [facility], [address], [address], [place], [address], 11/29/2024 16:17:40 Medication Orders estradiol 0.05 mg/24 hr weekly transderm al patch 2024 025 DEPEW [id number], [address] [place], [address], 11/29/2024 08:47:18 Patient TargetsNo targets recorded. Patient Instructions Encounter Date Encounter Id Patient Instructions Last Modified By Organization Details Last Modified Time 11/29/2024 [id number] learning about healthy weight Not available 11/29/2024 08:47:16 She is here [...] of HRT, or at any time postmenopausally. 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 She was new to our practice, her prior pap was before her hysterectomy in 2008. She also has some dysuria and frequency, she would like to rule out a UTI. She smokes 1/2 ppd. She is passing a kidney stone for the past few days, is uncomfortable. 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 Post procedure care discussed. Advised to quit smoking to improve chances of clearing the HPV disease. IF it persists she also has the option of Gardasil series, this was discussed. All questions answered. Urine dip has some blood but has a stone, check culture for symptoms and hematuria. [facility] Not available 03/03/2025 09:33:57 Reason for Referral None Reported. Results Created Date Observation Date Name Description Value Unit Range Abnormal Flag Note LastModifiedBy Organization Detail LastModifiedTime 11/29/1912/04/2024 IGP, RFX APTIM A HPV ASCU diagnosis: Commen t abnormal EPITH ELIAL CELL ABNOR MALIT Y. LOW GRADE SQUAM OUS INTRA EPITH ELIAL LESIO N (LSIL ). Not Available [place] [id number] [facility], [place], [address], 12/04/2024 20:19:49 11/29/19 25 12/04/2024 IGP, RFX APTIM A HPV ASCU specimen adequacy: Deja winkler Satis facto ry for evalu ation . Not Available [address], [address], 12/04/2024 20:19:49 11/29/19 25 12/04/2024 IGP, RFX APTIM A HPV ASCU clinician provided ICD10: Deja winkler Z01.4 19 Not Available [address], [address], 12/04/2024 20:19:49 11/29/19 25 12/04/2024 IGP, RFX APTIM A HPV ASCU performed by: Froilan Robles (ASCP ) Not Available [address], [address], 12/04/2024 20:19:49 11/29/19 25 12/04/2024 IGP, RFX APTIM A HPV ASCU electronical ly signed by: Deja Heredia MD, Patho logis t Not Available [address], [address], 12/04/2024 20:19:49 11/29/19 25 12/04/2024 IGP, RFX APTIM A HPV ASCU . . Not Available [address], [address], 12/04/2024 20:19:49 11/29/19 25 12/04/2024 IGP, RFX APTIM A HPV ASCU pathologist provided ICD10: Deja winkler R87.6 12 Not Available [address], [address], 12/04/2024 20:19:49 11/29/19 25 12/04/2024 IGP, RFX APTIM A HPV ASCU note: Deja winkler The Pap smear is a scree aguila test ángel arnold to aid in the detec tion of josefina ligna nt and malig nant condi tions of the uteri ne cervi x. It is not a diagn ostic proce dure and shoul d not be used as the sole means of detec ting cervi eneida cance r. Both false -posi tive and false -nega tive repor ts do occur . Not Available [address], [address], 12/04/2024 20:19:49 11/29/19 25 12/04/2024 IGP, RFX APTIM A HPV ASCU test methodology: Commen t This liqui d based ThinP rep(R ) pap test was scree clayton with the use of an image guide kaden figueredo. Not Available [address], [address], 12/04/2024 20:19:49 11/29/19 25 12/04/2024 IGP, RFX APTIM A HPV ASCU . Commen t The HPV DNA refle x crite thi were not met with this speci men resul t there fore, no HPV testi ng was perfo rmed. Not Available [address], [address], 12/04/2024 20:19:49 11/29/19 25 11/29/2024 hemog lobin , gastr ointe jaspreet l, stool Occult Blood negati ve Not Available In-Office Order Internal Use Only DO Not Attach Compendium DO Not Attach Compendium, Do Not Delete/merge, [id number] 11/29/2024 08:28:20 03/03/20 25 03/04/2025 URINE CULTU RE, ROUTI NE urine culture, routine Final report Not Available [facility] ([facility]) [address] [place], [address], 03/05/2025 00:05:25 03/03/20 25 03/04/2025 URINE CULTU RE, ROUTI NE result 1 No growth Not Available [facility] ([facility]) [address] [place], [address], 03/05/2025 00:05:25 03/03/20 25 03/03/2025 [facility] SURGI ENEIDA PATHO LOGY results Patie nt Name: AMANDA LOUIS Lab Acces ebony #: [id number] Patie nt : [id number] (Age: 54) Colle ction Date: 2024 Acces ebony Date: 2024 Sign Out Date: 2024 Tissu e Sourc e: 1:CER VIX Final Diagn osis: Cervi x, biops y: - Squam ous mucos a with react lu squam ous epith elial epstein e. A. Endoc ervic al colum sandra compo nent not repre sente d. Prima ry Patho logis t:Dinh bruner M.D. elect demarcus orozco ish d out by: Kelton bruner M.D. / PAMELA Clini eneida Histo ry: 54-ye ar-ol d femal e, LGSIL Gross Descr iptio n: Label ed cerv ix . Recei erika in forma scott are 4 soft echeverria tissu e fragm ents measu ring 0.3 x 0.3 x 0.2 cm-0. 5 x 0.3 x 0.2 cm which are submi tted in toto in 1 casse tte, 4 piece s, x 2. (KD)* As of January 31, 2024, the speci men proce ssing and stain ing is perfo rmed at [facility] , [address], [place] (CLIA #[id number]). Its perfo rmanc e izabella cteri stics deter mined by [facility] rp. Jamie Heredia M.D. Medic al Direc tor of Surgi eneida Patho logy, Kori wu M.D. Medic al Direc tor Cytop athol ogy Phone #: [phone], On-Ca ll Patho logis t: [id number] Not Available [facility] [address] [place] [address], [place], [address], 03/08/2025 18:23:36 03/03/2003/03/2025 urina lysis , dipst ick GLU Negati ve Not Available In-Office Order Internal Use Only DO Not Attach Compendium DO Not Attach Compendium, Do Not Delete/merge, 03/03/2025 09:21:38 03/03/2003/03/2025 urina lysis , dipst ick HEAVEN Negati ve Not Available In-Office Order Internal Use Only DO Not Attach Compendium DO Not Attach Compendium, Do Not Delete/merge, 03/03/2025 09:21:38 03/03/2003/03/2025 urina lysis , dipst ick KET Negati ve Not Available In-Office Order Internal Use Only DO Not Attach Compendium DO Not Attach Compendium, Do Not Delete/merge, 03/03/2025 09:21:38 03/03/2003/03/2025 urina lysis , dipst ick SG 1.010 Not Available In-Office Order Internal Use Only DO Not Attach Compendium DO Not Attach Compendium, Do Not Delete/merge, 03/03/2025 09:21:38 03/03/2003/03/2025 urina lysis , dipst ick BLO Hemoly zed : Trace Not Available In-Office Order Internal Use Only DO Not Attach Compendium DO Not Attach Compendium, Do Not Delete/merge, 03/03/2025 09:21:38 03/03/2003/03/2025 urina lysis , dipst ick pH 7.0 Not Available In-Office Order Internal Use Only DO Not Attach Compendium DO Not Attach Compendium, Do Not Delete/merge, 03/03/2025 09:21:38 03/03/2003/03/2025 urina lysis , dipst ick PRO Negati ve Not Available In-Office Order Internal Use Only DO Not Attach Compendium DO Not Attach Compendium, Do Not Delete/merge, 03/03/2025 09:21:38 03/03/2003/03/2025 urina lysis , dipst ick URO 0.2 E.U. / dl Not Available In-Office Order Internal Use Only DO Not Attach Compendium DO Not Attach Compendium, Do Not Delete/merge, [id number] 03/03/2025 09:21:38 03/03/2003/03/2025 urina lysis , dipst ick NIT negati ve Not Available In-Office Order Internal Use Only DO Not Attach Compendium DO Not Attach Compendium, Do Not Delete/merge, [id number] 03/03/2025 09:21:38 03/03/2003/03/2025 urina lysis , dipst ick KENYA Negati ve Not Available In-Office Order Internal Use Only DO Not Attach Compendium DO Not Attach Compendium, Do Not Delete/merge, [id number] 03/03/2025 09:21:38 11/29/1911/29/2024 MAMMO , scree aguila, digit al, bilat eral No observ ation record ed. [facility] [address], [place], [address], 11/30/2024 08:00:36 Result Notes None recorded. Problems Name Problem SNOMED Code Status Onset Date Resolution Date Notes Provider Name and Address Organization Details Recorded Time Menopausal syndrome 410393260 Active 025 Florencia Baptiste MD [address], [place], [address], [place] - [facility], 08:45:38 Problem Notes None recorded. Procedures Surgical History Date Name Laterality Status Provider Name and Address Organization Details Recorded Time 03/03/20 25 Colposcopy completed Florencia Baptiste MD [address], [place], [address], [place] - [facility], 03/03/2025 09:21:23 08/24/20 24 kidney stone analysis completed Iris Draper [place] - [facility], 03/03/2025 08:56:34 07/25/20 10 laparoscopic bilateral salpingo-oophore ctomy completed Florencia Baptiste MD [address], [place], [address], [place] - [facility], 11/29/2024 08:07:25 10/24/20 09 hysterectomy completed Florencia Baptiste MD [address], [place], [address], [place] - [facility], 11/29/2024 08:08:46 11/24/19 09 Breast Implants completed Iris Draper [place] - [facility], 11/29/2024 08:24:25 Imaging Results None recorded. Procedure Notes None recorded. Medical Equipment None Reported. Allergies Allergen ID Allergen Name Allergen Category Reaction Reaction Severity Criticality Documentation Date Start Date Code Code System Note Provider Name and Address Organization Details Recorded Time 22927 Bactrim medicatio n rash Not available Not available 11/29/2024 04042 9 RxNorm IrisTRISH Morillo in [facility], 08:52:12 [address]4224 erythromy willam medicatio n rash Not available Not available 11/29/2024 4053 RxNorm Iris Meczywor [place] in [facility], 08:52:33 Medications Name Sig Start Date Stop [...] Not Available Not Available No t Available nicotine 14 mg/24 hr daily transdermal patch APPLY ONE PATCH TO THE SKIN EVERY DAY AT THE SAME TIME active Not Available Not Available No t [...] TAKE ONE TABLET BY MOUTH EVERY DAY 03/03 completed Not Available Not Available Not Available metronidazo le 0.75 % (37.5 mg/5 [...] mg tablet TAKE ONE TABLET BY MOUTH DAILY AT BEDTIME NEEDED FOR ANXIETY active Not Available Not Available No t Available tamsulosin 0.4 mg capsule TAKE ONE CAPSULE BY MOUTH DAILY AT BEDTIME active Not Available Not Available No t Available phenazopyri dine 100 mg tablet TAKE [...] Not Available Not Available No t Available clindamycin 2 % vaginal cream INSERT ONE APPLICATO RFUL VAGINALLY DAILY AT BEDTIME FOR 7 DAYS 11/29 completed Not Available Not Available Not Available clobetasol 0.05 % topical ointment APPLY A THIN LAYER TO AFFECTED AREA S) TWO TIMES A DAY FOR NO LONGER THAN 14 DAYS 11/29 completed Not Available Not Available Not Available albuterol sulfate HFA 90 mcg/actuati on aerosol inhaler INHALE TWO PUFFS INTO THE LUNGS EVERY FOUR HOURS NEEDED FOR WHEEZING active Not Available Not Available No t Available ondansetron 4 mg disintegrat ing tablet DISSOLVE ONE TABLET BY MOUTH EVERY 6-8 HOURS NEEDED FOR NAUSEA AND VOMITING 11/29 completed Not Available Not Available Not Available fluticasone propionate 50 mcg/actuati on nasal spray,suspe nsion INSTILL TWO SPRAYS INTO EACH NOSTRIL ONCE DAILY active Not Available Not Available No t Available naproxen 500 mg tablet TAKE ONE TABLET BY MOUTH TWICE A DAY WITH MEALS active Not Available Not Available No t [...] completed Not Available Not Available Not Available Procto-Med HC 2.5 % topical cream perineal applicator APPLY ONE APPLICATI ON TO THE RECTUM TWICE A DAY active Not Available Not Available No t Available Carmita 0.0375 mg/[address] PATCH ON THE SKIN 2 TIMES PER WEEK active Not Available Not Available No t Available Lyllana 0.05 mg/24 hr transdermal patch APPLY 1 PATCH TO SKIN TWICE WEEKLY 03/03 completed Not Available Not Available Not Available Vitals Date Recorded Body height Body mass index (BMI) Body weight Body temperature Heart rate Systolic And Diastolic Provider Name and Address Organization Details Last Updated DateTime 5 160.02 cm 27.1 kg/m2 82927.3 5 g 98.1 [degF] 76 /min 119/66 mm[Hg] Iris Stern in [facility], 5 08:15:13 Date Recorded Body height Body mass index (BMI) Body weight Body temperature Heart rate Systolic And Diastolic Provider Name and Address Organization Details Last Updated DateTime 5 160.02 cm 26.6 kg/m2 67725.8 6 g 97.3 [degF] 66 /min 122/67 mm[Hg] Iris Stern in [facility], 5 08:56:50 Social History Question Answer Notes LastModified by Organizat ion Details LastModified Time Tobacco Smoking Status Current Every Day Smoker Iris milton [place] [facility], 11/29/2024 08:21:31 How Many Years Have You Consumed Alcohol? 34 Information not available 11/29/2024 What Is Your Level Of Caffeine Consumption? Moderate Information not available 11/29/2024 In The 14 Days Before Symptom Onset, Have You Had Close Contact With A Laboratory-confirm ed COVID-19 While That Case Was Ill? No Information n ot available 11/29/2024 In The 14 Days Before Symptom Onset, Have You Had Close Contact With A Person Who Is Under Investigation For COVID-19 While That Person Was Ill? No Information not available 11/29/2024 Have You Been To An Area Known To Be High Risk For COVID-19? No Information not available 11/29/2024 What Is The Highest Grade Or Level Of School You Have Completed Or The Highest Degree You Have Received? CX44123-1 Information not available 11/29/2024 Who Is Your Employer? [employer] Information not available 11/29/2024 Are There Any Guns Present In Your Home? Yes Information not available 11/29/2024 To Which Gender Do You Self-identify? Female Information n ot available 11/29/2024 What Was The Date Of Your Most Recent Tobacco Screening? 03/03/2025 Information not available 03/03/2025 What Is Your Relationship Status? Information not available 11/29/2024 Are You Sexually Active? No Information not available 11/29/2024 At What Age Did You Start Smoking Tobacco? 20 Information not available 11/29/2024 How Much Tobacco Do You Smoke? 0.5 PPD Information not available 11/29/2024 How Many Years Have You Smoked Tobacco? 30 Information not available 11/29/2024 How Many Days In The Past Year Have You Consumed 4 Or More Drinks? 0 Information not available 11/29/2024 Sex: Female Functional Status Question Answer Note LastModified by Organizat ion Details LastModified Time Do you use any illicit or recreational drugs? No Information not available 11/29/2024 Do you or have you ever used any other forms of tobacco or nicotine? No Information not available 11/29/2024 What is your level of alcohol consumption? Occasional rare Information not available 11/29/2024 Are you currently employed? 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 Information not available 11/29/2024 What is your exercise level? Moderate Information not available 11/29/2024 Mental Status Question Answer Note LastModified by Organization D etails LastModified Time Do you feel stressed (tense, restless, nervous, or anxious, or unable to sleep at night)? [id number] Information not available 11/29/2024 Family History Relationship Description Onset Age of this Age Resolved Age Notes LastModified by Organization Details LastModified Time Father Heart disease [email or web address] Not available 2024 08:19:13 Mother Malignant neoplasm of lung tmeczywor Not available 2024 08:19:24 Sister Problem stones ... [email or web address] Not available 11/29/2024 08:19:44 Medical History Condition Response Anesthesia complications N High Blood Pressure N Candidate for MyRisk panel N Autoimmune Condition N Depression N Lung Disease N Defects or Inherited Disease N History of Ovarian Cancer N BRCA testing in past N Anxiety Disorder Y Arthritis N Infertility N History of Cancer N Endometriosis N Kidney or Bladder Problems Y Thyroid Problems N GI Problems N Anemia N History of Breast Cancer N LOWELL exposure N Osteopenia N Psychiatric Illness N Diabetes N Headaches or Migraines N Asthma N Hepatitis N Heart Disease N Hypertension [...] Iris Meczywor null, [place] - [facility], 11/29/2024 08:15:45 COVID-19, mRNA, LNP-S, PF, 30 mcg/0.3 mL dose 1 completed Iris Meczywor null, [place] - [facility], 11/29/2024 08:15:45 COVID-19, mRNA, LNP-S, PF, 30 mcg/0.3 mL dose 1 completed Iris Meczywor null, [place] - [facility], 11/29/2024 08:15:45 COVID-19, mRNA, LNP-S, PF, 30 mcg/0.3 mL dose 1 completed Iris Meczywor null, [place] - [facility], 11/29/2024 08:15:45 Tdap 1 completed Iris Meczywor null, [place] [facility], 11/29/2024 08:15:45 Influenza, split virus, quadrivalent, PF 0 completed Iris Meczywor null, [place] [facility], 11/29/2024 08:15:45 Influenza, split virus, quadrivalent, PF 1 completed Iris Meczywor null, [place] [facility], 11/29/2024 08:15:45 Past Encounters Encounter ID Performer Location Encounter Start Date Encounter Closed Date Diagnosis/Indication Diagnosis SNOMED-CT Code Diagnosis ICD10 Code Diagnosis IMO Codes Diagnosis Note [id number] MD FLORENCIA Woodall MD [address] [facility] [address] [facility] [address] 11/29/2024 08:08:24 11/29/2024 15:38:53 Specialized medical examination 83337764 Z01.419 Screening for malignant neoplasm of rectum 808383287 Z12.12 Screening mammography 24 063852 Z12.31 Menopausal syndrome 1237 03274 N95.1 [id number] MD FLORENCIA WoodallAN MD [address] [facility] [place] [address] 03/03/2025 08:51:53 03/03/2025 15:22:36 Cytologic finding 133516823 R87.612 Acute lowe r urinary tract infection 953223273 R30.0 Health Concerns Section Related Observation LastModified by Organization Detai ls LastModified Time None Recorded Concern Status LastModified by Organization Details LastModified Time None Recorded Advance Directives Directive None Recorded Payers Insurance Date Sequence Insurance Name Policy Number Policy Cao Covered Member ID Cao Member ID Guarantor Name 06/10/2025 1 [facility] [id number] Maria D Uzma [id number] Maria D Uzma Notes Date Note Type Note Provider Name [...] sweats and would like to restart. 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 She was new to our practice, her prior pap was before her hysterectomy in 2008. She also has some dysuria and frequency, she would like to rule out a UTI. She smokes 1/2 ppd. Florencia Baptiste MD [address], [place], [address], [place] - [facility], 03/03/2025 09:34:20 OBGyn Episode No OBEpisode recorded.
--- OUTSIDE RECORDS SUMMARY | 2025-08-26 15:12 | XMS_ITS ---
Author Name [facility] Organization Unknown Care Team Organization Name Specialty Phone Email Start Date End Da kevin [facility] DIEGO CHARLES [facility] 10/01/2022 07/12/2024
--- OUTSIDE RECORDS SUMMARY | 2025-08-26 15:12 | XMS_ITS | Clinical Summary ---
Author Organization [address] Address [address] [place] [phone] Phone Care Team Providers Care Ruling Machine Set Up Operator Name Role Phone Yeimi Montez MD Primary Care Prov ider Allergies Active Allergy Reactions Criticality Noted Date Comments Erythromycin Wheezing 07/10/2009 Sulfamethoxazole-Trimethopri m 12/14/2014 Bactrim Other Reaction(s): Hives/Urticaria, Rash/Dermatitis Medications albuterol HFA (PROAIR HFA ; PROVENTIL HFA ; VENTOLIN HFA) 90 mcg/actuation inhaler Inhale 2 puffs by mouth every 4 (four) hours if needed for wheezing. 6.7 g 3 5 Active fluticasone propionate (FLONASE) 50 mcg/actuation nasal spray Administer 2 sprays into each nostril 1 (one) time each day. 48 g 3 5 Active hydrocortisone (ANUSOL-HC) 2.5 % rectal cream Insert into the rectum 2 (two) times a day. 60 g 1 5 Active LORazepam (ATIVAN) 0.5 mg tablet Take 1 tablet (0.5 mg total) by mouth at bedtime as needed for anxiety. Max Daily Amount: 0.5 mg 30 tablet 5 Active nicotine (NICODERM CQ) 14 mg/[address] 1 patch on the skin 1 (one) time each day at the same time. 30 each 2 5 Active pyridoxine (B-6) 50 mg tablet Take 1 tablet (50 mg total) by mouth 1 (one) time each day. 90 each 1 5 09/11/20 25 Active estradioL (VIVELLE-DOT) 0.0375 mg/[address] 1 patch on the skin 2 (two) times a week. 24 each 1 5 Active Active Problems Problem Noted Date Diagnosed [...] 011 Neck pain 02/26/2011 Radiculitis, cervical 02/26/2011 Immunizations Immunization Administration Dates Next Due Influenza Quadravalent, MDCK , 0.5ml, with preservative (Flucelvax) 6mo and older 08/14/2020,11/23/2019 Influenza, Unspecified 11/23/2019 Exam18 SARS-CoV-2 COVID-19, mRNA, LNP-S, preservative free 10/12/2021 Tdap Tetanus diptheria acell ular pertussis (Boostrix; Adacel) 7yo and older 04/23/2011 Surgical History Surgery Date Site/Laterality Comments TUBAL LIGATION PROCEDURE: HISTORICAL TUBAL LIGATION BREAST BIOPSY 2016 Left PROCEDURE: BX BREAST; PERC NEEDLE CORE W/IMAG GUID; COMMENT: left side bx neg BREAST SURGERY 2016 Bilateral PROCEDURE: CT UNLISTED PROCEDURE BREAST; COMMENT: implants BREAST REDUCTION 2018 Bilateral PROCEDURE: CT BREAST REDUCTION; COMMENT: implants removed Medical History [...] Used Date Smoking Tobacco: Every Day Cigarettes 0.8 37.8 Started: 1987 Smokeless Tobacco: Never Alcohol Use Standard Drinks/Week [...] Pulse 72 09/20/2024 1:53 PM EDT Temperature 36.3 C (97.3 F) 04/20/2025 3:42 PM EDT Respiratory Rate - - Oxygen Saturation - - Inhaled Oxygen Concentration - - Weight 70 kg (154 lb 6.4 oz) 09/20/2024 1:53 PM EDT Height 160 cm (5' 3 ) 09/20/2024 1:53 PM EDT Body Mass Index 27.35 09/20/2024 1:53 PM EDT Plan of Treatment Upcoming Encounters Date Type Department Care Team (Late st Contact Info) Description 09/16/2025 8:30 AM EDT Office Visit Adult Medicine [address] [phone] Yeimi Montez MD [address] [place] [address] 09/28/2025 3:15 PM EST Office Visit Urogynecology [address] [phone] Reyna Guillen MD [address] [place] [address] 03/16/2026 9:00 AM EDT Office Visit Adult Medicine [address] [phone] Yeimi Montez MD [address] [place], [place] Health Maintenance Due Date Last Done Comments Depression Screening 11/24/2024 Breast Cancer Screening 05/13/2025 05/13/20, 05/08/2022, 05/03/2021, Additional history exists Influenza Vaccine (#1) 2025 , 08/14/2020, 11/23/2019, Additional history exists DTaP,Tdap,and Td Vaccines (2 - Td or Tdap) 11/24/2025 04/23/2011 Postponed from 04/23/2021 (Patient Ill Today) Hepatitis B Vaccines (1 of 3 - 19+ 3-dose series) 11/24/2025 Postponed from 1989 (Not clinically appropriate to address at this time) Pneumococcal Vaccine: 50+ Years (1 of 2 - PCV) 11/24/2025 Postponed from 1989 (Not clinically appropriate to address at this time) Zoster Vaccines (1 of 2) 11/24/2025 Pos tponed from 2020 (Patient Does Not Have Time) Lung Cancer Screening (Low Dose CT) 04/20/2026 04/20/2025 Cervical Cancer Screening: Pap Smear 01/07/2027 01/07/2024 Cholesterol Screening (Lipid Panel) 03/18/2030 03/18/2025, 04/30/2016 Colorectal Cancer Screening: Colonoscopy 08/23/2032 08/23/2022 RSV Immunization Adult Patients (1 - 1-dose 75+ series) 2045 COVID-19 Vaccine Discontinued 10/12/2021, , 01/31/2021 Hepatitis C Screening Completed 01/07/2024 HIB Vaccines Aged Out No longer eligi ble based on patient's age to complete this topic HIV Screening Discontinued HPV Vaccines Aged Out No longer eligi [...] age to complete this topic Meningococcal B Vaccine Aged Out No l onger eligible based on patient's age to complete this topic RSV Immunization Patients Under 20 months Aged Out No longer eligible based on patient's age to complete this topic Social Influencers of Health Screening Discontinued Varicella Vaccines Aged Out No longer eligible based on patient's age to complete this topic Procedures Procedure Name Priority Date/Time Associated Diagnosis Comments CT LUNG SCREENING Routine 04/20/2025 4:0 8 PM EDT Encounter for screening for malignant neoplasm of respiratory organs Nicotine dependence, cigarettes, uncomplicated LIPID PANEL WITH REFLEX TO DIRECT LDL Routine 03/18/2025 9:07 AM EDT Routine general medical examination at a health care facility HEPATITIS C SCREENING Routine 01/07/2024 PAP SMEAR Routine 01/07/2024 DIAGNOSTIC MAMMOGRAPHY INCLUDING CAD BILATERAL Routine 05/13/2023 3:16 PM EDT Encounter for screening mammogram for malignant neoplasm of breast COLONOSCOPY Routine 08/23/2022 from Last 3 Months or Most Recently Relevant to Health Maintenance Results * CT Lung Screening (04/20/2025 4:08 PM EDT) Anatomical Region Laterality Modality Chest Computed Tomogra phy 04/21/2025 5:30 AM EDT Impressions 04/21/2025 5:42 AM EDT No suspicious pulmonary nodules Lung RADS 2: Benign Appearance or Behavior - Continue annual screening with LDCT in 12 months. -------- FINAL REPORT -------- Dictated By: Tamika Ferro Dictated Date: 04/21/2025 05:30 ET Assigned Physician: Tamika Ferro Reviewed and Electronically Signed By: Tamika Ferro Signed Date: 04/21/2025 05:42 ET Workstation ID: [id number] Transcribed By: Self Edit Transcribed Date: 04/21/2025 05:30 ET Narrative 04/21/2025 5:42 AM EDT Indication: Greater than 20 total pack-year smoking history, asymptomatic current smoker Technique: Low-dose CT scan of the chest obtained as a lung cancer screening study. Multiplanar reformatted images were obtained. Dose reduction technique: ASIR (Adaptive statistical iterative reconstruction) and/or AEC (automated exposure control) DLP: 161.32 mGy-cm COMPARISON: None. Baseline.. FINDINGS: Lack of intravenous contrast limits evaluation of the ciro, vascular structures and visualized abdominal viscera. Lungs/airways: Secretions within the proximal trachea. Mild bronchial wall thickening. Calcified granulomata. Few scattered sub-5 mm pulmonary nodules. Base of the neck, mediastinum, heart, chest wall, vessels: The assessment of hilar lymphadenopathy is difficult without the use of IV contrast. No enlarged mediastinal lymphadenopathy. Upper abdomen: This study was performed without contrast and with lower than standard dose. These factors reduce the sensitivity for detection of small lesions in the upper abdomen. Diverticulosis. Low-attenuation lesions in the liver which are similar to prior CT of the abdomen dated March 2021. Cholelithiasis. Bones/soft tissues: No suspicious osseous lesion Procedure Note Tamika Ferro MD - 04/21/2025 Indication: Greater than 20 total pack-year smoking history, asymptomaticcurrent smoker Technique: Low-dose CT scan of the chest obtained as a lung cancerscreening study. Multiplanar reformatted images were obtained. Dosereduction technique: ASIR (Adaptive statistical iterative reconstruction)and/or AEC (automated exposure control) DLP: 161.32 mGy-cm COMPARISON: None. Baseline.. FINDINGS: Lack of intravenous contrast limits evaluation of the ciro,vascular structures and visualized abdominal viscera. Lungs/airways: Secretions within the proximal trachea. Mild bronchialwall thickening. Calcified granulomata. Few scattered sub-5 mm pulmonarynodules. Base of the neck, mediastinum, heart, chest wall, vessels: The assessmentof hilar lymphadenopathy is difficult without the use of IV contrast. Noenlarged mediastinal lymphadenopathy. Upper abdomen: This study was performed without contrast and with lowerthan standard dose. These factors reduce the sensitivity for detection ofsmall lesions in the upper abdomen. Diverticulosis. Low-attenuationlesions in the liver which are similar to prior CT of the abdomen datedM2020. Cholelithiasis. Bones/soft tissues: No suspicious osseous lesion IMPRESSION: No suspicious pulmonary nodules Lung RADS 2: Benign Appearance or Behavior - Continue annual screeningwith LDCT in 12 months. -------- FINAL REPORT -------- Dictated By: Tamika Ferro Dictated Date: 04/21/2025 05:30 ET Assigned Physician: Tamika Ferro Reviewed and Electronically Signed By: Tamika Ferro Signed Date: 04/21/2025 05:42 ET Workstation ID: [id number] Transcribed By: Self Edit Transcribed Date: 04/21/2025 05:30 ET Alphonse Falcon MD IM CT PROCEDURES Final Result * (ABNORMAL) Lipid panel with reflex to direct LDL (03/18/2025 9:07 AM EDT) Cholesterol 202(H) 0 - 200 mg/dL LAB CHEMISTRY METHOD [facility] Triglycerides 153(H) 0 - 150 mg/dL LAB CHEMISTRY METHOD 03/18/2025 1:[address] [facility] HDL 47 >=40 mg/dL LAB CHEMISTRY METHOD 03/18/2025 1:[address] [facility] LDL Calculated 124(H) 0 - 100 mg/dL LAB CHEMISTRY METHOD 03/18/2025 1:[address] [facility] VLDL Cholesterol Raphael 30.6 mg/dL LAB CHEMISTRY METHOD 03/18/2025 1:[address] [facility] Non HDL Chol. (LDL+VLDL) 155(H) <145 mg/dL LAB CHEMISTRY METHOD 03/18/2025 1:[address] [facility] Chol/HDL Ratio 4.3 0.0 - 4.4 LAB CHEMISTRY METHOD 03/18/2025 1:[address] [facility] Blood Venous blood specimen / Unknown Venipuncture / Unknown 03/18/2025 9:07 AM EDT 03/18/2025 9:07 AM EDT Yeimi Montez MD LAB BLOOD ORDERABL ES Final Result [facility]) [facility] [address] [place] [address], * Hepatitis C Screening (01/07/2024) Hepatitis C Screening Refused, Abstracted Historical Provider MD HEALTH MAINTENANCE Final Result * Pap Smear (01/07/2024) Pap smear No Interpretation , Abstracted Historical Provider HEALTH [facility] Final Result * DIAGNOSTIC MAMMOGRAPHY INCLUDING CAD [...] slightly medial breast on provide this exam. Status post breast reduction surgery. Full field [...] area and medial breast mid 3rd depth. Additionally there is a small asymmetric opacity in the left upper outer breast which was not present previously. It persists on the additional spot compression views. Limited ultrasound of the left breast. Evaluation of the area pointed by the patient in the upper medial breast corresponds to lipid cysts. No other cystic or solid masses were identified. Evaluation of the upper outer posterior left breast revealed no cystic or solid masses or focal acoustic shadowing. CONCLUSIONS: Palpable abnormality in the left breast superior and medial to the nipple most likely due to presence of lipid cysts. Small asymmetric density persisting on the additional views without ultrasonographic correlation. Findings were explained to the patient. She was given an option of breast MRI for stereotactic core biopsy of this asymmetric opacity. Patient injected the stereotactic core biopsy. She will be contacted by our staff for [...] BIRADS 4, suspicious abnormality. Trinity Ohara MD IM BI PROCEDURES Final Result * Colonoscopy (08/23/2022) Colonoscopy No Interpretation , Abstracted Anatomical Region Laterality Modality Other us Historical Provider HEALTH MAINTENANCE Final Result from Last 3 Months or Most Recently Relevant to Health Maintenance Insurance [facility] Care Teams Ruling Machine Set Up Operator Relationship Specialty Start Date End Date Yeimi Montez MD [address] [place] [id number] PCP - General 07/10/09
== END 2025-08-26 15:27 | disposition home or self-care (01) ==
LOC: HO.HUSH 15:07
PROVIDERS: Visit Provider Urology
DX: N20.0 Calculus of kidney (principal)
CPT/HCPCS: 99213

== ENCOUNTER 2025-08-26 15:07 | Outpatient (REF) | payer BC, SELFPAY | END 2025-08-26 15:08 | disposition home or self-care (01) | LOC: HO.LAB 15:07 | PROVIDERS: Visit Provider Urology | DX: N20.0 Calculus of kidney (principal); R10.9 Unspecified abdominal pain; Z79.899 Other long term (current) drug therapy | CPT/HCPCS: 82365 ==

== ENCOUNTER 2025-09-08 11:11 | Outpatient (REF) | payer BC, SELFPAY ==
[2025-09-08 12:26] LABS: Appearance Urine Clear; Glucose Urine UA Negative (Negative); PH 7.0 (5.0-9.0); Specific Gravity - Urine <= 1.005 (1.005-1.025); UMIC TRIGGER UA YES
--- OUTSIDE RECORDS SUMMARY | 2025-09-08 14:20 | XMS_ITS | Clinical Summary ---
Author Organization [address] Address [address] [place] [phone] Phone Care Team Providers Care Patient Service Coordinator Name Role Phone Yeimi Montez MD Primary [...] 6mo and older 08/14/2020,11/23/2019 Influenza, Unspecified 11/23/2019 Brammo SARS-CoV-2 COVID-19, mRNA, LNP-S, preservative free 10/12/2021 Tdap Tetanus diptheria acell ular pertussis (Boostrix; Adacel) 7yo and older 04/23/2011 Surgical History Surgery Date Site/Laterality Comments TUBAL LIGATION PROCEDURE: HISTORICAL TUBAL LIGATION BREAST BIOPSY 2016 Left PROCEDURE: BX BREAST; PERC NEEDLE CORE W/IMAG GUID; COMMENT: left side bx neg BREAST SURGERY 2016 Bilateral PROCEDURE: [place] UNLISTED PROCEDURE BREAST; COMMENT: implants BREAST REDUCTION 2018 Bilateral PROCEDURE: [place] BREAST REDUCTION; COMMENT: implants removed Medical History [...] 8:30 AM EDT Office Visit Adult Medicine [address] [phone] Yeimi Montez MD [address] [place] [address] 09/28/2025 3:15 PM EST Office Visit Urogynecology [address] [phone] Reyna Guillen MD [address] [place] [address] 03/16/2026 9:00 AM EDT Office Visit Adult Medicine [address] [phone] Yeimi Montez MD [address] [place], [place] Health Maintenance Due Date Last Done [...] Signed Date: 04/21/2025 05:42 ET Workstation ID: [id number] Transcribed By: Self Edit Transcribed Date: 04/21/2025 [...] Signed Date: 04/21/2025 05:42 ET Workstation ID: [id number] Transcribed By: Self Edit Transcribed Date: 04/21/2025 05:30 ET Alphonse Falcon MD IM CT PROCEDURES Final Result * (ABNORMAL) Lipid panel with reflex to direct LDL (03/18/2025 9:07 AM EDT) Cholesterol 202(H) 0 - 200 mg/dL LAB CHEMISTRY METHOD [facility] Triglycerides 153(H) 0 - 150 mg/dL LAB CHEMISTRY METHOD 03/18/2025 1:04 PM [facility] HDL 47 >=40 mg/dL LAB CHEMISTRY METHOD 03/18/2025 1:04 PM [facility] LDL Calculated 124(H) 0 - 100 mg/dL LAB CHEMISTRY METHOD 03/18/2025 1:04 PM [facility] VLDL Cholesterol Raphael 30.6 mg/dL LAB CHEMISTRY METHOD 03/18/2025 1:04 PM [facility] Non HDL Chol. (LDL+VLDL) 155(H) <145 mg/dL LAB CHEMISTRY METHOD 03/18/2025 1:04 PM [facility] Chol/HDL Ratio 4.3 0.0 - 4.4 LAB CHEMISTRY METHOD 03/18/2025 1:04 PM [facility] Blood Venous blood specimen / Unknown Venipuncture / Unknown 03/18/2025 9:07 AM EDT 03/18/2025 9:07 AM EDT Yeimi Montez MD LAB BLOOD ORDERABL ES Final Result [facility] [address] [place] [address], * Hepatitis C Screening (01/07/2024) Hepatitis C Screening Refused, Abstracted Historical Provider MD HEALTH MAINTENANCE Final Result * Pap Smear (01/07/2024) Pap smear No Interpretation , Abstracted Historical Provider HEALTH [facility] Final Result * DIAGNOSTIC MAMMOGRAPHY INCLUDING CAD [...] Most Recently Relevant to Health Maintenance Insurance [facility] Care Teams Patient Service Coordinator Relationship Specialty Start Date End Date Yeimi Montez MD [address] [place] [id number] PCP - General 07/10/09
== END 2025-09-08 11:12 | disposition home or self-care (01) ==
LOC: HO.LAB 11:11
PROVIDERS: PCP Internal Medicine; Visit Provider Urology
DX: N20.0 Calculus of kidney (principal)
CPT/HCPCS: 81001; 87086